=== PATIENT | female | born 1950 | race African-American/Black ===

== ENCOUNTER → 2016-12-25 | Outpatient (CLI) | payer OTHER ==
[2016-09-13 20:19] VITALS: BP 135/80
[~2016-12-25] MED LIST: ASPI81TA2 PO; ATOR40TA PO; BUDE10.2 IH; CARV25TA PO; CLOP75TA27 PO; CYCL10TA2 PO; FURO20TA3 PO; GABA600T2 PO; HYDR25TA PO; HYDR500C3 PO; LANS30CA17 PO; LIDO700A4 TP; LOSA50TA6 PO; MECL-51 PO; NIAC500T PO; NITR0.4T SL; OXYB5TAB7 PO; POTA10TA10 PO; SUCR1TAB29 PO; VENTOLIN HFA18 GM IH; ZOLP10TA4 PO; [UNRECOGNIZED DRUG - CODE] OP
--- NOTE | 2016-12-25 14:38 | RAD ---
Indication: Pain in the left foot and third toe. Time of exam 1426 hours. Bunion deformity is noted. The metatarsals are intact. Phalanges appear intact. Midfoot and hindfoot are unremarkable. No fractures are seen. Impression: Bunion deformity. No acute bony abnormality detected.
== END | disposition home or self-care (01) ==
LOC: RAD 13:49
PROVIDERS: ATTEND Family Medicine
DX: M79.672 Pain in left foot (principal); M79.675 Pain in left toe(s)
CPT/HCPCS: 73630

== ENCOUNTER 2017-01-31 01:58 | Emergency (ER) | payer OTHER ==
[~2017-01-31] VITALS: Ht 172.7 cm; Wt 80.3 kg
[2017-01-31] MEDS ORDERED: HYDROMORPHONE 2 MG/ML VIAL. IM ONE (02:30)
[2017-01-31] MEDS ORDERED: ONDANSETRON ODT 4 MG TAB.RAPDIS PO ONE (02:30)
[2017-01-31] MEDS ORDERED: OXYC-323 PO (03:49)
[2017-01-31] MEDS ORDERED: ONDA4TAB10 SL (03:49)
--- NOTE | 2017-01-31 03:50 | PHYS DOC ---
Past Medical History Past Medical History: Asthma, CHF, COPD, High Cholesterol, Hypertension, Pneumonia, Stroke Past Surgical History: Hysterectomy, Knee Replacement, Tonsillectomy, Other Additional Past Surgical Histo: ICD,carotid, trach,hernia repair,lypoma removals,L ANKLE & KNEE FUSIONS Alcohol Use: None Drug Use: None Adult General Chief Complaint Chief Complaint: MECHANICAL FALL HPI HPI Patient is a 66 year old female who presents to the ER after falling down on an outstretched hand and have a fracture of her distal radius. Patient reports that she was trying to walk to the bathroom and tripped. Patient presents with complaint of pain to her left wrist. Patient denies any other symptomatology. Patient denies any head trauma or loss of consciousness. Patient denies any chest pain or dizziness. Patient has a nausea vomiting diarrhea cough cold rhinorrhea. Patient has any hip pain or any other extremity discomfort. Patient's physical exam was significant for deformity to her left hip. Neurovascularly the patient is intact. She has good capillary refill. Sensation is intact. Patient's gait handgrip. Patient was placed in a sugar tong splint and will follow up with Dr. Hernandez early. I discussed the case with Dr. Forrest and he said that he will be able see her at 9 AM in the morning. This was discussed with the patient and she reports that she will be able to make this appointment. Review of Systems Review of Systems Constitutional: Denies fever or chills [] Eyes: Denies change in visual acuity, redness, or eye pain [] All other review systems are negative except as documented in the history of present illness portion. Current Medications Current Medications Current Medications Medications (Trade) Dose Ordered Sig/Junior Start Time Stop Time Status Last Admin Dose Admin Hydromorphone HCl (Dilaudid) 1 mg 1X ONCE 01/31/17 02:30 01/31/17 02:31 DC 01/31/17 02:51 1 MG Ondansetron HCl (Zofran Odt) 4 mg 1X ONCE 01/31/17 02:30 01/31/17 02:31 DC 01/31/17 02:51 4 MG Allergies Allergies Allergies Coded Allergies Type Severity Reaction Last Updated Verified JU Inhibitors Allergy Severe ANAPHYLAXIS 09/13/16 Yes levofloxacin Allergy Severe ANAPHYLAXIS 09/13/16 Yes Sulfa (Sulfonamide Antibiotics) Allergy Intermediate RASH 09/13/16 Yes celecoxib Allergy Intermediate ANAPHYLAXIS 09/13/16 No digoxin Allergy Intermediate 01/31/17 Yes doxycycline Allergy Intermediate RASH 09/13/16 Yes hydrochlorothiazide Allergy Intermediate 01/31/17 Yes hydrocodone Allergy Intermediate 01/31/17 Yes lisinopril Allergy Intermediate 01/31/17 Yes oxycodone Allergy Intermediate 01/31/17 Yes pentazocine Allergy Intermediate RASH 09/13/16 Yes nortriptyline Allergy Mild STOMACH UPSET 09/13/16 Yes Physical Exam Physical Exam Constitutional: Well developed, well nourished, no acute distress, non-toxic appearance. [] HENT: Normocephalic, atraumatic, bilateral external ears normal, oropharynx moist, no oral exudates, nose normal. [] Eyes: PERRLA, EOMI, conjunctiva normal, no discharge. [] Neck: Normal range of motion, no tenderness, supple, no stridor. [] Lungs & Thorax: Bilateral breath sounds clear to auscultation [] Abdomen: Bowel sounds normal, soft, no tenderness, no masses, no pulsatile masses. [] Skin: Warm, dry, no erythema, no rash. [] Back: No tenderness, no CVA tenderness. [] Extremities: See above Neurologic: Alert and oriented X 3, normal motor function, normal sensory function, no focal deficits noted. [] Psychologic: Affect normal, judgement normal, mood normal. [] Current Patient Data Vital Signs Vital Signs Date Time Temp Pulse Resp B/P Pulse Ox O2 Delivery O2 Flow Rate FiO2 01/31/17 04:29 78 18 103/77 95 Room Air 01/31/17 02:03 98.5 98.5 EKG EKG [] Radiology/Procedures Radiology/Procedures [] Course & Med Decision Making Course & Med Decision Making Pertinent Labs and Imaging studies reviewed. (See chart for details) [] Dragon Disclaimer Dragon Disclaimer This electronic medical record was generated, in whole or in part, using a voice recognition dictation system. Departure Departure Impression: Primary Impression: Distal radius fracture, left Disposition: 01 HOME, SELF-CARE Condition: IMPROVED Referrals: BRONSON SHEARER MD (PCP) TOYA ARMSTRONG II, MD Patient Instructions: Cast or Splint Care, Radius Fracture with [facility] Additional Instructions: Please follow up with Dr. Aberle today in his office at 9 AM. Scripts Ondansetron (Zofran Odt)4 Mg Tab.rapdis1 Tab SL Q6HRS PRN NAUSEA #20 TAB Prov:SALOME SHI MD 01/31/17 Oxycodone/Apap 5-325 (Percocet 5-325 Mg Tablet)1 Each Tablet1 Tab PO Q6-8HRS PRN PAIN #30 TAB Prov:SALOME SHI MD 01/31/17 Problem Qualifiers Primary Impression: Distal radius fracture, left Encounter type: initial encounter Fracture type: closed Fracture morphology : other intra-articular Qualified Code: S52.572A - Other intraarticular fracture of lower end of left radius, initial encounter for closed fracture SALOME SHI MD Jan 31, 2017 03:49
[2017-01-31 04:29] VITALS: BP 103/77
--- NOTE | 2017-01-31 07:19 | RAD ---
Exam performed: 4 views left wrist. History: Wrist pain, status post fall. Date of service: 01/31/17. Comparison: 02/03/08. Findings: AP, oblique and lateral views of the left wrist are obtained. There is a impacted nondisplaced fracture distal radius with mild volar angulation. Chronic changes in the ultrasound process. There is diffuse soft tissue swelling. No foreign body. Impression: Acute Impacted somewhat angulated fracture distal left radius.
--- NOTE | 2017-01-31 07:21 | RAD ---
Exam performed: 2 views left forearm. History: Left forearm pain, status post fall. Date of service: 01/31/17. Comparison: None available Findings: AP and lateral view of the left forearm are obtained. There is a impacted what angulated fracture of the distal left radius with associated soft tissue swelling. The elbow joint appears to bodies are identified. Impression: Impacted somewhat angulated fracture distal left radius.
== END 2017-01-31 05:25 | disposition home or self-care (01) ==
LOC: ER 01:58
DX: S52.572A Other intraarticular fracture of lower end of left radius, initial encounter for closed fracture (principal); R11.2 Nausea with vomiting, unspecified; R19.7 Diarrhea, unspecified; J00 Acute nasopharyngitis [common cold]; J45.909 Unspecified asthma, uncomplicated; I11.0 Hypertensive heart disease with heart failure; I50.9 Heart failure, unspecified; J44.9 Chronic obstructive pulmonary disease, unspecified; E78.00 Pure hypercholesterolemia, unspecified; Z88.1 Allergy status to other antibiotic agents; Z88.5 Allergy status to narcotic agent; Z88.2 Allergy status to sulfonamides; Z86.73 Personal history of transient ischemic attack (TIA), and cerebral infarction without residual deficits; Z87.01 Personal history of pneumonia (recurrent); Z96.659 Presence of unspecified artificial knee joint; Z88.8 Allergy status to other drugs, medicaments and biological substances; W01.0XXA Fall on same level from slipping, tripping and stumbling without subsequent striking against object, initial encounter; Y93.01 Activity, walking, marching and hiking; Y92.89 Other specified places as the place of occurrence of the external cause; Y99.8 Other external cause status
CPT/HCPCS: 29125; 73090; 73110; 96372; 99284; J1170; Q0162

== ENCOUNTER → 2017-05-28 | Outpatient (CLI) | payer OTHER ==
[~2017-05-28] MED LIST changes: +ASPI-630 PO; -ASPI81TA2 PO; -CLOP75TA27 PO; +CLOP75TA57 PO; +HYDR500C16 PO; -HYDR500C3 PO; -LANS30CA17 PO; +LANS30CA66 PO; +ONDA4TAB10 SL; +OXYC-323 PO; -POTA10TA10 PO; +POTA10TA12 PO; -SUCR1TAB29 PO; +SUCR1TAB35 PO
--- NOTE | 2017-05-28 15:19 | RAD ---
DATE: May 28, 2017 EXAM: DIGITAL SCREEN BILAT W/CAD HISTORY: Screening study. COMPARISON: 2014 and 2015 This study was interpreted with the benefit of Computerized Aided Detection (CAD). FINDINGS: The breast parenchyma shows scattered fibroglandular densities. There are no dominant suspicious masses, suspicious microcalcifications or evidence of architectural distortion. IMPRESSION: No mammographic indicators for malignancy. BI-RADS CATEGORY: 1 NEGATIVE RECOMMENDED FOLLOW-UP: 12M 12 MONTH FOLLOW-UP PQRS compliance statement: Patient information was entered into a reminder system with a target due date for the next mammogram. Mammography is a sensitive method for finding small breast cancers, but it does not detect them all and is not a substitute for careful clinical examination. A negative mammogram does not negate a clinically suspicious finding and should not result in delay in biopsying a clinically suspicious abnormality. "Our facility is accredited by the [employer] Mammography Program." The patient's breast density may affect the ability of mammography to detect breast cancer. There are 4 categories of breast density, A, B, C and D. Breast density A means that most of the breast tissue is replaced with adipose tissue and therefore is not dense. Breast density B means that the breast tissue is mildly dense and scattered. Breast density C means that the breast tissue is heterogeneously dense. Breast density D means that the breast tissue is very dense. Breast densities especially C and D may decrease the sensitivity of mammography to detect breast cancer. Therefore, the patient may benefit from 3-D breast mammography (3D breast tomography) as a part of their screening mammogram. Insurance may or may not pay for this additional imaging. The patient's breast density based on today's mammogram is category B.
== END | disposition home or self-care (01) ==
LOC: MAMMO 14:22
PROVIDERS: ATTEND Family Medicine
DX: Z12.31 Encounter for screening mammogram for malignant neoplasm of breast (principal)
CPT/HCPCS: G0202; 77067

== ENCOUNTER → 2017-08-05 | Outpatient (CLI) | payer OTHER ==
--- NOTE | 2017-08-05 09:50 | PMGORTHO ---
Left wrist, 3 views, 08/05/2017: History: Follow-up wrist fracture Comparison is made to a study from 05/02/2017. There is now bridging callus at the site of the distal radial fracture. The fracture fragments are unchanged in position with mild volar displacement and angulation of the major distal fracture fragment. No new bony abnormality is detected. IMPRESSION: Interval healing of the distal radial fracture.
== END ==
LOC: PMGORTHO 09:24
PROVIDERS: ATTEND Orthopaedic Surgery Sports Medicine

== ENCOUNTER 2017-09-11 16:09 | Emergency (ER) | payer OTHER ==
[~2017-09-11] VITALS: Ht 165.1 cm; Wt 83.0 kg
[2017-09-11] MEDS ORDERED: ACETAMINOPHEN 500 MG TABLET PO ONE (18:15)
--- NOTE | 2017-09-11 19:05 | PHYS DOC ---
Past Medical History Past Medical History: Asthma, CHF, COPD, High Cholesterol, Hypertension, Pneumonia, Stroke Past Surgical History: Hysterectomy, Knee Replacement, Tonsillectomy, Other Additional Past Surgical Histo: ICD,carotid, trach,hernia repair,lypoma removals,L ANKLE & KNEE FUSIONS Alcohol Use: None Drug Use: None Adult General Chief Complaint Chief Complaint: VISION PROBLEM HPI HPI Patient is a 66 year old AA female with history of cataracts who presents with right-sided headache/facial pain and orbital swelling after fall 4 days ago landing on her face. Patient states she tripped and lower face first pressing or glasses against her orbital rim. Denies loss of consciousness, neck pain. Patient takes daily aspirin but is not on other anticoagulants. Patient denies neck pain or any other injury or complaint. Reports pain with with right upward gaze, and difficulty reading due to blurred vision. Denies double vision, Review of Systems Review of Systems Review symptoms as per history of present illness. All other review symptoms are negative. Current Medications Current Medications Current Medications Medications (Trade) Dose Ordered Sig/Junior Start Time Stop Time Status Last Admin Dose Admin Acetaminophen (Tylenol) 1,000 mg 1X ONCE 09/11/17 18:15 09/11/17 18:16 DC 09/11/17 18:33 1,000 MG Allergies Allergies Allergies Coded Allergies Type Severity Reaction Last Updated Verified JU Inhibitors Allergy Severe ANAPHYLAXIS 09/13/16 Yes levofloxacin Allergy Severe ANAPHYLAXIS 09/13/16 Yes Sulfa (Sulfonamide Antibiotics) Allergy Intermediate RASH 09/13/16 Yes celecoxib Allergy Intermediate ANAPHYLAXIS 09/13/16 No digoxin Allergy Intermediate 01/31/17 Yes doxycycline Allergy Intermediate RASH 09/13/16 Yes hydrochlorothiazide Allergy Intermediate 01/31/17 Yes hydrocodone Allergy Intermediate 01/31/17 Yes lisinopril Allergy Intermediate 01/31/17 Yes oxycodone Allergy Intermediate 01/31/17 Yes pentazocine Allergy Intermediate RASH 09/13/16 Yes nortriptyline Allergy Mild STOMACH UPSET 09/13/16 Yes Physical Exam Physical Exam Constitutional: Well developed, well nourished, no acute distress, non-toxic appearance. [] HENT: Normocephalic, right superior orbital rim hematoma, right periorbital contusion, bilateral external ears normal, oropharynx moist, no oral exudates, nose normal. [] Eyes: PERRLA, EOMI, right lateral scleral urge. Hyphema. Normal limited posterior funduscopic exam. No proptosis. Neck: Normal range of motion, no tenderness, supple, no stridor. [] Cardiovascular:Heart rate regular rhythm, no murmur [] Lungs & Thorax: Bilateral breath sounds clear to auscultation [] Extremities: No tenderness, no cyanosis, no clubbing, ROM intact, no edema. [] Neurologic: Alert and oriented X 3, normal motor function, normal sensory function, no focal deficits noted. [] Psychologic: Affect normal, judgement normal, mood normal. [] Current Patient Data Vital Signs Vital Signs Date Time Temp Pulse Resp B/P (MAP) Pulse Ox O2 Delivery O2 Flow Rate FiO2 09/11/17 16:57 98.5 76 20 157/86 (109) 99 Room Air 98.5 EKG EKG [] Radiology/Procedures Radiology/Procedures [CT head/orbital: No acute injury per radiology report.] Course & Med Decision Making Course & Med Decision Making Pertinent Labs and Imaging studies reviewed. (See chart for details) [Patient with soft tissue facial trauma with normal posterior otoscopic exam. Extraocular muscles are intact with no entrapment. Visual acuity is noted 20/40 left eye, 20/50 right eye and 20/[address] head/orbits reviewed.] Dragon Disclaimer Dragon Disclaimer This electronic medical record was generated, in whole or in part, using a voice recognition dictation system. Departure Departure Impression: Primary Impression: Orbital contusion Additional Impression: Blurred vision, right eye Disposition: ADMITTED INPATIENT Condition: STABLE Referrals: BRONSON SHEARER MD (PCP) Patient Instructions: Eye - Blurred Vision Additional Instructions: Please contact Dr. Andino's office and schedule a follow-up appointment in the next 2-3 days. Take tramadol as needed for pain. If you develop new or concerning symptoms, please return to the emergency department. Problem Qualifiers SOHAIL ZUNIGA DO Sep 11, 2017 19:05
--- NOTE | 2017-09-11 19:09 | RAD ---
CT scan of the head without contrast 09/11/2017 Clinical History: Fall with head trauma. Technique: Unenhanced, contiguous, 5 mm axial sections were obtained through the head. One or more of the following individualized dose reduction techniques were utilized for this study: 1. Automated exposure control. 2. Adjustment of the mA and/or kV according to patient size. 3. Use of iterative reconstruction technique. Findings: Comparison study is dated 01/04/2013. There is generalized parenchymal atrophy. Areas of decreased attenuation are seen within the periventricular and subcortical white matter of both cerebral hemispheres consistent with areas of small vessel ischemic disease. Areas of encephalomalacia is seen throughout both cerebellar hemispheres, unchanged. No acute parenchymal abnormality is seen. No extra-axial fluid collection is noted. No skull fracture is seen. Impression: No acute intracranial abnormality is seen. Electronically signed by: Ángel Ibrahim MD (09/11/2017 7:06 PM) [facility]
--- NOTE | 2017-09-11 19:11 | RAD ---
CT scan of the orbits without contrast 09/11/2017 CLINICAL HISTORY: Fall with injury to the right orbit. TECHNIQUE: Unenhanced, contiguous, 0.625 mm axial sections were obtained through the orbits. 3 mm reconstructed sagittal, axial and coronal images were obtained. One or more of the following individualized dose reduction techniques were utilized for this study: 1. Automated exposure control. 2. Adjustment of the mA and/or kV according to patient size. 3. Use of iterative reconstruction technique. FINDINGS: Preseptal soft tissue swelling is seen involving the right orbit. No orbital fracture is seen. Mild mucosal thickening is seen involving the ethmoid air cells bilaterally. A 1 cm mucous retention cyst is seen involving the right maxillary sinus. No air-fluid level is seen. No facial bone fracture is seen. IMPRESSION: No orbital fracture is seen. Electronically signed by: Ángel Ibrahim MD (09/11/2017 7:08 PM) [facility]
[2017-09-11 20:15] VITALS: BP 156/76
--- NOTE | 2017-09-12 06:40 | EKG ---
[facility] [address] [place] [address] Test Date: 2017-09-11 Test Time: 17:45:07 Pat Name: EMERY VOGT Department: Room: Gender: F Clinical Services Consultant: : 1950 Requested By: SOHAIL ZUNIGA Order Number: [id number] Reading MD: Noemy Kinsey Measurements Intervals [place] Rate: 70 P: 35 WY: 186 QRS: 34 QRSD: 118 T: 49 QT: 422 QTc: 459 Interpretive Statements SINUS RHYTHM LEFT ATRIAL ABNORMALITY ABNORMAL ECG Electronically Signed On 09-14-2017 18:51:18 CDT by Nomey Kinsey
== END 2017-09-11 20:25 | disposition other institution (70) ==
LOC: ER 16:09
DX: S05.11XA Contusion of eyeball and orbital tissues, right eye, initial encounter (principal); I11.0 Hypertensive heart disease with heart failure; I50.9 Heart failure, unspecified; J44.9 Chronic obstructive pulmonary disease, unspecified; E78.00 Pure hypercholesterolemia, unspecified; Z86.73 Personal history of transient ischemic attack (TIA), and cerebral infarction without residual deficits; Z90.710 Acquired absence of both cervix and uterus; Z88.2 Allergy status to sulfonamides; Z88.1 Allergy status to other antibiotic agents; Z88.8 Allergy status to other drugs, medicaments and biological substances; Z88.6 Allergy status to analgesic agent; W01.0XXA Fall on same level from slipping, tripping and stumbling without subsequent striking against object, initial encounter; Y93.89 Activity, other specified; Y99.8 Other external cause status; Y92.89 Other specified places as the place of occurrence of the external cause
CPT/HCPCS: 70450; 70480; 93005; 99284-25

== ENCOUNTER → 2018-06-01 | Outpatient (CLI) | payer MEDICARE, OTHER | END | disposition home or self-care (01) | LOC: MAMMO 13:58 | DX: Z12.31 Encounter for screening mammogram for malignant neoplasm of breast (principal); I11.0 Hypertensive heart disease with heart failure; I50.9 Heart failure, unspecified; E78.5 Hyperlipidemia, unspecified; E78.00 Pure hypercholesterolemia, unspecified | CPT/HCPCS: 77063; 77067 ==

== ENCOUNTER → 2018-12-24 | Outpatient (CLI) | payer MEDICARE, OTHER ==
[~2018-12-24] MED LIST changes: +LOSA-73 PO; -LOSA50TA6 PO; -OXYC-323 PO; +OXYC1TAB15 PO
--- NOTE | 2018-12-25 08:25 | RAD ---
PQRS Compliance Statement: One or more of the following individualized dose reduction techniques were utilized for this examination: 1. Automated exposure control 2. Adjustment of the mA and/or kV according to patient size 3. Use of iterative reconstruction technique CT ABD PEL W/ORAL CONTRST ONLY Clinical Indication: LUQ MASS NO PAIN Comparison: CT abdomen and pelvis without contrast July 03, 2009. Technique: Helical CT imaging of the abdomen and pelvis is performed without IV contrast. Oral contrast is administered. Findings: Evaluation of solid organs is limited without IV contrast, decreasing sensitivity for detection of pathology. Mild atelectasis or scarring in the lung bases. Cardiac ICD leads. Mild cardiomegaly. There is mitral annular calcification. There is normal variant Chucky lobe. The liver is homogeneous. Calcified granulomas in the spleen. The gallbladder, pancreas, and adrenal glands are normal. Moderate atherosclerotic calcification of the abdominal aorta, no aneurysm. There is a 10 mm cortical calcification in the lower pole the right kidney. Small cyst in the upper pole of the right kidney. Question tiny cortical cyst of the interpolar left kidney. There is no hydronephrosis. Oral contrast outlines heterogeneous material in the stomach. There is no gastric wall thickening. There is no dilated small bowel. There are a couple of diverticula of the distal colon without inflammation. The appendix is normal. There is scattered stool in the colon. There is no colon wall thickening. There is a left periceliac soft tissue nodule measuring 2.1 x 1.9 cm, image 21. This nodule is not significantly changed from prior study indicating a benign process. This nodule may arise from the head of the left adrenal gland. If adrenal in origin, it is indeterminate by attenuation. There is no retroperitoneal adenopathy. Urinary bladder is not well distended accentuating wall thickness. Hysterectomy. No pelvic free fluid. No acute bone abnormality. IMPRESSION: 1. Left periceliac soft tissue nodule is stable for nearly 10 years, therefore considered benign. 2. No acute abdominal or pelvic abnormality. Electronically signed by: Dipak Saravia MD (12/25/2018 8:20 AM) [id number]
== END | disposition home or self-care (01) ==
LOC: CT 15:09
PROVIDERS: ATTEND Internal Medicine Hematology & Oncology
DX: R19.02 Left upper quadrant abdominal swelling, mass and lump (principal); I70.0 Atherosclerosis of aorta; D73.89 Other diseases of spleen; I51.7 Cardiomegaly
CPT/HCPCS: 74176

== ENCOUNTER → 2019-06-02 | Outpatient (CLI) | payer MEDICARE, OTHER ==
[~2019-06-02] MED LIST changes: -GABA600T2 PO; +GABA600T7 PO
--- NOTE | 2019-06-02 12:53 | RAD ---
DATE: 06/02/2019 EXAM: MAMMO SHARON SCREENING BILATERAL HISTORY: Routine screening COMPARISON: 05/24/2016, 05/28/2017, 06/01/2018 mammographic exams This study was interpreted with the benefit of Computerized Aided Detection (CAD). Breast Density: SCATTERED The breast parenchyma shows scattered fibroglandular densities. Breast parenchyma level B. FINDINGS: No suspicious calcification, mass, or distortion. IMPRESSION: Stable BI-RADS CATEGORY: 1 NEGATIVE RECOMMENDED FOLLOW-UP: 12M 12 MONTH FOLLOW-UP PQRS compliance statement: Patient information was entered into a reminder system with a target due date in one year for the next mammogram. Mammography is a sensitive method for finding small breast cancers, but it does not detect them all and is not a substitute for careful clinical examination. A negative mammogram does not negate a clinically suspicious finding and should not result in delay in biopsying a clinically suspicious abnormality. "Our facility is accredited by the [employer] Mammography Program."
== END | disposition home or self-care (01) ==
LOC: MAMMO 11:59
PROVIDERS: ATTEND Internal Medicine
DX: Z12.31 Encounter for screening mammogram for malignant neoplasm of breast (principal)
CPT/HCPCS: 77063; 77067

== ENCOUNTER → 2019-07-15 | Outpatient (CLI) | payer MEDICARE, OTHER ==
[2019-07-15 15:58] LABS: CALCIUM 9.4 mg/dL (8.5-10.1); GFR 67.1; POTASSIUM 4.2 mmol/L (3.5-5.1)
== END | disposition home or self-care (01) ==
LOC: LAB 15:11
PROVIDERS: ATTEND Internal Medicine Cardiovascular Disease
DX: I10 Essential (primary) hypertension (principal)
CPT/HCPCS: 36415; 80048; 83880

== ENCOUNTER 2019-10-16 18:34 | Inpatient (IN) | payer MEDICARE, OTHER ==
[~2019-10-16] VITALS: Ht 162.6 cm; Wt 87.2 kg
[~2019-10-16 18:34] MED LIST changes: -NITR0.4T SL; +NITR0.4T24 SL; +OXYB5TAB10 PO; -OXYB5TAB7 PO
[2019-10-16] MEDS ORDERED: ONDANSETRON PF 4 MG/2 ML VIAL. IVP ONE (19:00)
[2019-10-16] MEDS ORDERED: fentaNYL PF VIAL 100 MCG/2 ML VIAL IVP ONE (19:00)
--- NOTE | 2019-10-16 19:57 | RAD ---
Exam: Left foot 3 views INDICATION: Pain TECHNIQUE: Frontal, lateral and oblique views of the left foot Comparisons: None FINDINGS: Nondisplaced spiral fracture at the fifth metatarsal diaphysis. Moderate osteoarthritic change at the first MTP joint with mild hallux valgus. Diffuse osteopenia is noted. Soft tissues are unremarkable. IMPRESSION: Nondisplaced spiral fracture at the fifth metatarsal diaphysis. Electronically signed by: Philomena Dunham MD (10/16/2019 7:54 PM) [id number]
--- NOTE | 2019-10-16 20:00 | RAD ---
CT chest abdomen and pelvis without contrast: History: Pain status post fall Axial helical images of the chest, abdomen and pelvis were obtained without IV contrast. Comparison: none Findings: There is no mediastinal lymphadenopathy or hematoma. There is no hilar lymphadenopathy. Patchy opacities in lung bases are likely discoid atelectasis. There is significant coronary artery calcifications. There is a nondisplaced fracture through the posterior lateral left seventh rib and a displaced fracture of the posterior lateral eighth rib and ninth rib. There is a tiny pleural effusion on the left. Impression: 1. 3 rib fractures on the left. 2. Tiny left pleural effusion. End Impression CT SCAN OF THE ABDOMEN without IV CONTRAST. Findings: There is a small amount of hemorrhage posterior the spleen. There is a small amount of free fluid in the pelvis. The appendix is normal. Liver: Unremarkable Spleen: A few calcified granuloma Pancreas: Unremarkable Adrenal Glands: Unremarkable Kidneys: Unremarkable Evaluation of solid organs is limited without IV contrast. There is no mass or lymphadenopathy. There is no free air. There is no free fluid. Impression: No acute findings. End Impression CT of pelvis without contrast: There is no lymphadenopathy or free fluid. The bladder appears normal. There is no pericolonic inflammation. Impression: Small amount of hemorrhage posterior to the spleen and rib fractures near the spleen. Evaluation of solid organs is limited without IV contrast. There is likely a small splenic laceration. End impression PQRS Compliance Statement: One or more of the following individualized dose reduction techniques were utilized for this examination: 1. Automated exposure control 2. Adjustment of the mA and/or kV according to patient size 3. Use of iterative reconstruction technique Electronically signed by: Mark Galaviz III, MD (10/16/2019 7:57 PM) [id number]
--- NOTE | 2019-10-16 20:13 | PHYS DOC ---
Past Medical History Past Medical History: Asthma, CHF, COPD, High Cholesterol, Hypertension, [place], Pneumonia, Stroke, Other Additional Past Medical Histor: EMPHYSEMA Past Surgical History: Hysterectomy, Knee Replacement, Tonsillectomy, Other Additional Past Surgical Histo: ICD,carotid,trach,hernia repair,lypoma removals,L ANKLE & KNEE FUSIONS Alcohol Use: None Drug Use: None Adult General Chief Complaint Chief Complaint: BACK PAIN OR INJURY HPI HPI Patient is a 68 year old -[place] female with history of COPD, CHF, CAD is currently on aspirin who presents with persistent left-sided flank/mid axillary pain rib pain after accidental fall last evening. Patient states she has chronic balance issues and tripped approximately 18 hours prior to ED arrival. She reports hitting her left side on a table on the weight floor. She reports persistent chest wall pain and tenderness since the injury and shortness of breath due to pain with deep breathing. Patient states she did hit her head but denies headache, loss of consciousness or feeling dizzy or days. No neck pain. Denies abdominal pain or extremity pain with exception of left foot. No other acute symptoms or complaints. [] Review of Systems Review of Systems ROS as per HPI All other systems were reviewed and found to be within normal limits, except as documented in this note. Current Medications Current Medications Current Medications Medications (Trade) Dose Ordered Sig/Junior Start Time Stop Time Status Last Admin Dose Admin Fentanyl Citrate (Fentanyl 2ml Vial) 50 mcg 1X ONCE 10/16/19 19:00 10/16/19 19:01 DC 10/16/19 19:48 50 MCG Ondansetron HCl (Zofran) 4 mg 1X ONCE 10/16/19 19:00 10/16/19 19:01 DC 10/16/19 19:47 4 MG Allergies Allergies Allergies Coded Allergies Type Severity Reaction Last Updated Verified JU Inhibitors Allergy Severe ANAPHYLAXIS 09/13/16 Yes Iodine and Iodide Containing Produc Allergy Severe PT STATES CPR FOLLOWING IODINE INJECTION AT [facility] 12/24/18 Yes levofloxacin Allergy Severe ANAPHYLAXIS 09/13/16 Yes Sulfa (Sulfonamide Antibiotics) Allergy Intermediate RASH 09/13/16 Yes celecoxib Allergy Intermediate ANAPHYLAXIS 09/13/16 No digoxin Allergy Intermediate 01/31/17 Yes doxycycline Allergy Intermediate RASH 09/13/16 Yes hydrochlorothiazide Allergy Intermediate 01/31/17 Yes hydrocodone Allergy Intermediate 01/31/17 Yes lisinopril Allergy Intermediate 01/31/17 Yes nortriptyline Allergy Intermediate STOMACH UPSET 12/24/18 Yes oxycodone Allergy Intermediate 01/31/17 Yes pentazocine Allergy Intermediate RASH 09/13/16 Yes Uncoded Allergies Type Severity Reaction Last Updated Verified IV Contrast Allergy Severe 10/16/19 Physical Exam Physical Exam Constitutional: Well developed, well nourished, no acute distress, non-toxic appearance. [] HENT: Normocephalic, atraumatic, bilateral external ears normal, oropharynx moist, no oral exudates, nose normal. [] Eyes: PERRLA, EOMI, conjunctiva normal, no discharge. [] Neck: Normal range of motion, no tenderness, supple, no stridor. [] Cardiovascular:Heart rate regular rhythm, no murmur [] Lungs & Thorax: Bilateral breath sounds clear to auscultation, left lower maxillary rib pain, no crepitus or subcutaneous emphysema. [] Abdomen: Bowel sounds normal, soft, no tenderness. [] Skin: Warm, dry, no erythema, no rash. [] Back: No midline vertebral tenderness. Extensive bruising over left lateral ribs.. [] Extremities: No tenderness, no cyanosis, no clubbing, ROM intact, no edema. [] Neurologic: Alert and oriented X 3, normal motor function, normal sensory function, no focal deficits noted. [] Psychologic: Affect normal, judgement normal, mood normal. [] Current Patient Data Vital Signs Vital Signs Date Time Temp Pulse Resp B/P (MAP) Pulse Ox O2 Delivery O2 Flow Rate FiO2 10/16/19 20:00 68 16 119/57 (77) 99 Nasal Cannula 1.0 10/16/19 18:37 99.2 99.2 Radiology/Procedures Radiology/Procedures [[CT chest/abd/pelvis: Nondisplaced left lower rib fractures, intraperitoneal fluid posterior to spleen consistent with splenic hemorrhage and concerning for small splenic laceration. Interpretation limited due to lack of iodine due to allergy. X-ray left foot: Non displaced 5th metatarsal fracture.]] Course & Med Decision Making Course & Med Decision Making Pertinent Labs and Imaging studies reviewed. (See chart for details) [Vital signs and hemoglobin stable. Dr. Hong to admit to ICU and Dr. Call on- call for surgery to consult. ] Dragon Disclaimer Dragon Disclaimer This electronic medical record was generated, in whole or in part, using a voice recognition dictation system. Departure Departure Impression: Primary Impression: Metatarsal bone fracture Additional Impression: Splenic laceration Disposition: 09 ADMITTED INPATIENT Condition: STABLE Referrals: CONNIE CARABALLO MD (PCP) Problem Qualifiers SOHAIL ZUNIGA DO Oct 16, 2019 20:12
[2019-10-16 20:25] LABS: CALCIUM 9.3 mg/dL (8.5-10.1); CREATININE 0.9 mg/dL (0.6-1.0); GFR 75.8; POTASSIUM 4.4 mmol/L (3.5-5.1)
[2019-10-16 20:31] LABS: ALBUMIN 3.7 g/dL (3.4-5.0); ALBUMIN/GLOBULIN RATIO 0.9 (1.0-1.7); TOTAL BILIRUBIN 0.4 mg/dL (0.2-1.0)
[2019-10-16 20:34] LABS: PROTHROMBIN TIME PATIENT 13.5 SEC (11.7-14.0)
[2019-10-16 20:44] LABS: BASO % 0 % (0-3); EOS # 0.1 x10^3/uL (0.0-0.7); EOS % 1 % (0-3); HEMATOCRIT 35.4 % (36.0-47.0); HEMOGLOBIN 11.4 g/dL (12.0-15.5); LYMPH # 0.7 x10^3/uL (1.0-4.8); LYMPH % 9 % (24-48); MEAN CORPUSCULAR HEMOGLOBIN 29 pg (25-35); MEAN CORPUSCULAR HGB CONC 32 g/dL (31-37); MEAN CORPUSCULAR VOLUME 89 fL (79-100); MONO # 0.7 x10^3/uL (0.0-1.1); MONO % 9 % (0-9); NEUT # 6.1 x10^3/uL (1.8-7.7); NEUT % 80 % (31-73); PLATELET COUNT 569 x10^3/uL (140-400); RED BLOOD COUNT 3.97 x10^6/uL (3.50-5.40); RED CELL DISTRIBUTION WIDTH 18.7 % (11.5-14.5); WHITE BLOOD COUNT 7.6 x10^3/uL (4.0-11.0)
[2019-10-16] MEDS ORDERED: ONDANSETRON PF 4 MG/2 ML VIAL. IV PRN (21:45)
[2019-10-16] MEDS: MORPHINE SULFATE 2 MG/ML VIAL. IV PRN (21:57)
[2019-10-16 22:00] VITALS: BP 128/63
[2019-10-16 22:15] VITALS: BP 124/63
[2019-10-16 22:30] VITALS: BP 140/76
[2019-10-16 22:45] VITALS: BP 126/64
[2019-10-16 23:00] VITALS: BP 127/62
[2019-10-16] MEDS ORDERED: RANO10002 PO (23:15)
[2019-10-16] MEDS ORDERED: EZET10TA20 PO (23:15)
[2019-10-16] MEDS ORDERED: MELO7.5T29 PO (23:15)
[2019-10-16] MEDS ORDERED: OMEP40CA45 PO (23:15)
[2019-10-16] MEDS ORDERED: SPIR25TA5 PO (23:15)
[2019-10-16] MEDS ORDERED: ATOR40TA59 PO (23:15)
[2019-10-16] MEDS ORDERED: VENTOLIN HFA18 GM INH (23:15)
[2019-10-16] MEDS ORDERED: RUXO10TA PO (23:15)
[2019-10-16] MEDS ORDERED: KETO15CR2 TP (23:15)
[2019-10-16] MEDS ORDERED: SUCR1TAB PO (23:29)
[2019-10-16] MEDS: LIDOCAINE (700MG/PATCH) PATCH. TD PRN (23:56)
[2019-10-16] MEDS: GABAPENTIN 300 MG CAPSULE. PO SCH (23:56)
[2019-10-16] MEDS: oxyCODONE/APAP 5/325 1 TAB TABLET PO PRN (23:57)
[2019-10-16] MEDS: EZETIMIBE 10 MG TABLET. PO SCH (23:57)
[2019-10-17] VITALS (23 sets, daily range): BP systolic 87–140; BP diastolic 51–74
[2019-10-17] MEDS ORDERED: CYCLOBENZAPRINE 10 MG TABLET. PO PRN (03:45)
[2019-10-17 05:11] LABS: BASO % 1 % (0-3); EOS # 0.1 x10^3/uL (0.0-0.7); EOS % 1 % (0-3); HEMATOCRIT 33.8 % (36.0-47.0); LYMPH # 0.7 x10^3/uL (1.0-4.8); LYMPH % 11 % (24-48); MEAN CORPUSCULAR HEMOGLOBIN 29 pg (25-35); MEAN CORPUSCULAR HGB CONC 33 g/dL (31-37); MEAN CORPUSCULAR VOLUME 89 fL (79-100); MONO # 0.8 x10^3/uL (0.0-1.1); MONO % 12 % (0-9); NEUT % 76 % (31-73); PLATELET COUNT 501 x10^3/uL (140-400); RED CELL DISTRIBUTION WIDTH 18.8 % (11.5-14.5); WHITE BLOOD COUNT 6.6 x10^3/uL (4.0-11.0)
[2019-10-17 05:56] LABS: CALCIUM 8.9 mg/dL (8.5-10.1); CREATININE 0.9 mg/dL (0.6-1.0); GFR 75.8; POTASSIUM 3.9 mmol/L (3.5-5.1)
[2019-10-17] MEDS: oxyCODONE/APAP 5/325 1 TAB TABLET PO PRN ×3 (05:56→21:48)
[2019-10-17] MEDS: MORPHINE SULFATE 2 MG/ML VIAL. IV PRN ×2 (05:59→20:01)
--- NOTE | 2019-10-17 07:51 | PDOC ---
Provider Note Provider Note [id number] a/c resp fail rib fx mild ae of copd see orders KATHIE AREVALO MD Oct 17, 2019 07:51
--- NOTE | 2019-10-17 08:08 | CONS ---
DATE OF CONSULTATION: 10/17/2019 REASON FOR CONSULTATION: I was asked to see this 68-year-old lady for acute on chronic respiratory failure, rib fractures. HISTORY OF PRESENT ILLNESS: She does have history of [id number] smoking, stopped smoking in 2007. She has not felt well for the past few days. She did have increased shortness of breath, cough and wheezing. 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 She had pain on the left side. She presented to the Emergency Room last night. She has had increased shortness of breath. She has left chest wall pain. She has had wheezing. Her cough has improved. She does not have any sputum production. She is on oxygen 2 liters per minute via nasal cannula continuously. She is on CPAP for obstructive sleep apnea-hypopnea syndrome, which she does use on a regular basis. PAST MEDICAL HISTORY: CHF, COPD, high cholesterol, hypertension, CVA, knee replacement, ICD. ALLERGIES: JU INHIBITOR, IV CONTRAST, IODINE, SULFA, CELECOXIB, DIGOXIN, DOXYCYCLINE, HYDROCHLOROTHIAZIDE, HYDROCODONE, LEVOFLOXACIN. MEDICATIONS: Currently, she is on Neurontin, Zetia, Lidoderm patch p.r.n., Flexeril. SOCIAL HISTORY: History of [id number] smoking, stopped smoking in 2007. FAMILY HISTORY: There is no history of lung disease. REVIEW OF SYSTEMS: As mentioned as above, other systems otherwise negative. PHYSICAL EXAMINATION: GENERAL: This is a well-developed lady. VITAL SIGNS: Her O2 saturation on 4 liters of oxygen is 100%, respiratory rate 18, heart rate 62, blood pressure 132/57, temperature 98.1. HEENT: Normocephalic, atraumatic. Pupils equal, round, reactive to light. She has shallow oropharynx. Nose is clear. NECK: There is no JVD, lymphadenopathy or thyromegaly. CARDIOVASCULAR: Regular rate and rhythm. PMI is nondisplaced. CHEST: Inspection is normal. LUNGS: There are a few end expiratory wheezing. Percussion is within normal limits. ABDOMEN: Soft. Bowel sounds are good. There is no mass. EXTREMITIES: There is no edema. LYMPHATICS: There is no lymphadenopathy. NEUROLOGIC: Alert and oriented. SKIN: Chronic changes. LABORATORY DATA: I reviewed the following lab data: Sodium 141, potassium 3.9, chloride 104, CO2 of 29, glucose 92, BUN 6, creatinine 0.9. Troponin 0.027. BNP 489. WBC 6.6, hemoglobin 11, platelets 501. INR 1.1. CT of the chest, abdomen and pelvis did show a left 7th, 8th and 9th rib fracture, tiny pleural effusion, small amount of hemorrhage posterior to the spleen, rib fractures near the spleen, likely a small splenic laceration. IMPRESSION: 1. Acute on chronic respiratory failure secondary to rib fracture, mild acute exacerbation of chronic obstructive pulmonary disease. She has tiny left pleural effusion. We need to monitor her for hemothorax. 2. Abnormal CT of the chest. 3. Chronic obstructive pulmonary disease with mild acute exacerbation. 4. Obstructive sleep apnea-hypopnea syndrome. 5. History of congestive heart failure. 6. Status post fall with rib fractures. 7. Spleen laceration. 8. Ex-smoker. PLAN AND RECOMMENDATIONS: 1. Titrate FiO2 to keep O2 saturation 92%. 2. Start bronchodilator. 3. Start inhaled corticosteroid, she may require systemic steroid. 4. Start incentive spirometer. 5. Surgery is consulted for a splenic laceration. 6. Use CPAP during sleep, may use p.r.n. during the day if she develops increased shortness of breath. 7. Monitor in ICU until seen by Surgery. 8. CXR in am. The findings and recommendations were discussed with the patient. She understood and agreed to proceed with the plan. I have discussed the findings and recommendation with RN. Thank you very much for allowing me to participate in care of this very nice lady. AKTHIE AREVALO M.D. : AYUSH/eun JOB#: [id number] / [id number] MALU
[2019-10-17] MEDS: BUDESONIDE 0.5 MG/2 ML NEBU. NEB SCH ×2 (08:11→19:45)
[2019-10-17] MEDS: IPRATRPIUM/ALBUTEROL 0.5/2.5MG 3 ML NEBU. NEB SCH ×4 (08:11→19:45)
[2019-10-17] MEDS ORDERED: TEMAZEPAM 7.5 MG CAPSULE PO PRN (08:15)
[2019-10-17] MEDS ORDERED: KETOROLAC 15 MG/ML VIAL. IVP PRN (08:15)
[2019-10-17] MEDS: IV NORMAL SALINE 1000ML BAG 1,000 ML IV SCH ×3 (08:30→09:16)
--- NOTE | 2019-10-17 08:56 | PDOC1 ---
History and Physical Date of Admission Date of Admission DATE: 10/17/19 TIME: 08:50 Identification/Chief Complaint Chief Complaint fall at home hurt her left ribs on table Source Source: Caregiver, Chart review, Patient History of Present Illness History of Present Illness 1: 30 AM friday , she fell at home and hit her left side hard on a table, unable to get up after and called EMS<> Imaging sgiws 3 left rib fxs, a non displaced 5th left metatarsal fx and small splenic laceration,. There is pleuritic pain on left side as expected, fulfilled SIRS criteria bit no organ dysfcn, seen in ICU, FULL CODE She live alone at home and uses walker. She has an indwelling pacer and follows with DR Patrizia weinstein at [facility] and emphysematous type COPD< on [facility], follows with DR Rolly Salas [facility]. VS and labs are otherwise ok Past Medical History Cardiovascular: CAD, HTN, OR, Hyperlipidemia Pulmonary: Asthma, Bronchitis, COPD, Pneumonia Past Surgical History Past Surgical History: Other (left leg sx, thyroidectomy?) Family History Family History: Cancer, Heart Disease Social History Smoke: Quit ALCOHOL: none Drugs: None Current Problem List Problem List Problems Medical Problems: (1) Metatarsal bone fracture Status: Acute Current Medications Current Medications Current Medications Fentanyl Citrate (Fentanyl 2ml Vial) 50 mcg 1X ONCE IVP Last administered on 10/16/19at 19:48; Start 10/16/19 at 19:00; Stop 10/16/19 at 19:01; Status DC Ondansetron HCl (Zofran) 4 mg 1X ONCE IVP Last administered on 10/16/19at 19:47; Start 10/16/19 at 19:00; Stop 10/16/19 at 19:01; Status DC Ondansetron HCl (Zofran) 4 mg PRN Q8HRS PRN IV NAUSEA/VOMITING; Start 10/16/19 at 21:45; Stop 10/17/19 at 21:44 Morphine Sulfate (Morphine Sulfate) 2 mg PRN Q2HR PRN IV PAIN Last administered on 10/17/19at 05:59; Start 10/16/19 at 21:45; Stop 10/17/19 at 21:44 Influenza Virus Vaccine Quadrival (Afluria Quad 2019-20 (3yr Up) Syringe) 0.5 ml ONCE ONCE VAX IM ; Start 10/17/19 at 09:00; Stop 10/17/19 at 09:01 EZETIMIBE (Zetia) 10 mg DAILY PO ; Start 10/17/19 at 09:00; Stop 10/16/19 at 23:35; Status DC Non-Formulary Medication (Gabapentin ) 600 mg BID PO ; Start 10/17/19 at 09:00; Stop 10/16/19 at 23:35; Status DC Lidocaine (Lidoderm) 1 patch PRN DAILY PRN TD PAIN Last administered on 10/16/19at 23:56; Start 10/16/19 at 23:30 EZETIMIBE (Zetia) 10 mg DAILY PO Last administered on 10/16/19at 23:57; Start 10/16/19 at 23:30 Gabapentin (Neurontin) 600 mg BID PO Last administered on 10/16/19at 23:56; Start 10/16/19 at 23:45 Oxycodone/ Acetaminophen (Percocet 5/325) 1 tab PRN Q6HRS PRN PO PAIN Last administered on 10/17/19at 05:56; Start 10/16/19 at 23:45 Miscellaneous (Lidoderm Patch Removal) 1 ea QHS MC ; Start 10/17/19 at 21:00 Cyclobenzaprine HCl (Flexeril) 10 mg PRN Q6HRS PRN PO MUSCLE SPASMS Last administered on 10/17/19at 03:54; Start 10/17/19 at 03:45 Albuterol/ Ipratropium (Duoneb) 3 ml RTQID NEB Last administered on 10/17/19at 08:11; Start 10/17/19 at 08:00 Budesonide (Pulmicort) 0.5 mg RTBID NEB Last administered on 10/17/19at 08:11; Start 10/17/19 at 08:00 Temazepam (Restoril) 7.5 mg PRN QHS PRN PO INSOMNIA; Start 10/17/19 at 08:15 Ketorolac Tromethamine (Toradol 15mg Vial) 15 mg PRN Q6HRS PRN IVP PAIN; Start 10/17/19 at 08:15; Stop 10/22/19 at 08:14; Status UNV Sodium Chloride 1,000 ml @ 2,700 mls/hr Q23M IV ; Start 10/17/19 at 08:30; Stop 10/17/19 at 09:30 Active Scripts Active Zofran Odt (Ondansetron) 4 Mg Tab.rapdis 1 Tab SL Q6HRS PRN Percocet 5-325 Mg Tablet (Oxycodone/Acetaminophen) 1 Each Tablet 1 Tab PO Q6- 8HRS PRN Reported Sucralfate 1 Gm Tablet 1 Gm PO BID Ventolin Hfa Inhaler (Albuterol Sulfate) 18 Gm Hfa.aer.ad 2 Puff INH Q4HRS PRN Spironolactone 25 Mg Tablet 0.5 Tab PO DAILY Ranexa (Ranolazine) 1,000 Mg Tab.er.12h 1 Tab PO BID 30 Days Omeprazole 40 Mg Capsule.dr 1 Cap PO DAILY Meloxicam 7.5 Mg Tablet 1 Tab PO DAILY PRN 30 Days Ketoconazole 15 Gm Cream..g. 1 Katharina TP BID Zetia (Ezetimibe) 10 Mg Tablet 1 Tab PO DAILY 30 Days Jakafi (Ruxolitinib Phosphate) 10 Mg Tablet 1 Tab PO BID 30 Days Atorvastatin Calcium 40 Mg Tablet 80 Mg PO DAILY Ventolin Hfa Inhaler (Albuterol Sulfate) 18 Gm Hfa.aer.ad 18 Gm IH Symbicort 160-4.5 Mcg Inhaler (Budesonide/Formoterol Fumarate) 10.2 Gm Hfa.aer.ad 10.2 Gm IH BID Oxybutynin Chloride 5 Mg Tablet 2.5 Mg PO PRN DAILY Nitrostat (Nitroglycerin) 0.4 Mg Tab.subl 0.4 Mg SL Gabapentin 600 Mg Tablet 600 Mg PO BID Cyclobenzaprine Hcl 10 Mg Tablet 10 Mg PO Aspirin 81 Mg Tab.chew 81 Mg PO DAILY Allergies Allergies: Coded Allergies: JU Inhibitors (Verified Allergy, Severe, ANAPHYLAXIS, 09/13/16) Iodine and Iodide Containing Produc (Verified Allergy, Severe, PT STATES CPR FOLLOWING IODINE INJECTION AT [facility], 12/24/18) levofloxacin (Verified Allergy, Severe, ANAPHYLAXIS, 09/13/16) Sulfa (Sulfonamide Antibiotics) (Verified Allergy, Intermediate, RASH, 09/13/16) celecoxib (Verified Allergy, Intermediate, ANAPHYLAXIS, 10/16/19) digoxin (Verified Allergy, Intermediate, 01/31/17) doxycycline (Verified Allergy, Intermediate, RASH, 09/13/16) hydrochlorothiazide (Verified Allergy, Intermediate, 01/31/17) hydrocodone (Verified Allergy, Intermediate, 01/31/17) lisinopril (Verified Allergy, Intermediate, 01/31/17) nortriptyline (Verified Allergy, Intermediate, STOMACH UPSET, 12/24/18) oxycodone (Verified Allergy, Intermediate, ITCHING ONLY WHEN TAKING HIGH DOSES, 10/16/19) pentazocine (Verified Allergy, Intermediate, RASH, 09/13/16) Uncoded Allergies: IV Contrast (Allergy, Severe, 10/16/19) Patient states it stops her heart ROS Review of System left rib pain, left 5th digit toe pain, all else neg, Physical Exam General: Alert, Oriented X3, Cooperative, No acute distress HEENT: PERRLA Lungs: Clear to auscultation, Normal air movement Cardiovascular: S1, S2 Breasts: Normal, Rt breast nml w/o mass, Lt breast nml w/o mass, Nipples normal Abdomen: Normal bowel sounds, Soft, No tenderness, No hepatosplenomegaly, No masses, Other (left rib pain) Rectal Exam: not examined PELVIC: Nml ext genitalia Extremities: No clubbing, No cyanosis, No edema, Normal pulses Skin: No rashes, No breakdown, No significant lesion Neuro: Normal gait, Normal speech, Strength at 5/5 X4 ext, Normal tone, Sensation intact, Cranial nerves 3-12 NL, Reflexes 2+ Psych/Mental Status: Mental status NL, Mood NL Vitals Vitals Vital Signs Date Time Temp Pulse Resp B/P (MAP) Pulse Ox O2 Delivery O2 Flow Rate FiO2 10/17/19 08:14 98 2.0 10/17/19 06:00 62 14 132/57 (82) Nasal Cannula 10/17/19 04:00 98.1 98.1 Labs Labs Laboratory Tests Test 10/16/19 20:10 10/17/19 03:30 White Blood Count 7.6 x10^3/uL (4.0-11.0) 6.6 x10^3/uL (4.0-11.0) Red Blood Count 3.97 x10^6/uL (3.50-5.40) 3.80 x10^6/uL (3.50-5.40) Hemoglobin 11.4 g/dL (12.0-15.5) 11.0 g/dL (12.0-15.5) Hematocrit 35.4 % (36.0-47.0) 33.8 % (36.0-47.0) Mean Corpuscular Volume 89 fL (79-100) 89 fL (79-100) Mean Corpuscular Hemoglobin 29 pg (25-35) 29 pg (25-35) Mean Corpuscular Hemoglobin Concent 32 g/dL (31-37) 33 g/dL (31-37) Red Cell Distribution Width 18.7 % (11.5-14.5) 18.8 % (11.5-14.5) Platelet Count 569 x10^3/uL (140-400) 501 x10^3/uL (140-400) Neutrophils (%) (Auto) 80 % (31-73) 76 % (31-73) Lymphocytes (%) (Auto) 9 % (24-48) 11 % (24-48) Monocytes (%) (Auto) 9 % (0-9) 12 % (0-9) Eosinophils (%) (Auto) 1 % (0-3) 1 % (0-3) Basophils (%) (Auto) 0 % (0-3) 1 % (0-3) Neutrophils # (Auto) 6.1 x10^3/uL (1.8-7.7) 5.0 x10^3/uL (1.8-7.7) Lymphocytes # (Auto) 0.7 x10^3/uL (1.0-4.8) 0.7 x10^3/uL (1.0-4.8) Monocytes # (Auto) 0.7 x10^3/uL (0.0-1.1) 0.8 x10^3/uL (0.0-1.1) Eosinophils # (Auto) 0.1 x10^3/uL (0.0-0.7) 0.1 x10^3/uL (0.0-0.7) Basophils # (Auto) 0.0 x10^3/uL (0.0-0.2) 0.0 x10^3/uL (0.0-0.2) Prothrombin Time 13.5 SEC (11.7-14.0) Prothromb Time International Ratio 1.1 (0.8-1.1) Sodium Level 139 mmol/L (136-145) 141 mmol/L (136-145) Potassium Level 4.4 mmol/L (3.5-5.1) 3.9 mmol/L (3.5-5.1) Chloride Level 104 mmol/L (98-107) 104 mmol/L (98-107) Carbon Dioxide Level 32 mmol/L (21-32) 29 mmol/L (21-32) Anion Gap 3 (6-14) 8 (6-14) Blood Urea Nitrogen 8 mg/dL (7-20) 6 mg/dL (7-20) Creatinine 0.9 mg/dL (0.6-1.0) 0.9 mg/dL (0.6-1.0) Estimated GFR (Cockcroft-Gault) 75.8 75.8 BUN/Creatinine Ratio 9 (6-20) Glucose Level 101 mg/dL (70-99) 92 mg/dL (70-99) Calcium Level 9.3 mg/dL (8.5-10.1) 8.9 mg/dL (8.5-10.1) Total Bilirubin 0.4 mg/dL (0.2-1.0) Aspartate Amino Transf (AST/SGOT) 31 U/L (15-37) Alanine Aminotransferase (ALT/SGPT) 24 U/L (14-59) Alkaline Phosphatase 102 U/L (46-116) Troponin I Quantitative 0.027 ng/mL (0.000-0.055) ZY-Yky-O-Type Natriuretic Peptide 489 pg/mL (0-124) Total Protein 8.0 g/dL (6.4-8.2) Albumin 3.7 g/dL (3.4-5.0) Albumin/Globulin Ratio 0.9 (1.0-1.7) Laboratory Tests Test 10/16/19 20:10 10/17/19 03:30 White Blood Count 7.6 x10^3/uL (4.0-11.0) 6.6 x10^3/uL (4.0-11.0) Red Blood Count 3.97 x10^6/uL (3.50-5.40) 3.80 x10^6/uL (3.50-5.40) Hemoglobin 11.4 g/dL (12.0-15.5) 11.0 g/dL (12.0-15.5) Hematocrit 35.4 % (36.0-47.0) 33.8 % (36.0-47.0) Mean Corpuscular Volume 89 fL (79-100) 89 fL (79-100) Mean Corpuscular Hemoglobin 29 pg (25-35) 29 pg (25-35) Mean Corpuscular Hemoglobin Concent 32 g/dL (31-37) 33 g/dL (31-37) Red Cell Distribution Width 18.7 % (11.5-14.5) 18.8 % (11.5-14.5) Platelet Count 569 x10^3/uL (140-400) 501 x10^3/uL (140-400) Neutrophils (%) (Auto) 80 % (31-73) 76 % (31-73) Lymphocytes (%) (Auto) 9 % (24-48) 11 % (24-48) Monocytes (%) (Auto) 9 % (0-9) 12 % (0-9) Eosinophils (%) (Auto) 1 % (0-3) 1 % (0-3) Basophils (%) (Auto) 0 % (0-3) 1 % (0-3) Neutrophils # (Auto) 6.1 x10^3/uL (1.8-7.7) 5.0 x10^3/uL (1.8-7.7) Lymphocytes # (Auto) 0.7 x10^3/uL (1.0-4.8) 0.7 x10^3/uL (1.0-4.8) Monocytes # (Auto) 0.7 x10^3/uL (0.0-1.1) 0.8 x10^3/uL (0.0-1.1) Eosinophils # (Auto) 0.1 x10^3/uL (0.0-0.7) 0.1 x10^3/uL (0.0-0.7) Basophils # (Auto) 0.0 x10^3/uL (0.0-0.2) 0.0 x10^3/uL (0.0-0.2) Prothrombin Time 13.5 SEC (11.7-14.0) Prothromb Time International Ratio 1.1 (0.8-1.1) Sodium Level 139 mmol/L (136-145) 141 mmol/L (136-145) Potassium Level 4.4 mmol/L (3.5-5.1) 3.9 mmol/L (3.5-5.1) Chloride Level 104 mmol/L (98-107) 104 mmol/L (98-107) Carbon Dioxide Level 32 mmol/L (21-32) 29 mmol/L (21-32) Anion Gap 3 (6-14) 8 (6-14) Blood Urea Nitrogen 8 mg/dL (7-20) 6 mg/dL (7-20) Creatinine 0.9 mg/dL (0.6-1.0) 0.9 mg/dL (0.6-1.0) Estimated GFR (Cockcroft-Gault) 75.8 75.8 BUN/Creatinine Ratio 9 (6-20) Glucose Level 101 mg/dL (70-99) 92 mg/dL (70-99) Calcium Level 9.3 mg/dL (8.5-10.1) 8.9 mg/dL (8.5-10.1) Total Bilirubin 0.4 mg/dL (0.2-1.0) Aspartate Amino Transf (AST/SGOT) 31 U/L (15-37) Alanine Aminotransferase (ALT/SGPT) 24 U/L (14-59) Alkaline Phosphatase 102 U/L (46-116) Troponin I Quantitative 0.027 ng/mL (0.000-0.055) XG-Awu-E-Type Natriuretic Peptide 489 pg/mL (0-124) Total Protein 8.0 g/dL (6.4-8.2) Albumin 3.7 g/dL (3.4-5.0) Albumin/Globulin Ratio 0.9 (1.0-1.7) VTE Prophylaxis Ordered VTE Prophylaxis Devices: Yes VTE Pharmacological Prophylaxi: Yes Assessment/Plan Assessment/Plan 3 left rib fxs, traumatic SMall spleni lac- likely watch and monitor HH approach, GS consulted FAll at home GEn weakness,ambulates with walker 5th metatarsal non displaced fx COPD< emphysemaous type, O2 dependent (anywhere between 5-8 LNC) - DR Rolly salas [facility] Ex smoker Indwelling pacer - DR Acharya [facility] cards HTN< CAD withs tents etyc - chronic stable SEPSIS no organ dysfcn PLAN: Ok to t/o ICU to tele bed Add ortho consult - NPO till rounds though doubt surgical need GS consulted Follow pulmo recs, O2 support HH tmr - given splenic lac - minimal abd pain Hold ASA 81 and meloxica, given splenic lac Dw FUSE COILER edith and pt LILIAM GIL MD Oct 17, 2019 08:56
[2019-10-17] MEDS ORDERED: FLU VAX QS 2019-20 (36MOS+)/PF 0.5 ML SYRINGE. VAX IM ONE (09:00)
[2019-10-17] MEDS ORDERED: NON FORMULARY ITEM (Gabapentin 600 MG) PO SCH (09:00)
[2019-10-17] MEDS ORDERED: ONDANSETRON ODT 4 MG TAB.RAPDIS. PO PRN (09:00)
[2019-10-17] MEDS ORDERED: OXYBUTYNIN CHLORIDE 5 MG TABLET PO PRN (09:00)
[2019-10-17] MEDS ORDERED: NON FORMULARY ITEM (Budesonide/Formoterol Fumarate (Symbicort 160-4.5 Mcg Inhaler) 10.2 GM IH SCH (09:00)
[2019-10-17] MEDS ORDERED: EZETIMIBE 10 MG TABLET. PO SCH (09:00)
[2019-10-17] MEDS ORDERED: ALBUTEROL SULFATE 2.5 MG/3 ML NEBU. NEB PRN (09:15)
[2019-10-17] MEDS: SPIRONOLACTONE 25 MG TABLET PO SCH (10:00)
[2019-10-17] MEDS: RANOLAZINE 500 MG TAB.ER.12H PO SCH ×2 (10:54→21:13)
[2019-10-17] MEDS: CYCLOBENZAPRINE 10 MG TABLET. PO SCH ×3 (10:55→21:12)
[2019-10-17] MEDS: EZETIMIBE 10 MG TABLET. PO SCH (10:55)
[2019-10-17] MEDS: PANTOPRAZOLE 40 MG TABLET.DR. PO SCH (10:55)
[2019-10-17] MEDS: GABAPENTIN 300 MG CAPSULE. PO SCH ×2 (10:55→14:45)
[2019-10-17] MEDS: KETOCONAZOLE 2% TOPICAL CREAM 15GM TUBE. TP SCH ×2 (10:56→21:13)
[2019-10-17] MEDS: LIDOCAINE (700MG/PATCH) PATCH. TD PRN (11:02)
--- NOTE | 2019-10-17 13:32 | PDOC2 ---
CONSULT Date of Consult Date of Consult DATE: 10/17/19 TIME: 13:27 Reason for Consult Reason for Consult: s/p fall Referring Physician Referring Physician: Dr. Hong Identification/Chief Complaint Chief Complaint left chest pain Source Source: Chart review, Patient History of Present Illness Reason for Visit: 68 yo F was going to get her nebulizer, but lost her footing and fell on a coffee table. She also notes a flower pot fell on her head. She doesn't think she passed out but not sure how she injured her foot. She is seen in the ICU wi th c/o non bloody cough and chest pain. Past Medical History Cardiovascular: CAD, HTN, AL, Hyperlipidemia Pulmonary: Asthma, Bronchitis, COPD, Pneumonia Past Surgical History Past Surgical History: Other (left leg sx, thyroidectomy?) Family History Family History: Cancer, Heart Disease Social History Quit ALCOHOL: none Drugs: None Current Problem List Problem List Problems Medical Problems: (1) Metatarsal bone fracture Status: Acute Current Medications Current Medications Current Medications Fentanyl Citrate (Fentanyl 2ml Vial) 50 mcg 1X ONCE IVP Last administered on 10/16/19at 19:48; Start 10/16/19 at 19:00; Stop 10/16/19 at 19:01; Status DC Ondansetron HCl (Zofran) 4 mg 1X ONCE IVP Last administered on 10/16/19at 19:47; Start 10/16/19 at 19:00; Stop 10/16/19 at 19:01; Status DC Ondansetron HCl (Zofran) 4 mg PRN Q8HRS PRN IV NAUSEA/VOMITING; Start 10/16/19 at 21:45; Stop 10/17/19 at 21:44 Morphine Sulfate (Morphine Sulfate) 2 mg PRN Q2HR PRN IV PAIN Last administered on 10/17/19at 05:59; Start 10/16/19 at 21:45; Stop 10/17/19 at 21:44 Influenza Virus Vaccine Quadrival (Afluria Quad 2019-20 (3yr Up) Syringe) 0.5 ml ONCE ONCE VAX IM ; Start 10/17/19 at 09:00; Stop 10/17/19 at 09:01; Status DC EZETIMIBE (Zetia) 10 mg DAILY PO ; Start 10/17/19 at 09:00; Stop 10/16/19 at 23:35; Status DC Non-Formulary Medication (Gabapentin ) 600 mg BID PO ; Start 10/17/19 at 09:00; Stop 10/16/19 at 23:35; Status DC Lidocaine (Lidoderm) 1 patch PRN DAILY PRN TD PAIN Last administered on 10/17/19at 11:02; Start 10/16/19 at 23:30 EZETIMIBE (Zetia) 10 mg DAILY PO Last administered on 10/17/19at 10:55; Start 10/16/19 at 23:30 Gabapentin (Neurontin) 600 mg BID PO Last administered on 10/17/19at 10:55; Start 10/16/19 at 23:45 Oxycodone/ Acetaminophen (Percocet 5/325) 1 tab PRN Q6HRS PRN PO PAIN Last administered on 10/17/19at 05:56; Start 10/16/19 at 23:45 Miscellaneous (Lidoderm Patch Removal) 1 ea QHS MC ; Start 10/17/19 at 21:00 Cyclobenzaprine HCl (Flexeril) 10 mg PRN Q6HRS PRN PO MUSCLE SPASMS Last administered on 10/17/19at 03:54; Start 10/17/19 at 03:45 Albuterol/ Ipratropium (Duoneb) 3 ml RTQID NEB Last administered on 10/17/19at 11:44; Start 10/17/19 at 08:00 Budesonide (Pulmicort) 0.5 mg RTBID NEB Last administered on 10/17/19at 08:11; Start 10/17/19 at 08:00 Temazepam (Restoril) 7.5 mg PRN QHS PRN PO INSOMNIA; Start 10/17/19 at 08:15 Ketorolac Tromethamine (Toradol 15mg Vial) 15 mg PRN Q6HRS PRN IVP PAIN; Start 10/17/19 at 08:15; Stop 10/22/19 at 08:14; Status UNV Sodium Chloride 1,000 ml @ 2,700 mls/hr Q23M IV ; Start 10/17/19 at 08:30; Stop 10/17/19 at 09:30; Status DC Atorvastatin Calcium (Lipitor) 80 mg QHS PO ; Start 10/17/19 at 21:00 Cyclobenzaprine HCl (Flexeril) 10 mg TID PO Last administered on 10/17/19at 10:55; Start 10/17/19 at 10:00 Ketoconazole (Nizoral 2% Topical) 1 katharina BID TP Last administered on 10/17/19at 10:56; Start 10/17/19 at 10:00 Ondansetron HCl (Zofran Odt) 4 mg PRN Q6HRS PRN PO NAUSEA; Start 10/17/19 at 09:00 Oxybutynin Chloride (Ditropan) 2.5 mg PRN DAILY PRN PO BLADDER Last administere d on 10/17/19at 10:53; Start 10/17/19 at 09:00 Spironolactone (Aldactone) 12.5 mg DAILY PO ; Start 10/17/19 at 10:00 Sucralfate (Carafate) 1 gm BID PO ; Start 10/17/19 at 12:00 Albuterol Sulfate (Ventolin Neb Soln) 2.5 mg PRN Q6HRS PRN NEB SHORTNESS OF BREATH; Start 10/17/19 at 09:15 Non-Formulary Medication (Budesonide/ Formoterol Fumarate (Symbicort 160-4.5 Mcg Inhaler)) 10.2 gm BID IH ; Start 10/17/19 at 09:00; Status UNV Pantoprazole Sodium (Protonix) 40 mg DAILYAC PO Last administered on 10/17/19at 10:55; Start 10/17/19 at 10:00 Ranolazine (Ranexa) 1,000 mg BID PO Last administered on 10/17/19at 10:54; Start 10/17/19 at 10:00 Non-Formulary Medication (Ruxolitinib Phosphate (Jakafi)) 1 tab BID PO ; Start 10/17/19 at 09:00; Status UNV Active Scripts Active Zofran Odt (Ondansetron) 4 Mg Tab.rapdis 1 Tab SL Q6HRS PRN Percocet 5-325 Mg Tablet (Oxycodone/Acetaminophen) 1 Each Tablet 1 Tab PO Q6- 8HRS PRN Reported Sucralfate 1 Gm Tablet 1 Gm PO BID Ventolin Hfa Inhaler (Albuterol Sulfate) 18 Gm Hfa.aer.ad 2 Puff INH Q4HRS PRN Spironolactone 25 Mg Tablet 0.5 Tab PO DAILY Ranexa (Ranolazine) 1,000 Mg Tab.er.12h 1 Tab PO BID 30 Days Omeprazole 40 Mg Capsule.dr 1 Cap PO DAILY Meloxicam 7.5 Mg Tablet 1 Tab PO DAILY PRN 30 Days Ketoconazole 15 Gm Cream..g. 1 Katharina TP BID Zetia (Ezetimibe) 10 Mg Tablet 1 Tab PO DAILY 30 Days Jakafi (Ruxolitinib Phosphate) 10 Mg Tablet 1 Tab PO BID 30 Days Atorvastatin Calcium 40 Mg Tablet 80 Mg PO DAILY Ventolin Hfa Inhaler (Albuterol Sulfate) 18 Gm Hfa.aer.ad 18 Gm IH Symbicort 160-4.5 Mcg Inhaler (Budesonide/Formoterol Fumarate) 10.2 Gm Hfa. aer.ad 10.2 Gm IH BID Oxybutynin Chloride 5 Mg Tablet 2.5 Mg PO PRN DAILY Nitrostat (Nitroglycerin) 0.4 Mg Tab.subl 0.4 Mg SL Gabapentin 600 Mg Tablet 600 Mg PO BID Cyclobenzaprine Hcl 10 Mg Tablet 10 Mg PO Aspirin 81 Mg Tab.chew 81 Mg PO DAILY Allergies Allergies: Coded Allergies: JU Inhibitors (Verified Allergy, Severe, ANAPHYLAXIS, 09/13/16) Iodine and Iodide Containing Produc (Verified Allergy, Severe, PT STATES CPR FOLLOWING [facility]INE [facility]JECTION [facility], 12/24/18) levofloxacin (Verified Allergy, Severe, ANAPHYLAXIS, 09/13/16) Sulfa (Sulfonamide Antibiotics) (Verified Allergy, Intermediate, RASH, 09/13/16) celecoxib (Verified Allergy, Intermediate, ANAPHYLAXIS, 10/16/19) digoxin (Verified Allergy, Intermediate, 01/31/17) doxycycline (Verified Allergy, Intermediate, RASH, 09/13/16) hydrochlorothiazide (Verified Allergy, Intermediate, 01/31/17) hydrocodone (Verified Allergy, Intermediate, 01/31/17) lisinopril (Verified Allergy, Intermediate, 01/31/17) nortriptyline (Verified Allergy, Intermediate, STOMACH UPSET, 12/24/18) oxycodone (Verified Allergy, Intermediate, ITCHING ONLY WHEN TAKING HIGH DOSES, 10/16/19) pentazocine (Verified Allergy, Intermediate, RASH, 09/13/16) Uncoded Allergies: IV Contrast (Allergy, Severe, 10/16/19) Patient states it stops her heart ROS Respiratory: YES: Cough, Pleuritic Pain Physical Exam General: Alert, Oriented X3, Cooperative, mild distress HEENT: Atraumatic Lungs: Normal air movement Abdomen: Soft, No tenderness Extremities: No clubbing, No cyanosis Skin: No rashes, No breakdown Neuro: Normal speech, Sensation intact Psych/Mental Status: Mental status NL, Mood NL Vitals VITALS Vital Signs Date Time Temp Pulse Resp B/P (MAP) Pulse Ox O2 Delivery O2 Flow Rate FiO2 10/17/19 11:44 98 2.0 10/17/19 10:54 73 98/57 10/17/19 07:00 22 10/17/19 06:00 Nasal Cannula 10/17/19 04:00 98.1 98.1 Labs Labs Laboratory Tests Test 10/16/19 20:10 10/17/19 03:30 White Blood Count 7.6 x10^3/uL (4.0-11.0) 6.6 x10^3/uL (4.0-11.0) Red Blood Count 3.97 x10^6/uL (3.50-5.40) 3.80 x10^6/uL (3.50-5.40) Hemoglobin 11.4 g/dL (12.0-15.5) 11.0 g/dL (12.0-15.5) Hematocrit 35.4 % (36.0-47.0) 33.8 % (36.0-47.0) Mean Corpuscular Volume 89 fL (79-100) 89 fL (79-100) Mean Corpuscular Hemoglobin 29 pg (25-35) 29 pg (25-35) Mean Corpuscular Hemoglobin Concent 32 g/dL (31-37) 33 g/dL (31-37) Red Cell Distribution Width 18.7 % (11.5-14.5) 18.8 % (11.5-14.5) Platelet Count 569 x10^3/uL (140-400) 501 x10^3/uL (140-400) Neutrophils (%) (Auto) 80 % (31-73) 76 % (31-73) Lymphocytes (%) (Auto) 9 % (24-48) 11 % (24-48) Monocytes (%) (Auto) 9 % (0-9) 12 % (0-9) Eosinophils (%) (Auto) 1 % (0-3) 1 % (0-3) Basophils (%) (Auto) 0 % (0-3) 1 % (0-3) Neutrophils # (Auto) 6.1 x10^3/uL (1.8-7.7) 5.0 x10^3/uL (1.8-7.7) Lymphocytes # (Auto) 0.7 x10^3/uL (1.0-4.8) 0.7 x10^3/uL (1.0-4.8) Monocytes # (Auto) 0.7 x10^3/uL (0.0-1.1) 0.8 x10^3/uL (0.0-1.1) Eosinophils # (Auto) 0.1 x10^3/uL (0.0-0.7) 0.1 x10^3/uL (0.0-0.7) Basophils # (Auto) 0.0 x10^3/uL (0.0-0.2) 0.0 x10^3/uL (0.0-0.2) Prothrombin Time 13.5 SEC (11.7-14.0) Prothromb Time International Ratio 1.1 (0.8-1.1) Sodium Level 139 mmol/L (136-145) 141 mmol/L (136-145) Potassium Level 4.4 mmol/L (3.5-5.1) 3.9 mmol/L (3.5-5.1) Chloride Level 104 mmol/L (98-107) 104 mmol/L (98-107) Carbon Dioxide Level 32 mmol/L (21-32) 29 mmol/L (21-32) Anion Gap 3 (6-14) 8 (6-14) Blood Urea Nitrogen 8 mg/dL (7-20) 6 mg/dL (7-20) Creatinine 0.9 mg/dL (0.6-1.0) 0.9 mg/dL (0.6-1.0) Estimated GFR (Cockcroft-Gault) 75.8 75.8 BUN/Creatinine Ratio 9 (6-20) Glucose Level 101 mg/dL (70-99) 92 mg/dL (70-99) Calcium Level 9.3 mg/dL (8.5-10.1) 8.9 mg/dL (8.5-10.1) Total Bilirubin 0.4 mg/dL (0.2-1.0) Aspartate Amino Transf (AST/SGOT) 31 U/L (15-37) Alanine Aminotransferase (ALT/SGPT) 24 U/L (14-59) Alkaline Phosphatase 102 U/L (46-116) Troponin I Quantitative 0.027 ng/mL (0.000-0.055) SN-Igq-R-Type Natriuretic Peptide 489 pg/mL (0-124) Total Protein 8.0 g/dL (6.4-8.2) Albumin 3.7 g/dL (3.4-5.0) Albumin/Globulin Ratio 0.9 (1.0-1.7) Laboratory Tests Test 10/16/19 20:10 10/17/19 03:30 White Blood Count 7.6 x10^3/uL (4.0-11.0) 6.6 x10^3/uL (4.0-11.0) Red Blood Count 3.97 x10^6/uL (3.50-5.40) 3.80 x10^6/uL (3.50-5.40) Hemoglobin 11.4 g/dL (12.0-15.5) 11.0 g/dL (12.0-15.5) Hematocrit 35.4 % (36.0-47.0) 33.8 % (36.0-47.0) Mean Corpuscular Volume 89 fL (79-100) 89 fL (79-100) Mean Corpuscular Hemoglobin 29 pg (25-35) 29 pg (25-35) Mean Corpuscular Hemoglobin Concent 32 g/dL (31-37) 33 g/dL (31-37) Red Cell Distribution Width 18.7 % (11.5-14.5) 18.8 % (11.5-14.5) Platelet Count 569 x10^3/uL (140-400) 501 x10^3/uL (140-400) Neutrophils (%) (Auto) 80 % (31-73) 76 % (31-73) Lymphocytes (%) (Auto) 9 % (24-48) 11 % (24-48) Monocytes (%) (Auto) 9 % (0-9) 12 % (0-9) Eosinophils (%) (Auto) 1 % (0-3) 1 % (0-3) Basophils (%) (Auto) 0 % (0-3) 1 % (0-3) Neutrophils # (Auto) 6.1 x10^3/uL (1.8-7.7) 5.0 x10^3/uL (1.8-7.7) Lymphocytes # (Auto) 0.7 x10^3/uL (1.0-4.8) 0.7 x10^3/uL (1.0-4.8) Monocytes # (Auto) 0.7 x10^3/uL (0.0-1.1) 0.8 x10^3/uL (0.0-1.1) Eosinophils # (Auto) 0.1 x10^3/uL (0.0-0.7) 0.1 x10^3/uL (0.0-0.7) Basophils # (Auto) 0.0 x10^3/uL (0.0-0.2) 0.0 x10^3/uL (0.0-0.2) Prothrombin Time 13.5 SEC (11.7-14.0) Prothromb Time International Ratio 1.1 (0.8-1.1) Sodium Level 139 mmol/L (136-145) 141 mmol/L (136-145) Potassium Level 4.4 mmol/L (3.5-5.1) 3.9 mmol/L (3.5-5.1) Chloride Level 104 mmol/L (98-107) 104 mmol/L (98-107) Carbon Dioxide Level 32 mmol/L (21-32) 29 mmol/L (21-32) Anion Gap 3 (6-14) 8 (6-14) Blood Urea Nitrogen 8 mg/dL (7-20) 6 mg/dL (7-20) Creatinine 0.9 mg/dL (0.6-1.0) 0.9 mg/dL (0.6-1.0) Estimated GFR (Cockcroft-Gault) 75.8 75.8 BUN/Creatinine Ratio 9 (6-20) Glucose Level 101 mg/dL (70-99) 92 mg/dL (70-99) Calcium Level 9.3 mg/dL (8.5-10.1) 8.9 mg/dL (8.5-10.1) Total Bilirubin 0.4 mg/dL (0.2-1.0) Aspartate Amino Transf (AST/SGOT) 31 U/L (15-37) Alanine Aminotransferase (ALT/SGPT) 24 U/L (14-59) Alkaline Phosphatase 102 U/L (46-116) Troponin I Quantitative 0.027 ng/mL (0.000-0.055) HR-Fzn-Z-Type Natriuretic Peptide 489 pg/mL (0-124) Total Protein 8.0 g/dL (6.4-8.2) Albumin 3.7 g/dL (3.4-5.0) Albumin/Globulin Ratio 0.9 (1.0-1.7) Images Images CT c/w rib fx and possible small splenic hematoma Assessment/Plan Assessment/Plan rib fractures, splenic hematoma agree with ICU for pulm toilet and careful observation for her lung disease and rib fractures. will monitor for splenic injury, but hgb stable will check CT head, given possible head injury Thanks for consult! SCOTT WINTERS MD Oct 17, 2019 13:32
[2019-10-17] MEDS: SUCRALFATE 1 GM TABLET. PO SCH ×2 (14:45→21:12)
[2019-10-17] MEDS: RUXOLITINIB PHOSPHATE 10 MG PO SCH (17:00)
--- NOTE | 2019-10-17 20:10 | NUR ---
7a Pain meds prn to maintain level 3/10. IS attempted w failure. Very difficult return demonstration /reinforcement needed .Able to dislodge and expectorate mod amount tenacious phlegm.Tolerates advanced diet. Dr Call to leave on unit one more day ,close monitoring. H/H stable,VSS. Respirs good w exception of pain related to cough. [place] peralta w 200 ml output x12 H.Cont POC
[2019-10-17] MEDS: PATCH REMOVAL. MC SCH (21:00)
[2019-10-17] MEDS: ATORVASTATIN CALCIUM 40 MG TABLET. PO SCH (21:12)
[2019-10-17 22:35] LABS: BILIRUBIN,URINE NEGATIVE (NEG); CLARITY,URINE CLEAR; COLOR,URINE YELLOW; NITRITE,URINE NEGATIVE (NEG); PH,URINE 5.5; PROTEIN,URINE NEGATIVE (NEG-TRACE); UROBILINOGEN,URINE 0.2 mg/dL (0.2 mg/dL)
[2019-10-17 22:40] LABS: BACTERIA,URINE FEW /HPF (0-FEW); RBC,URINE OCC /HPF (0-2); SQUAMOUS EPITHELIAL CELL,UR FEW /LPF; WBC,URINE 20-40 /HPF (0-4)
[2019-10-18] VITALS (14 sets, daily range): BP systolic 82–137; BP diastolic 48–69
[2019-10-18] MEDS: oxyCODONE/APAP 5/325 1 TAB TABLET PO PRN ×3 (04:37→19:17)
[2019-10-18 05:01] LABS: BASO % 0 % (0-3); EOS # 0.1 x10^3/uL (0.0-0.7); EOS % 1 % (0-3); HEMATOCRIT 32.4 % (36.0-47.0); HEMOGLOBIN 10.8 g/dL (12.0-15.5); LYMPH # 0.6 x10^3/uL (1.0-4.8); LYMPH % 11 % (24-48); MEAN CORPUSCULAR HEMOGLOBIN 30 pg (25-35); MEAN CORPUSCULAR HGB CONC 33 g/dL (31-37); MEAN CORPUSCULAR VOLUME 89 fL (79-100); MONO # 0.7 x10^3/uL (0.0-1.1); MONO % 13 % (0-9); NEUT # 4.2 x10^3/uL (1.8-7.7); NEUT % 75 % (31-73); PLATELET COUNT 464 x10^3/uL (140-400); RED BLOOD COUNT 3.65 x10^6/uL (3.50-5.40); RED CELL DISTRIBUTION WIDTH 18.4 % (11.5-14.5); WHITE BLOOD COUNT 5.6 x10^3/uL (4.0-11.0)
[2019-10-18 05:24] LABS: CALCIUM 8.4 mg/dL (8.5-10.1); CREATININE 0.8 mg/dL (0.6-1.0); GFR 86.8; POTASSIUM 4.3 mmol/L (3.5-5.1)
[2019-10-18] MEDS: RUXOLITINIB PHOSPHATE 10 MG PO SCH (06:30)
[2019-10-18] MEDS: IPRATRPIUM/ALBUTEROL 0.5/2.5MG 3 ML NEBU. NEB SCH ×4 (08:58→20:05)
[2019-10-18] MEDS: BUDESONIDE 0.5 MG/2 ML NEBU. NEB SCH ×2 (08:59→20:05)
[2019-10-18] MEDS: KETOCONAZOLE 2% TOPICAL CREAM 15GM TUBE. TP SCH ×2 (09:11→22:19)
[2019-10-18] MEDS: CYCLOBENZAPRINE 10 MG TABLET. PO SCH ×3 (09:11→22:16)
[2019-10-18] MEDS: SUCRALFATE 1 GM TABLET. PO SCH ×2 (09:11→22:19)
[2019-10-18] MEDS: PANTOPRAZOLE 40 MG TABLET.DR. PO SCH (09:11)
[2019-10-18] MEDS: SPIRONOLACTONE 25 MG TABLET PO SCH (09:11)
[2019-10-18] MEDS: EZETIMIBE 10 MG TABLET. PO SCH (09:11)
[2019-10-18] MEDS: GABAPENTIN 300 MG CAPSULE. PO SCH ×2 (09:12→22:16)
[2019-10-18] MEDS: RANOLAZINE 500 MG TAB.ER.12H PO SCH ×2 (09:12→22:18)
--- NOTE | 2019-10-18 09:12 | PDOC ---
RAHUL ASTUDILLO [employer] 10/18/19 0912: SURGICAL PROGRESS NOTE Subjective more pain since shes now up and ambulating no n/v Vital Signs Vital Signs Date Time Temp Pulse Resp B/P (MAP) Pulse Ox O2 Delivery O2 Flow Rate FiO2 10/18/19 08:59 100 Nasal Cannula 2.0 10/18/19 07:00 67 15 116/58 (77) 10/18/19 04:00 99.0 99.0 I&O Intake and Output 10/18/19 07:00 Intake Total 2925 ml Output Total 3660 ml Balance -735 ml Intake Oral 1925 ml IV Total 1000 ml Output Urine Total 3660 ml General: Alert, Oriented X3, Cooperative Abdomen: Soft, Other (ttp upper abd) Labs Laboratory Tests Test 10/16/19 20:10 10/17/19 03:30 10/17/19 22:30 10/18/19 04:00 White Blood Count 7.6 x10^3/uL (4.0-11.0) 6.6 x10^3/uL (4.0-11.0) Red Blood Count 3.97 x10^6/uL (3.50-5.40) 3.80 x10^6/uL (3.50-5.40) Hemoglobin 11.4 g/dL (12.0-15.5) 11.0 g/dL (12.0-15.5) Hematocrit 35.4 % (36.0-47.0) 33.8 % (36.0-47.0) Mean Corpuscular Volume 89 fL (79-100) 89 fL (79-100) Mean Corpuscular Hemoglobin 29 pg (25-35) 29 pg (25-35) Mean Corpuscular Hemoglobin Concent 32 g/dL (31-37) 33 g/dL (31-37) Red Cell Distribution Width 18.7 % (11.5-14.5) 18.8 % (11.5-14.5) Platelet Count 569 x10^3/uL (140-400) 501 x10^3/uL (140-400) Neutrophils (%) (Auto) 80 % (31-73) 76 % (31-73) Lymphocytes (%) (Auto) 9 % (24-48) 11 % (24-48) Monocytes (%) (Auto) 9 % (0-9) 12 % (0-9) Eosinophils (%) (Auto) 1 % (0-3) 1 % (0-3) Basophils (%) (Auto) 0 % (0-3) 1 % (0-3) Neutrophils # (Auto) 6.1 x10^3/uL (1.8-7.7) 5.0 x10^3/uL (1.8-7.7) Lymphocytes # (Auto) 0.7 x10^3/uL (1.0-4.8) 0.7 x10^3/uL (1.0-4.8) Monocytes # (Auto) 0.7 x10^3/uL (0.0-1.1) 0.8 x10^3/uL (0.0-1.1) Eosinophils # (Auto) 0.1 x10^3/uL (0.0-0.7) 0.1 x10^3/uL (0.0-0.7) Basophils # (Auto) 0.0 x10^3/uL (0.0-0.2) 0.0 x10^3/uL (0.0-0.2) Prothrombin Time 13.5 SEC (11.7-14.0) Prothromb Time International Ratio 1.1 (0.8-1.1) Sodium Level 139 mmol/L (136-145) 141 mmol/L (136-145) 142 mmol/L (136-145) Potassium Level 4.4 mmol/L (3.5-5.1) 3.9 mmol/L (3.5-5.1) 4.3 mmol/L (3.5-5.1) Chloride Level 104 mmol/L (98-107) 104 mmol/L (98-107) 105 mmol/L (98-107) Carbon Dioxide Level 32 mmol/L (21-32) 29 mmol/L (21-32) 30 mmol/L (21-32) Anion Gap 3 (6-14) 8 (6-14) 7 (6-14) Blood Urea Nitrogen 8 mg/dL (7-20) 6 mg/dL (7-20) 5 mg/dL (7-20) Creatinine 0.9 mg/dL (0.6-1.0) 0.9 mg/dL (0.6-1.0) 0.8 mg/dL (0.6-1.0) Estimated GFR (Cockcroft-Gault) 75.8 75.8 86.8 BUN/Creatinine Ratio 9 (6-20) Glucose Level 101 mg/dL (70-99) 92 mg/dL (70-99) 95 mg/dL (70-99) Calcium Level 9.3 mg/dL (8.5-10.1) 8.9 mg/dL (8.5-10.1) 8.4 mg/dL (8.5-10.1) Total Bilirubin 0.4 mg/dL (0.2-1.0) Aspartate Amino Transf (AST/SGOT) 31 U/L (15-37) Alanine Aminotransferase (ALT/SGPT) 24 U/L (14-59) Alkaline Phosphatase 102 U/L (46-116) Troponin I Quantitative 0.027 ng/mL (0.000-0.055) IZ-Quc-O-Type Natriuretic Peptide 489 pg/mL (0-124) Total Protein 8.0 g/dL (6.4-8.2) Albumin 3.7 g/dL (3.4-5.0) Albumin/Globulin Ratio 0.9 (1.0-1.7) Urine Collection Type Unknown Urine Color Yellow Urine Clarity Clear Urine pH 5.5 Urine Specific [place] <=1.005 Urine Protein Negative mg/dL (NEG-TRACE) Urine Glucose (UA) Negative mg/dL (NEG) Urine Ketones (Stick) Negative mg/dL (NEG) Urine Blood Moderate (NEG) Urine Nitrite Negative (NEG) Urine Bilirubin Negative (NEG) Urine Urobilinogen Dipstick 0.2 mg/dL (0.2 mg/dL) Urine Leukocyte Esterase Moderate (NEG) Urine RBC Occ /HPF (0-2) Urine WBC 20-40 /HPF (0-4) Urine Squamous Epithelial Cells Few /LPF Urine Bacteria Few /HPF (0-FEW) Urine Mucus Slight /LPF Test 10/18/19 04:45 White Blood Count 5.6 x10^3/uL (4.0-11.0) Red Blood Count 3.65 x10^6/uL (3.50-5.40) Hemoglobin 10.8 g/dL (12.0-15.5) Hematocrit 32.4 % (36.0-47.0) Mean Corpuscular Volume 89 fL (79-100) Mean Corpuscular Hemoglobin 30 pg (25-35) Mean Corpuscular Hemoglobin Concent 33 g/dL (31-37) Red Cell Distribution Width 18.4 % (11.5-14.5) Platelet Count 464 x10^3/uL (140-400) Neutrophils (%) (Auto) 75 % (31-73) Lymphocytes (%) (Auto) 11 % (24-48) Monocytes (%) (Auto) 13 % (0-9) Eosinophils (%) (Auto) 1 % (0-3) Basophils (%) (Auto) 0 % (0-3) Neutrophils # (Auto) 4.2 x10^3/uL (1.8-7.7) Lymphocytes # (Auto) 0.6 x10^3/uL (1.0-4.8) Monocytes # (Auto) 0.7 x10^3/uL (0.0-1.1) Eosinophils # (Auto) 0.1 x10^3/uL (0.0-0.7) Basophils # (Auto) 0.0 x10^3/uL (0.0-0.2) Laboratory Tests Test 10/17/19 22:30 10/18/19 04:00 10/18/19 04:45 Urine Collection Type Unknown Urine Color Yellow Urine Clarity Clear Urine pH 5.5 Urine Specific [place] <=1.005 Urine Protein Negative mg/dL (NEG-TRACE) Urine Glucose (UA) Negative mg/dL (NEG) Urine Ketones (Stick) Negative mg/dL (NEG) Urine Blood Moderate (NEG) Urine Nitrite Negative (NEG) Urine Bilirubin Negative (NEG) Urine Urobilinogen Dipstick 0.2 mg/dL (0.2 mg/dL) Urine Leukocyte Esterase Moderate (NEG) Urine RBC Occ /HPF (0-2) Urine WBC 20-40 /HPF (0-4) Urine Squamous Epithelial Cells Few /LPF Urine Bacteria Few /HPF (0-FEW) Urine Mucus Slight /LPF Sodium Level 142 mmol/L (136-145) Potassium Level 4.3 mmol/L (3.5-5.1) Chloride Level 105 mmol/L (98-107) Carbon Dioxide Level 30 mmol/L (21-32) Anion Gap 7 (6-14) Blood Urea Nitrogen 5 mg/dL (7-20) Creatinine 0.8 mg/dL (0.6-1.0) Estimated GFR (Cockcroft-Gault) 86.8 Glucose Level 95 mg/dL (70-99) Calcium Level 8.4 mg/dL (8.5-10.1) White Blood Count 5.6 x10^3/uL (4.0-11.0) Red Blood Count 3.65 x10^6/uL (3.50-5.40) Hemoglobin 10.8 g/dL (12.0-15.5) Hematocrit 32.4 % (36.0-47.0) Mean Corpuscular Volume 89 fL (79-100) Mean Corpuscular Hemoglobin 30 pg (25-35) Mean Corpuscular Hemoglobin Concent 33 g/dL (31-37) Red Cell Distribution Width 18.4 % (11.5-14.5) Platelet Count 464 x10^3/uL (140-400) Neutrophils (%) (Auto) 75 % (31-73) Lymphocytes (%) (Auto) 11 % (24-48) Monocytes (%) (Auto) 13 % (0-9) Eosinophils (%) (Auto) 1 % (0-3) Basophils (%) (Auto) 0 % (0-3) Neutrophils # (Auto) 4.2 x10^3/uL (1.8-7.7) Lymphocytes # (Auto) 0.6 x10^3/uL (1.0-4.8) Monocytes # (Auto) 0.7 x10^3/uL (0.0-1.1) Eosinophils # (Auto) 0.1 x10^3/uL (0.0-0.7) Basophils # (Auto) 0.0 x10^3/uL (0.0-0.2) Problem List Problems Medical Problems: (1) Metatarsal bone fracture Status: Acute Assessment/Plan hgb stable Ct head pending SCOTT WINTERS MD 10/18/19 1433: SURGICAL PROGRESS NOTE Assessment/Plan Pt seen and examined. Agree with Ms. Astudillo's note Pt with c/o chest pain CT head without new injury abd soft cont supportive care RAHUL ASTUDILLO [employer] Oct 18, 2019 09:12 SCOTT WINTERS MD Oct 18, 2019 14:33
--- NOTE | 2019-10-18 09:24 | PDOC ---
PULMONARY PROGRESS NOTES Vitals Vital Signs Date Time Temp Pulse Resp B/P (MAP) Pulse Ox O2 Delivery O2 Flow Rate FiO2 10/18/19 09:12 74 114/62 10/18/19 08:59 100 Nasal Cannula 2.0 10/18/19 07:00 15 10/18/19 04:00 99.0 99.0 General: Alert, Oriented X4 Lungs: Clear Cardiovascular: S1, S2 Abdomen: Soft, Non-tender Extremities: No Edema Labs Laboratory Tests Test 10/16/19 20:10 10/17/19 03:30 10/17/19 22:30 10/18/19 04:00 White Blood Count 7.6 x10^3/uL (4.0-11.0) 6.6 x10^3/uL (4.0-11.0) Red Blood Count 3.97 x10^6/uL (3.50-5.40) 3.80 x10^6/uL (3.50-5.40) Hemoglobin 11.4 g/dL (12.0-15.5) 11.0 g/dL (12.0-15.5) Hematocrit 35.4 % (36.0-47.0) 33.8 % (36.0-47.0) Mean Corpuscular Volume 89 fL (79-100) 89 fL (79-100) Mean Corpuscular Hemoglobin 29 pg (25-35) 29 pg (25-35) Mean Corpuscular Hemoglobin Concent 32 g/dL (31-37) 33 g/dL (31-37) Red Cell Distribution Width 18.7 % (11.5-14.5) 18.8 % (11.5-14.5) Platelet Count 569 x10^3/uL (140-400) 501 x10^3/uL (140-400) Neutrophils (%) (Auto) 80 % (31-73) 76 % (31-73) Lymphocytes (%) (Auto) 9 % (24-48) 11 % (24-48) Monocytes (%) (Auto) 9 % (0-9) 12 % (0-9) Eosinophils (%) (Auto) 1 % (0-3) 1 % (0-3) Basophils (%) (Auto) 0 % (0-3) 1 % (0-3) Neutrophils # (Auto) 6.1 x10^3/uL (1.8-7.7) 5.0 x10^3/uL (1.8-7.7) Lymphocytes # (Auto) 0.7 x10^3/uL (1.0-4.8) 0.7 x10^3/uL (1.0-4.8) Monocytes # (Auto) 0.7 x10^3/uL (0.0-1.1) 0.8 x10^3/uL (0.0-1.1) Eosinophils # (Auto) 0.1 x10^3/uL (0.0-0.7) 0.1 x10^3/uL (0.0-0.7) Basophils # (Auto) 0.0 x10^3/uL (0.0-0.2) 0.0 x10^3/uL (0.0-0.2) Prothrombin Time 13.5 SEC (11.7-14.0) Prothromb Time International Ratio 1.1 (0.8-1.1) Sodium Level 139 mmol/L (136-145) 141 mmol/L (136-145) 142 mmol/L (136-145) Potassium Level 4.4 mmol/L (3.5-5.1) 3.9 mmol/L (3.5-5.1) 4.3 mmol/L (3.5-5.1) Chloride Level 104 mmol/L (98-107) 104 mmol/L (98-107) 105 mmol/L (98-107) Carbon Dioxide Level 32 mmol/L (21-32) 29 mmol/L (21-32) 30 mmol/L (21-32) Anion Gap 3 (6-14) 8 (6-14) 7 (6-14) Blood Urea Nitrogen 8 mg/dL (7-20) 6 mg/dL (7-20) 5 mg/dL (7-20) Creatinine 0.9 mg/dL (0.6-1.0) 0.9 mg/dL (0.6-1.0) 0.8 mg/dL (0.6-1.0) Estimated GFR (Cockcroft-Gault) 75.8 75.8 86.8 BUN/Creatinine Ratio 9 (6-20) Glucose Level 101 mg/dL (70-99) 92 mg/dL (70-99) 95 mg/dL (70-99) Calcium Level 9.3 mg/dL (8.5-10.1) 8.9 mg/dL (8.5-10.1) 8.4 mg/dL (8.5-10.1) Total Bilirubin 0.4 mg/dL (0.2-1.0) Aspartate Amino Transf (AST/SGOT) 31 U/L (15-37) Alanine Aminotransferase (ALT/SGPT) 24 U/L (14-59) Alkaline Phosphatase 102 U/L (46-116) Troponin I Quantitative 0.027 ng/mL (0.000-0.055) OT-Qrm-[id number]-Type Natriuretic Peptide 489 pg/mL (0-124) Total Protein 8.0 g/dL (6.4-8.2) Albumin 3.7 g/dL (3.4-5.0) Albumin/Globulin Ratio 0.9 (1.0-1.7) Urine Collection Type Unknown Urine Color Yellow Urine Clarity Clear Urine pH 5.5 Urine Specific [place] <=1.005 Urine Protein Negative mg/dL (NEG-TRACE) Urine Glucose (UA) Negative mg/dL (NEG) Urine Ketones (Stick) Negative mg/dL (NEG) Urine Blood Moderate (NEG) Urine Nitrite Negative (NEG) Urine Bilirubin Negative (NEG) Urine Urobilinogen Dipstick 0.2 mg/dL (0.2 mg/dL) Urine Leukocyte Esterase Moderate (NEG) Urine RBC Occ /HPF (0-2) Urine WBC 20-40 /HPF (0-4) Urine Squamous Epithelial Cells Few /LPF Urine Bacteria Few /HPF (0-FEW) Urine Mucus Slight /LPF Test 10/18/19 04:45 White Blood Count 5.6 x10^3/uL (4.0-11.0) Red Blood Count 3.65 x10^6/uL (3.50-5.40) Hemoglobin 10.8 g/dL (12.0-15.5) Hematocrit 32.4 % (36.0-47.0) Mean Corpuscular Volume 89 fL (79-100) Mean Corpuscular Hemoglobin 30 pg (25-35) Mean Corpuscular Hemoglobin Concent 33 g/dL (31-37) Red Cell Distribution Width 18.4 % (11.5-14.5) Platelet Count 464 x10^3/uL (140-400) Neutrophils (%) (Auto) 75 % (31-73) Lymphocytes (%) (Auto) 11 % (24-48) Monocytes (%) (Auto) 13 % (0-9) Eosinophils (%) (Auto) 1 % (0-3) Basophils (%) (Auto) 0 % (0-3) Neutrophils # (Auto) 4.2 x10^3/uL (1.8-7.7) Lymphocytes # (Auto) 0.6 x10^3/uL (1.0-4.8) Monocytes # (Auto) 0.7 x10^3/uL (0.0-1.1) Eosinophils # (Auto) 0.1 x10^3/uL (0.0-0.7) Basophils # (Auto) 0.0 x10^3/uL (0.0-0.2) Laboratory Tests Test 10/17/19 22:30 10/18/19 04:00 10/18/19 04:45 Urine Collection Type Unknown Urine Color Yellow Urine Clarity Clear Urine pH 5.5 Urine Specific [place] <=1.005 Urine Protein Negative mg/dL (NEG-TRACE) Urine Glucose (UA) Negative mg/dL (NEG) Urine Ketones (Stick) Negative mg/dL (NEG) Urine Blood Moderate (NEG) Urine Nitrite Negative (NEG) Urine Bilirubin Negative (NEG) Urine Urobilinogen Dipstick 0.2 mg/dL (0.2 mg/dL) Urine Leukocyte Esterase Moderate (NEG) Urine RBC Occ /HPF (0-2) Urine WBC 20-40 /HPF (0-4) Urine Squamous Epithelial Cells Few /LPF Urine Bacteria Few /HPF (0-FEW) Urine Mucus Slight /LPF Sodium Level 142 mmol/L (136-145) Potassium Level 4.3 mmol/L (3.5-5.1) Chloride Level 105 mmol/L (98-107) Carbon Dioxide Level 30 mmol/L (21-32) Anion Gap 7 (6-14) Blood Urea Nitrogen 5 mg/dL (7-20) Creatinine 0.8 mg/dL (0.6-1.0) Estimated GFR (Cockcroft-Gault) 86.8 Glucose Level 95 mg/dL (70-99) Calcium Level 8.4 mg/dL (8.5-10.1) White Blood Count 5.6 x10^3/uL (4.0-11.0) Red Blood Count 3.65 x10^6/uL (3.50-5.40) Hemoglobin 10.8 g/dL (12.0-15.5) Hematocrit 32.4 % (36.0-47.0) Mean Corpuscular Volume 89 fL (79-100) Mean Corpuscular Hemoglobin 30 pg (25-35) Mean Corpuscular Hemoglobin Concent 33 g/dL (31-37) Red Cell Distribution Width 18.4 % (11.5-14.5) Platelet Count 464 x10^3/uL (140-400) Neutrophils (%) (Auto) 75 % (31-73) Lymphocytes (%) (Auto) 11 % (24-48) Monocytes (%) (Auto) 13 % (0-9) Eosinophils (%) (Auto) 1 % (0-3) Basophils (%) (Auto) 0 % (0-3) Neutrophils # (Auto) 4.2 x10^3/uL (1.8-7.7) Lymphocytes # (Auto) 0.6 x10^3/uL (1.0-4.8) Monocytes # (Auto) 0.7 x10^3/uL (0.0-1.1) Eosinophils # (Auto) 0.1 x10^3/uL (0.0-0.7) Basophils # (Auto) 0.0 x10^3/uL (0.0-0.2) Medications Active Scripts Medications Dose Route/Sig Max Daily Dose Days Date Category Sucralfate 1 Gm Tablet 1 Gm PO BID 10/16/19 Reported Ventolin Hfa Inhaler (Albuterol Sulfate) 18 Gm Hfa.aer.ad 2 Puff INH Q4HRS PRN 10/16/19 Reported Spironolactone 25 Mg Tablet 0.5 Tab PO DAILY 10/16/19 Reported Ranexa (Ranolazine) 1,000 Mg Tab.er.12h 1 Tab PO BID 30 10/16/19 Reported Omeprazole 40 Mg Capsule.dr 1 Cap PO DAILY 10/16/19 Reported Meloxicam 7.5 Mg Tablet 1 Tab PO DAILY PRN 30 10/16/19 Reported Ketoconazole 15 Gm Cream..g. 1 Katharina TP BID 10/16/19 Reported Zetia (Ezetimibe) 10 Mg Tablet 1 Tab PO DAILY 30 10/16/19 Reported Jakafi (Ruxolitinib Phosphate) 10 Mg Tablet 1 Tab PO BID 30 10/16/19 Reported Atorvastatin Calcium 40 Mg Tablet 80 Mg PO DAILY 10/16/19 Reported Zofran Odt (Ondansetron) 4 Mg Tab.rapdis 1 Tab SL Q6HRS PRN 01/31/17 Rx Percocet 5-325 Mg Tablet (Oxycodone/Acetaminophen) 1 Each Tablet 1 Tab PO Q6-8HRS PRN 01/31/17 Rx Ventolin Hfa Inhaler (Albuterol Sulfate) 18 Gm Hfa.aer.ad 18 Gm IH 03/03/14 Reported Symbicort 160-4.5 Mcg Inhaler (Budesonide/Formoterol Fumarate) 10.2 Gm Hfa.aer.ad 10.2 Gm IH BID 03/03/14 Reported Oxybutynin Chloride 5 Mg Tablet 2.5 Mg PO PRN DAILY 03/03/14 Reported Nitrostat (Nitroglycerin) 0.4 Mg Tab.subl 0.4 Mg SL 03/03/14 Reported Gabapentin 600 Mg Tablet 600 Mg PO BID 03/03/14 Reported Cyclobenzaprine Hcl 10 Mg Tablet 10 Mg PO 03/03/14 Reported Aspirin 81 Mg Tab.chew 81 Mg PO DAILY 03/03/14 Reported Impression . IMPRESSION: 1. Acute on chronic respiratory failure secondary to rib fracture, mild acute exacerbation of chronic obstructive pulmonary disease. She has tiny left pleural effusion. We need to monitor her for hemothorax. 2. Abnormal CT of the chest. 3. Chronic obstructive pulmonary disease with mild acute exacerbation. 4. Obstructive sleep apnea-hypopnea syndrome. 5. History of congestive heart failure. 6. Status post fall with rib fractures. 7. Spleen laceration. 8. Ex-smoker. Plan . 1. Titrate FiO2 to keep O2 saturation 92%. 2. Start bronchodilator. 3. Start inhaled corticosteroid, she may require systemic steroid. 4. Start incentive spirometer. 5. Surgery is consulted for a splenic laceration. 6. Use CPAP during sleep, may use p.r.n. during the day if she develops increased shortness of breath. 7. Monitor in ICU until seen by Surgery. 8. CXR in am. The findings and recommendations were discussed with the patient. She understood and agreed to proceed with the plan. I have discussed the findings and recommendation with RN. JAYCE OLVERA MD Oct 18, 2019 09:24
[2019-10-18] MEDS ORDERED: LIDO1ADH4 TP (09:36)
[2019-10-18] MEDS ORDERED: OXYC1TAB15 PO (09:36)
[2019-10-18] MEDS ORDERED: CYCL10TA2 PO (09:36)
--- NOTE | 2019-10-18 10:23 | PDOC2 ---
CONSULT Date of Consult Date of Consult DATE: 10/18/19 TIME: 10:09 Reason for Consult Reason for Consult: Fall at home receiving fractured ribs and left 5th metatarsal shaft fracture. Referring Physician Referring Physician: Dr Koenig Identification/Chief Complaint Chief Complaint pain in left foot r/t 5th MT fracture Source Source: Chart review, Patient History of Present Illness Reason for Visit: Fall at home with fractures including left 5th MT fracture. Past Medical History Cardiovascular: CAD, HTN, GA, Hyperlipidemia Pulmonary: Asthma, Bronchitis, COPD, Pneumonia Past Surgical History Past Surgical History: Other (left leg sx, thyroidectomy?) Family History Family History: Cancer, Heart Disease Social History Quit ALCOHOL: none Drugs: None Current Problem List Problem List Problems Medical Problems: (1) Metatarsal bone fracture Status: Acute Current Medications Current Medications Current Medications Fentanyl Citrate (Fentanyl 2ml Vial) 50 mcg 1X ONCE IVP Last administered on 10/16/19at 19:48; Start 10/16/19 at 19:00; Stop 10/16/19 at 19:01; Status DC Ondansetron HCl (Zofran) 4 mg 1X ONCE IVP Last administered on 10/16/19at 19:47; Start 10/16/19 at 19:00; Stop 10/16/19 at 19:01; Status DC Ondansetron HCl (Zofran) 4 mg PRN Q8HRS PRN IV NAUSEA/VOMITING; Start 10/16/19 at 21:45; Stop 10/17/19 at 21:44; Status DC Morphine Sulfate (Morphine Sulfate) 2 mg PRN Q2HR PRN IV PAIN Last administered on 10/17/19at 20:01; Start 10/16/19 at 21:45; Stop 10/17/19 at 21:44; Status DC Influenza Virus Vaccine Quadrival (Afluria Quad 2019-20 (3yr Up) Syringe) 0.5 ml ONCE ONCE VAX IM ; Start 10/17/19 at 09:00; Stop 10/17/19 at 09:01; Status DC EZETIMIBE (Zetia) 10 mg DAILY PO ; Start 10/17/19 at 09:00; Stop 10/16/19 at 23:35; Status DC Non-Formulary Medication (Gabapentin ) 600 mg BID PO ; Start 10/17/19 at 09:00; Stop 10/16/19 at 23:35; Status DC Lidocaine (Lidoderm) 1 patch PRN DAILY PRN TD PAIN Last administered on 10/17/19 11:02; Start 10/16/19 at 23:30 EZETIMIBE (Zetia) 10 mg DAILY PO Last administered on 10/18/19at 09:11; Start 10/16/19 at 23:30 Gabapentin (Neurontin) 600 mg BID PO Last administered on 10/18/19 09:12; Start 10/16/19 at 23:45 Oxycodone/ Acetaminophen (Percocet 5/325) 1 tab PRN Q6HRS PRN PO PAIN Last administered on 10/18/19 04:37; Start 10/16/19 at 23:45; Stop 10/18/19 at 09:33; Status DC Miscellaneous (Lidoderm Patch Removal) 1 ea QHS MC Last administered on 10/17/19 21:00; Start 10/17/19 at 21:00 Cyclobenzaprine HCl (Flexeril) 10 mg PRN Q6HRS PRN PO MUSCLE SPASMS Last administered on 10/17/19at 03:54; Start 10/17/19 at 03:45 Albuterol/ Ipratropium (Duoneb) 3 ml RTQID NEB Last administered on 10/18/19at 08:58; Start 10/17/19 at 08:00 Budesonide (Pulmicort) 0.5 mg RTBID NEB Last administered on 10/18/19at 08:59; Start 10/17/19 at 08:00 Temazepam (Restoril) 7.5 mg PRN QHS PRN PO INSOMNIA; Start 10/17/19 at 08:15 Ketorolac Tromethamine (Toradol 15mg Vial) 15 mg PRN Q6HRS PRN IVP PAIN; Start 10/17/19 at 08:15; Stop 10/22/19 at 08:14; Status UNV Sodium Chloride 1,000 ml @ 2,700 mls/hr Q23M IV ; Start 10/17/19 at 08:30; Stop 10/17/19 at 09:30; Status DC Atorvastatin Calcium (Lipitor) 80 mg QHS PO Last administered on 10/17/19at 21:12; Start 10/17/19 at 21:00 Cyclobenzaprine HCl (Flexeril) 10 mg TID PO Last administered on 10/18/19 09:11; Start 10/17/19 at 10:00 Ketoconazole (Nizoral 2% Topical) 1 katharina BID TP Last administered on 10/18/19at 09:11; Start 10/17/19 at 10:00 Ondansetron HCl (Zofran Odt) 4 mg PRN Q6HRS PRN PO NAUSEA; Start 10/17/19 at 09:00 Oxybutynin Chloride (Ditropan) 2.5 mg PRN DAILY PRN PO BLADDER Last adminis tered on 10/17/19at 10:53; Start 10/17/19 at 09:00 Spironolactone (Aldactone) 12.5 mg DAILY PO Last administered on 10/18/19 09:11; Start 10/17/19 at 10:00 Sucralfate (Carafate) 1 gm BID PO Last administered on 10/18/19at 09:11; Start 10/17/19 at 12:00 Albuterol Sulfate (Ventolin Neb Soln) 2.5 mg PRN Q6HRS PRN NEB SHORTNESS OF BREATH; Start 10/17/19 at 09:15 Non-Formulary Medication (Budesonide/ Formoterol Fumarate (Symbicort 160-4.5 Mcg Inhaler)) 10.2 gm BID IH ; Start 10/17/19 at 09:00; Status UNV Pantoprazole Sodium (Protonix) 40 mg DAILYAC PO Last administered on 10/18/19at 09:11; Start 10/17/19 at 10:00 Ranolazine (Ranexa) 1,000 mg BID PO Last administered on 10/18/19 09:12; Start 10/17/19 at 10:00 Non-Formulary Medication (Ruxolitinib Phosphate (Jakafi)) 1 tab DAILY07 PO Last administered on 10/18/19at 06:30; Start 10/17/19 at 17:00 Oxycodone/ Acetaminophen (Percocet 5/325) 1 tab PRN Q4HRS PRN PO PAIN; Start 10/18/19 at 09:45 Lidocaine (Lidoderm) 1 patch DAILY TD ; Start 10/18/19 at 09:45 Miscellaneous (Lidoderm Patch Removal) 1 ea QHS MC ; Start 10/18/19 at 21:00; Status UNV Active Scripts Active Medi-Patch With Lidocaine (Lidocain/Me-Salicyl/Caps/Menth) 1 Each Adh..patch 1 Each TP DAILY 14 Days Percocet 5-325 Mg Tablet (Oxycodone/Acetaminophen) 1 Each Tablet 1 Tab PO Q6- 8HRS PRN Cyclobenzaprine Hcl 10 Mg Tablet 10 Mg PO TID PRN PRN Zofran Odt (Ondansetron) 4 Mg Tab.rapdis 1 Tab SL Q6HRS PRN Reported Sucralfate 1 Gm Tablet 1 Gm PO BID Ventolin Hfa Inhaler (Albuterol Sulfate) 18 Gm Hfa.aer.ad 2 Puff INH Q4HRS PRN Spironolactone 25 Mg Tablet 0.5 Tab PO DAILY Ranexa (Ranolazine) 1,000 Mg Tab.er.12h 1 Tab PO BID 30 Days Omeprazole 40 Mg Capsule.dr 1 Cap PO DAILY Ketoconazole 15 Gm Cream..g. 1 Katharina TP BID Zetia (Ezetimibe) 10 Mg Tablet 1 Tab PO DAILY 30 Days Jakafi (Ruxolitinib Phosphate) 10 Mg Tablet 1 Tab PO BID 30 Days Atorvastatin Calcium 40 Mg Tablet 80 Mg PO DAILY Ventolin Hfa Inhaler (Albuterol Sulfate) 18 Gm Hfa.aer.ad 18 Gm IH Symbicort 160-4.5 Mcg Inhaler (Budesonide/Formoterol Fumarate) 10.2 Gm Hfa.aer.ad 10.2 Gm IH BID Oxybutynin Chloride 5 Mg Tablet 2.5 Mg PO PRN DAILY Nitrostat (Nitroglycerin) 0.4 Mg Tab.subl 0.4 Mg SL Gabapentin 600 Mg Tablet 600 Mg PO BID Allergies Allergies: Coded Allergies: JU Inhibitors (Verified Allergy, Severe, ANAPHYLAXIS, 09/13/16) Iodine and Iodide Containing Produc (Verified Allergy, Severe, PT STATES CPR FOLLOWING IODINE INJECTION AT [facility], 12/24/18) levofloxacin (Verified Allergy, Severe, ANAPHYLAXIS, 09/13/16) Sulfa (Sulfonamide Antibiotics) (Verified Allergy, Intermediate, RASH, 09/13/16) celecoxib (Verified Allergy, Intermediate, ANAPHYLAXIS, 10/16/19) digoxin (Verified Allergy, Intermediate, 01/31/17) doxycycline (Verified Allergy, Intermediate, RASH, 09/13/16) hydrochlorothiazide (Verified Allergy, Intermediate, 01/31/17) hydrocodone (Verified Allergy, Intermediate, 01/31/17) lisinopril (Verified Allergy, Intermediate, 01/31/17) nortriptyline (Verified Allergy, Intermediate, STOMACH UPSET, 12/24/18) oxycodone (Verified Allergy, Intermediate, ITCHING ONLY WHEN TAKING HIGH DOSES, 10/16/19) pentazocine (Verified Allergy, Intermediate, RASH, 09/13/16) Uncoded Allergies: IV Contrast (Allergy, Severe, 10/16/19) Patient states it stops her heart Physical Exam General: Alert, Oriented X3, Cooperative, mild distress Extremities: No clubbing, No cyanosis, No edema, Normal pulses MUSCULOSKELETAL: Abnormal exam of left (On exam the left foot is painful over the 5th metatarsal shaft. Patient is able to dorsaflex and plantar flex foot and ankle freely with minimal pain reported. Distal pulses intact motor strength 4/5. Patient unable to flex at the left knee related to fusion of the knee.) Vitals VITALS Vital Signs Date Time Temp Pulse Resp B/P (MAP) Pulse Ox O2 Delivery O2 Flow Rate FiO2 10/18/19 09:12 74 114/62 10/18/19 08:59 100 Nasal Cannula 2.0 10/18/19 07:00 15 10/18/19 04:00 99.0 99.0 Labs Labs Laboratory Tests Test 10/16/19 20:10 10/17/19 03:30 10/17/19 22:30 10/18/19 04:00 White Blood Count 7.6 x10^3/uL (4.0-11.0) 6.6 x10^3/uL (4.0-11.0) Red Blood Count 3.97 x10^6/uL (3.50-5.40) 3.80 x10^6/uL (3.50-5.40) Hemoglobin 11.4 g/dL (12.0-15.5) 11.0 g/dL (12.0-15.5) Hematocrit 35.4 % (36.0-47.0) 33.8 % (36.0-47.0) Mean Corpuscular Volume 89 fL (79-100) 89 fL (79-100) Mean Corpuscular Hemoglobin 29 pg (25-35) 29 pg (25-35) Mean Corpuscular Hemoglobin Concent 32 g/dL (31-37) 33 g/dL (31-37) Red Cell Distribution Width 18.7 % (11.5-14.5) 18.8 % (11.5-14.5) Platelet Count 569 x10^3/uL (140-400) 501 x10^3/uL (140-400) Neutrophils (%) (Auto) 80 % (31-73) 76 % (31-73) Lymphocytes (%) (Auto) 9 % (24-48) 11 % (24-48) Monocytes (%) (Auto) 9 % (0-9) 12 % (0-9) Eosinophils (%) (Auto) 1 % (0-3) 1 % (0-3) Basophils (%) (Auto) 0 % (0-3) 1 % (0-3) Neutrophils # (Auto) 6.1 x10^3/uL (1.8-7.7) 5.0 x10^3/uL (1.8-7.7) Lymphocytes # (Auto) 0.7 x10^3/uL (1.0-4.8) 0.7 x10^3/uL (1.0-4.8) Monocytes # (Auto) 0.7 x10^3/uL (0.0-1.1) 0.8 x10^3/uL (0.0-1.1) Eosinophils # (Auto) 0.1 x10^3/uL (0.0-0.7) 0.1 x10^3/uL (0.0-0.7) Basophils # (Auto) 0.0 x10^3/uL (0.0-0.2) 0.0 x10^3/uL (0.0-0.2) Prothrombin Time 13.5 SEC (11.7-14.0) Prothromb Time International Ratio 1.1 (0.8-1.1) Sodium Level 139 mmol/L (136-145) 141 mmol/L (136-145) 142 mmol/L (136-145) Potassium Level 4.4 mmol/L (3.5-5.1) 3.9 mmol/L (3.5-5.1) 4.3 mmol/L (3.5-5.1) Chloride Level 104 mmol/L (98-107) 104 mmol/L (98-107) 105 mmol/L (98-107) Carbon Dioxide Level 32 mmol/L (21-32) 29 mmol/L (21-32) 30 mmol/L (21-32) Anion Gap 3 (6-14) 8 (6-14) 7 (6-14) Blood Urea Nitrogen 8 mg/dL (7-20) 6 mg/dL (7-20) 5 mg/dL (7-20) Creatinine 0.9 mg/dL (0.6-1.0) 0.9 mg/dL (0.6-1.0) 0.8 mg/dL (0.6-1.0) Estimated GFR (Cockcroft-Gault) 75.8 75.8 86.8 BUN/Creatinine Ratio 9 (6-20) Glucose Level 101 mg/dL (70-99) 92 mg/dL (70-99) 95 mg/dL (70-99) Calcium Level 9.3 mg/dL (8.5-10.1) 8.9 mg/dL (8.5-10.1) 8.4 mg/dL (8.5-10.1) Total Bilirubin 0.4 mg/dL (0.2-1.0) Aspartate Amino Transf (AST/SGOT) 31 U/L (15-37) Alanine Aminotransferase (ALT/SGPT) 24 U/L (14-59) Alkaline Phosphatase 102 U/L (46-116) Troponin I Quantitative 0.027 ng/mL (0.000-0.055) TU-Izb-S-Type Natriuretic Peptide 489 pg/mL (0-124) Total Protein 8.0 g/dL (6.4-8.2) Albumin 3.7 g/dL (3.4-5.0) Albumin/Globulin Ratio 0.9 (1.0-1.7) Urine Collection Type Unknown Urine Color Yellow Urine Clarity Clear Urine pH 5.5 Urine Specific [place] <=1.005 Urine Protein Negative mg/dL (NEG-TRACE) Urine Glucose (UA) Negative mg/dL (NEG) Urine Ketones (Stick) Negative mg/dL (NEG) Urine Blood Moderate (NEG) Urine Nitrite Negative (NEG) Urine Bilirubin Negative (NEG) Urine Urobilinogen Dipstick 0.2 mg/dL (0.2 mg/dL) Urine Leukocyte Esterase Moderate (NEG) Urine RBC Occ /HPF (0-2) Urine WBC 20-40 /HPF (0-4) Urine Squamous Epithelial Cells Few /LPF Urine Bacteria Few /HPF (0-FEW) Urine Mucus Slight /LPF Test 10/18/19 04:45 White Blood Count 5.6 x10^3/uL (4.0-11.0) Red Blood Count 3.65 x10^6/uL (3.50-5.40) Hemoglobin 10.8 g/dL (12.0-15.5) Hematocrit 32.4 % (36.0-47.0) Mean Corpuscular Volume 89 fL (79-100) Mean Corpuscular Hemoglobin 30 pg (25-35) Mean Corpuscular Hemoglobin Concent 33 g/dL (31-37) Red Cell Distribution Width 18.4 % (11.5-14.5) Platelet Count 464 x10^3/uL (140-400) Neutrophils (%) (Auto) 75 % (31-73) Lymphocytes (%) (Auto) 11 % (24-48) Monocytes (%) (Auto) 13 % (0-9) Eosinophils (%) (Auto) 1 % (0-3) Basophils (%) (Auto) 0 % (0-3) Neutrophils # (Auto) 4.2 x10^3/uL (1.8-7.7) Lymphocytes # (Auto) 0.6 x10^3/uL (1.0-4.8) Monocytes # (Auto) 0.7 x10^3/uL (0.0-1.1) Eosinophils # (Auto) 0.1 x10^3/uL (0.0-0.7) Basophils # (Auto) 0.0 x10^3/uL (0.0-0.2) Laboratory Tests Test 10/17/19 22:30 10/18/19 04:00 10/18/19 04:45 Urine Collection Type Unknown Urine Color Yellow Urine Clarity Clear Urine pH 5.5 Urine Specific [place] <=1.005 Urine Protein Negative mg/dL (NEG-TRACE) Urine Glucose (UA) Negative mg/dL (NEG) Urine Ketones (Stick) Negative mg/dL (NEG) Urine Blood Moderate (NEG) Urine Nitrite Negative (NEG) Urine Bilirubin Negative (NEG) Urine Urobilinogen Dipstick 0.2 mg/dL (0.2 mg/dL) Urine Leukocyte Esterase Moderate (NEG) Urine RBC Occ /HPF (0-2) Urine WBC 20-40 /HPF (0-4) Urine Squamous Epithelial Cells Few /LPF Urine Bacteria Few /HPF (0-FEW) Urine Mucus Slight /LPF Sodium Level 142 mmol/L (136-145) Potassium Level 4.3 mmol/L (3.5-5.1) Chloride Level 105 mmol/L (98-107) Carbon Dioxide Level 30 mmol/L (21-32) Anion Gap 7 (6-14) Blood Urea Nitrogen 5 mg/dL (7-20) Creatinine 0.8 mg/dL (0.6-1.0) Estimated GFR (Cockcroft-Gault) 86.8 Glucose Level 95 mg/dL (70-99) Calcium Level 8.4 mg/dL (8.5-10.1) White Blood Count 5.6 x10^3/uL (4.0-11.0) Red Blood Count 3.65 x10^6/uL (3.50-5.40) Hemoglobin 10.8 g/dL (12.0-15.5) Hematocrit 32.4 % (36.0-47.0) Mean Corpuscular Volume 89 fL (79-100) Mean Corpuscular Hemoglobin 30 pg (25-35) Mean Corpuscular Hemoglobin Concent 33 g/dL (31-37) Red Cell Distribution Width 18.4 % (11.5-14.5) Platelet Count 464 x10^3/uL (140-400) Neutrophils (%) (Auto) 75 % (31-73) Lymphocytes (%) (Auto) 11 % (24-48) Monocytes (%) (Auto) 13 % (0-9) Eosinophils (%) (Auto) 1 % (0-3) Basophils (%) (Auto) 0 % (0-3) Neutrophils # (Auto) 4.2 x10^3/uL (1.8-7.7) Lymphocytes # (Auto) 0.6 x10^3/uL (1.0-4.8) Monocytes # (Auto) 0.7 x10^3/uL (0.0-1.1) Eosinophils # (Auto) 0.1 x10^3/uL (0.0-0.7) Basophils # (Auto) 0.0 x10^3/uL (0.0-0.2) Images Images Xrays show nondisplaced 5ht metatarsal shaft fracture. Assessment/Plan Assessment/Plan Patient will not require surgical repair for treatment. Patient may be WBAT in Cam boot May remove boot for bathing. PT eval and treat Followup in clinic in 2 weeks with repeat xrays. Call for appointment. SONIA JONES APRN Oct 18, 2019 10:23
[2019-10-18] MEDS: LIDOCAINE (700MG/PATCH) PATCH. TD SCH (10:29)
--- NOTE | 2019-10-18 13:34 | RAD ---
EXAM: 1. CT HEAD WITHOUT CONTRAST. 2. CT CERVICAL SPINE WITHOUT CONTRAST. HISTORY: Fall, trauma. TECHNIQUE: Computed tomography of the head and cervical spine was performed without intravenous contrast. COMPARISON: 09/26/2017. FINDINGS: There is no intracranial hemorrhage. There are extensive chronic infarcts bilaterally in the cerebellar hemispheres. There is mild chronic microangiopathic change in the hemispheric white matter. The ventricles are normal in size and position. There is mild mucosal thickening in the right maxillary sinus. The orbits are unremarkable. The temporal bones are unremarkable. The calvarium reveals no suspicious lesions. There are atherosclerotic calcifications of the internal carotid and vertebral arteries. 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 There are also operative changes about the left axillary artery. There is mild bilateral diffuse thyroid enlargement. There are emphysematous changes in the apices. A bulla in the left apex is partially visualized. Left pacemaker leads are partially visualized. Mild reversal of the normal cervical lordosis is likely positional. A minimal levocurvature is also likely positional. There is mild osteoarthritis at C1-2. No fractures are identified. Intervertebral disc heights are maintained. There is no prevertebral soft tissue swelling. There is mild facet and uncovertebral osteoarthritis for patient age. There is no central canal stenosis or neural foraminal stenosis. IMPRESSION: 1. No acute intracranial findings. 2. Extensive chronic bilateral cerebellar infarcts. 3. No cervical fracture or acute malalignment. 4. Diffuse thyroid enlargement suggests Graves' disease. Correlate with thyroid function tests. 5. Biapical emphysematous changes. *One or more of the following individualized dose reduction techniques were utilized for this examination: 1. Automated exposure control. 2. Adjustment of the mA and/or kV according to patient size. 3. Use of iterative reconstruction technique. Electronically signed by: Tha Tillman MD (10/18/2019 1:32 PM) [facility]
--- NOTE | 2019-10-18 14:10 | NUR ---
SS following for discharge planning. SS reviewed pt chart. Pt is from home and is currently requiring oxygen. PT evaluated pt and recommended home with assistance. Pt transferred to room 416 from ICU. SW notified.
--- NOTE | 2019-10-18 14:57 | PDOC ---
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, O2 dependent (anywhere between 5-8 LNC) - DR Rolly [place] [facility] Ex smoker Indwelling pacer - DR Acharya [facility] cards HTN< CAD withs tents etyc - chronic stable SEPSIS no organ dysfcn History of Present Illness History of Present Illness transferred out of ICU Waiting on special boot for the 5th toe non displaced fx - non surgical Hgb stable Stable abd pain PLAN: SW - SNU/rehab PT OT again tmr Special boot in the works Lidoderm patch to broken ribs Dc tmr SNU or rehab once we have the boot - RX i have done and in chart STOP MOBIC and ASA 81 at home - splenic lac, small dc bernard today Vitals Vitals Vital Signs Date Time Temp Pulse Resp B/P (MAP) Pulse Ox O2 Delivery O2 Flow Rate FiO2 10/18/19 12:13 97 Nasal Cannula 2.0 10/18/19 12:00 98.3 70 18 110/69 (83) 98.3 Physical Exam General: Alert, Oriented X3, Cooperative, mild distress Lungs: Clear Abdomen: Soft, Other (ttp upper abd) Extremities: No clubbing, No cyanosis, No edema, Normal pulses Skin: No rashes, No breakdown Labs LABS Laboratory Tests Test 10/17/19 22:30 10/18/19 04:00 10/18/19 04:45 Urine Collection Type Unknown Urine Color Yellow Urine Clarity Clear Urine pH 5.5 Urine Specific [place] <=1.005 Urine Protein Negative mg/dL (NEG-TRACE) Urine Glucose (UA) Negative mg/dL (NEG) Urine Ketones (Stick) Negative mg/dL (NEG) Urine Blood Moderate (NEG) Urine Nitrite Negative (NEG) Urine Bilirubin Negative (NEG) Urine Urobilinogen Dipstick 0.2 mg/dL (0.2 mg/dL) Urine Leukocyte Esterase Moderate (NEG) Urine RBC Occ /HPF (0-2) Urine WBC 20-40 /HPF (0-4) Urine Squamous Epithelial Cells Few /LPF Urine Bacteria Few /HPF (0-FEW) Urine Mucus Slight /LPF Sodium Level 142 mmol/L (136-145) Potassium Level 4.3 mmol/L (3.5-5.1) Chloride Level 105 mmol/L (98-107) Carbon Dioxide Level 30 mmol/L (21-32) Anion Gap 7 (6-14) Blood Urea Nitrogen 5 mg/dL (7-20) Creatinine 0.8 mg/dL (0.6-1.0) Estimated GFR (Cockcroft-Gault) 86.8 Glucose Level 95 mg/dL (70-99) Calcium Level 8.4 mg/dL (8.5-10.1) White Blood Count 5.6 x10^3/uL (4.0-11.0) Red Blood Count 3.65 x10^6/uL (3.50-5.40) Hemoglobin 10.8 g/dL (12.0-15.5) Hematocrit 32.4 % (36.0-47.0) Mean Corpuscular Volume 89 fL (79-100) Mean Corpuscular Hemoglobin 30 pg (25-35) Mean Corpuscular Hemoglobin Concent 33 g/dL (31-37) Red Cell Distribution Width 18.4 % (11.5-14.5) Platelet Count 464 x10^3/uL (140-400) Neutrophils (%) (Auto) 75 % (31-73) Lymphocytes (%) (Auto) 11 % (24-48) Monocytes (%) (Auto) 13 % (0-9) Eosinophils (%) (Auto) 1 % (0-3) Basophils (%) (Auto) 0 % (0-3) Neutrophils # (Auto) 4.2 x10^3/uL (1.8-7.7) Lymphocytes # (Auto) 0.6 x10^3/uL (1.0-4.8) Monocytes # (Auto) 0.7 x10^3/uL (0.0-1.1) Eosinophils # (Auto) 0.1 x10^3/uL (0.0-0.7) Basophils # (Auto) 0.0 x10^3/uL (0.0-0.2) Review of Systems Review of Systems left rib pain, stable abd pain, left foot hurts- site of fx, weak, all else neg Assessment and Plan Assessmemt and Plan Problems Medical Problems: (1) Metatarsal bone fracture Status: Acute Comment Review of Relevant I have reviewed the following items angela (where applicable) has been applied. Labs Laboratory Tests Test 10/16/19 20:10 10/17/19 03:30 10/17/19 22:30 10/18/19 04:00 White Blood Count 7.6 x10^3/uL (4.0-11.0) 6.6 x10^3/uL (4.0-11.0) Red Blood Count 3.97 x10^6/uL (3.50-5.40) 3.80 x10^6/uL (3.50-5.40) Hemoglobin 11.4 g/dL (12.0-15.5) 11.0 g/dL (12.0-15.5) Hematocrit 35.4 % (36.0-47.0) 33.8 % (36.0-47.0) Mean Corpuscular Volume 89 fL (79-100) 89 fL (79-100) Mean Corpuscular Hemoglobin 29 pg (25-35) 29 pg (25-35) Mean Corpuscular Hemoglobin Concent 32 g/dL (31-37) 33 g/dL (31-37) Red Cell Distribution Width 18.7 % (11.5-14.5) 18.8 % (11.5-14.5) Platelet Count 569 x10^3/uL (140-400) 501 x10^3/uL (140-400) Neutrophils (%) (Auto) 80 % (31-73) 76 % (31-73) Lymphocytes (%) (Auto) 9 % (24-48) 11 % (24-48) Monocytes (%) (Auto) 9 % (0-9) 12 % (0-9) Eosinophils (%) (Auto) 1 % (0-3) 1 % (0-3) Basophils (%) (Auto) 0 % (0-3) 1 % (0-3) Neutrophils # (Auto) 6.1 x10^3/uL (1.8-7.7) 5.0 x10^3/uL (1.8-7.7) Lymphocytes # (Auto) 0.7 x10^3/uL (1.0-4.8) 0.7 x10^3/uL (1.0-4.8) Monocytes # (Auto) 0.7 x10^3/uL (0.0-1.1) 0.8 x10^3/uL (0.0-1.1) Eosinophils # (Auto) 0.1 x10^3/uL (0.0-0.7) 0.1 x10^3/uL (0.0-0.7) Basophils # (Auto) 0.0 x10^3/uL (0.0-0.2) 0.0 x10^3/uL (0.0-0.2) Prothrombin Time 13.5 SEC (11.7-14.0) Prothromb Time International Ratio 1.1 (0.8-1.1) Sodium Level 139 mmol/L (136-145) 141 mmol/L (136-145) 142 mmol/L (136-145) Potassium Level 4.4 mmol/L (3.5-5.1) 3.9 mmol/L (3.5-5.1) 4.3 mmol/L (3.5-5.1) Chloride Level 104 mmol/L (98-107) 104 mmol/L (98-107) 105 mmol/L (98-107) Carbon Dioxide Level 32 mmol/L (21-32) 29 mmol/L (21-32) 30 mmol/L (21-32) Anion Gap 3 (6-14) 8 (6-14) 7 (6-14) Blood Urea Nitrogen 8 mg/dL (7-20) 6 mg/dL (7-20) 5 mg/dL (7-20) Creatinine 0.9 mg/dL (0.6-1.0) 0.9 mg/dL (0.6-1.0) 0.8 mg/dL (0.6-1.0) Estimated GFR (Cockcroft-Gault) 75.8 75.8 86.8 BUN/Creatinine Ratio 9 (6-20) Glucose Level 101 mg/dL (70-99) 92 mg/dL (70-99) 95 mg/dL (70-99) Calcium Level 9.3 mg/dL (8.5-10.1) 8.9 mg/dL (8.5-10.1) 8.4 mg/dL (8.5-10.1) Total Bilirubin 0.4 mg/dL (0.2-1.0) Aspartate Amino Transf (AST/SGOT) 31 U/L (15-37) Alanine Aminotransferase (ALT/SGPT) 24 U/L (14-59) Alkaline Phosphatase 102 U/L (46-116) Troponin I Quantitative 0.027 ng/mL (0.000-0.055) CF-Mnv-J-Type Natriuretic Peptide 489 pg/mL (0-124) Total Protein 8.0 g/dL (6.4-8.2) Albumin 3.7 g/dL (3.4-5.0) Albumin/Globulin Ratio 0.9 (1.0-1.7) Urine Collection Type Unknown Urine Color Yellow Urine Clarity Clear Urine pH 5.5 Urine Specific [place] <=1.005 Urine Protein Negative mg/dL (NEG-TRACE) Urine Glucose (UA) Negative mg/dL (NEG) Urine Ketones (Stick) Negative mg/dL (NEG) Urine Blood Moderate (NEG) Urine Nitrite Negative (NEG) Urine Bilirubin Negative (NEG) Urine Urobilinogen Dipstick 0.2 mg/dL (0.2 mg/dL) Urine Leukocyte Esterase Moderate (NEG) Urine RBC Occ /HPF (0-2) Urine WBC 20-40 /HPF (0-4) Urine Squamous Epithelial Cells Few /LPF Urine Bacteria Few /HPF (0-FEW) Urine Mucus Slight /LPF Test 10/18/19 04:45 White Blood Count 5.6 x10^3/uL (4.0-11.0) Red Blood Count 3.65 x10^6/uL (3.50-5.40) Hemoglobin 10.8 g/dL (12.0-15.5) Hematocrit 32.4 % (36.0-47.0) Mean Corpuscular Volume 89 fL (79-100) Mean Corpuscular Hemoglobin 30 pg (25-35) Mean Corpuscular Hemoglobin Concent 33 g/dL (31-37) Red Cell Distribution Width 18.4 % (11.5-14.5) Platelet Count 464 x10^3/uL (140-400) Neutrophils (%) (Auto) 75 % (31-73) Lymphocytes (%) (Auto) 11 % (24-48) Monocytes (%) (Auto) 13 % (0-9) Eosinophils (%) (Auto) 1 % (0-3) Basophils (%) (Auto) 0 % (0-3) Neutrophils # (Auto) 4.2 x10^3/uL (1.8-7.7) Lymphocytes # (Auto) 0.6 x10^3/uL (1.0-4.8) Monocytes # (Auto) 0.7 x10^3/uL (0.0-1.1) Eosinophils # (Auto) 0.1 x10^3/uL (0.0-0.7) Basophils # (Auto) 0.0 x10^3/uL (0.0-0.2) Laboratory Tests Test 10/17/19 22:30 10/18/19 04:00 10/18/19 04:45 Urine Collection Type Unknown Urine Color Yellow Urine Clarity Clear Urine pH 5.5 Urine Specific [place] <=1.005 Urine Protein Negative mg/dL (NEG-TRACE) Urine Glucose (UA) Negative mg/dL (NEG) Urine Ketones (Stick) Negative mg/dL (NEG) Urine Blood Moderate (NEG) Urine Nitrite Negative (NEG) Urine Bilirubin Negative (NEG) Urine Urobilinogen Dipstick 0.2 mg/dL (0.2 mg/dL) Urine Leukocyte Esterase Moderate (NEG) Urine RBC Occ /HPF (0-2) Urine WBC 20-40 /HPF (0-4) Urine Squamous Epithelial Cells Few /LPF Urine Bacteria Few /HPF (0-FEW) Urine Mucus Slight /LPF Sodium Level 142 mmol/L (136-145) Potassium Level 4.3 mmol/L (3.5-5.1) Chloride Level 105 mmol/L (98-107) Carbon Dioxide Level 30 mmol/L (21-32) Anion Gap 7 (6-14) Blood Urea Nitrogen 5 mg/dL (7-20) Creatinine 0.8 mg/dL (0.6-1.0) Estimated GFR (Cockcroft-Gault) 86.8 Glucose Level 95 mg/dL (70-99) Calcium Level 8.4 mg/dL (8.5-10.1) White Blood Count 5.6 x10^3/uL (4.0-11.0) Red Blood Count 3.65 x10^6/uL (3.50-5.40) Hemoglobin 10.8 g/dL (12.0-15.5) Hematocrit 32.4 % (36.0-47.0) Mean Corpuscular Volume 89 fL (79-100) Mean Corpuscular Hemoglobin 30 pg (25-35) Mean Corpuscular Hemoglobin Concent 33 g/dL (31-37) Red Cell Distribution Width 18.4 % (11.5-14.5) Platelet Count 464 x10^3/uL (140-400) Neutrophils (%) (Auto) 75 % (31-73) Lymphocytes (%) (Auto) 11 % (24-48) Monocytes (%) (Auto) 13 % (0-9) Eosinophils (%) (Auto) 1 % (0-3) Basophils (%) (Auto) 0 % (0-3) Neutrophils # (Auto) 4.2 x10^3/uL (1.8-7.7) Lymphocytes # (Auto) 0.6 x10^3/uL (1.0-4.8) Monocytes # (Auto) 0.7 x10^3/uL (0.0-1.1) Eosinophils # (Auto) 0.1 x10^3/uL (0.0-0.7) Basophils # (Auto) 0.0 x10^3/uL (0.0-0.2) Medications Current Medications Fentanyl Citrate (Fentanyl 2ml Vial) 50 mcg 1X ONCE IVP Last administered on 10/16/19at 19:48; Start 10/16/19 at 19:00; Stop 10/16/19 at 19:01; Status DC Ondansetron HCl (Zofran) 4 mg 1X ONCE IVP Last administered on 10/16/19at 19:47; Start 10/16/19 at 19:00; Stop 10/16/19 at 19:01; Status DC Ondansetron HCl (Zofran) 4 mg PRN Q8HRS PRN IV NAUSEA/VOMITING; Start 10/16/19 at 21:45; Stop 10/17/19 at 21:44; Status DC Morphine Sulfate (Morphine Sulfate) 2 mg PRN Q2HR PRN IV PAIN Last administered on 10/17/19at 20:01; Start 10/16/19 at 21:45; Stop 10/17/19 at 21:44; Status DC Influenza Virus Vaccine Quadrival (Afluria Quad 2019-20 (3yr Up) Syringe) 0.5 ml ONCE ONCE VAX IM ; Start 10/17/19 at 09:00; Stop 10/17/19 at 09:01; Status DC EZETIMIBE (Zetia) 10 mg DAILY PO ; Start 10/17/19 at 09:00; Stop 10/16/19 at 23:35; Status DC Non-Formulary Medication (Gabapentin ) 600 mg BID PO ; Start 10/17/19 at 09:00; Stop 10/16/19 at 23:35; Status DC Lidocaine (Lidoderm) 1 patch PRN DAILY PRN TD PAIN Last administered on 10/17/19 11:02; Start 10/16/19 at 23:30 EZETIMIBE (Zetia) 10 mg DAILY PO Last administered on 10/18/19at 09:11; Start 10/16/19 at 23:30 Gabapentin (Neurontin) 600 mg BID PO Last administered on 10/18/19 09:12; Start 10/16/19 at 23:45 Oxycodone/ Acetaminophen (Percocet 5/325) 1 tab PRN Q6HRS PRN PO PAIN Last administered on 10/18/19 04:37; Start 10/16/19 at 23:45; Stop 10/18/19 at 09:33; Status DC Miscellaneous (Lidoderm Patch Removal) 1 ea QHS MC Last administered on 10/17/19at 21:00; Start 10/17/19 at 21:00 Cyclobenzaprine HCl (Flexeril) 10 mg PRN Q6HRS PRN PO MUSCLE SPASMS Last adm inistered on 10/17/19at 03:54; Start 10/17/19 at 03:45 Albuterol/ Ipratropium (Duoneb) 3 ml RTQID NEB Last administered on 10/18/19 11:29; Start 10/17/19 at 08:00 Budesonide (Pulmicort) 0.5 mg RTBID NEB Last administered on 10/18/19at 08:59; Start 10/17/19 at 08:00 Temazepam (Restoril) 7.5 mg PRN QHS PRN PO INSOMNIA; Start 10/17/19 at 08:15 Ketorolac Tromethamine (Toradol 15mg Vial) 15 mg PRN Q6HRS PRN IVP PAIN; Start 10/17/19 at 08:15; Stop 10/22/19 at 08:14; Status UNV Sodium Chloride 1,000 ml @ 2,700 mls/hr Q23M IV ; Start 10/17/19 at 08:30; Stop 10/17/19 at 09:30; Status DC Atorvastatin Calcium (Lipitor) 80 mg QHS PO Last administered on 10/17/19at 21:12; Start 10/17/19 at 21:00 Cyclobenzaprine HCl (Flexeril) 10 mg TID PO Last administered on 10/18/19at 13:41; Start 10/17/19 at 10:00 Ketoconazole (Nizoral 2% Topical) 1 katharina BID TP Last administered on 10/18/19at 09:11; Start 10/17/19 at 10:00 Ondansetron HCl (Zofran Odt) 4 mg PRN Q6HRS PRN PO NAUSEA; Start 10/17/19 at 09:00 Oxybutynin Chloride (Ditropan) 2.5 mg PRN DAILY PRN PO BLADDER Last administered on 10/17/19at 10:53; Start 10/17/19 at 09:00 Spironolactone (Aldactone) 12.5 mg DAILY PO Last administered on 10/18/19at 09:11; Start 10/17/19 at 10:00 Sucralfate (Carafate) 1 gm BID PO Last administered on 10/18/19at 09:11; Start 10/17/19 at 12:00 Albuterol Sulfate (Ventolin Neb Soln) 2.5 mg PRN Q6HRS PRN NEB SHORTNESS OF BREATH; Start 10/17/19 at 09:15 Non-Formulary Medication (Budesonide/ Formoterol Fumarate (Symbicort 160-4.5 Mcg Inhaler)) 10.2 gm BID IH ; Start 10/17/19 at 09:00; Status UNV Pantoprazole Sodium (Protonix) 40 mg DAILYAC PO Last administered on 10/18/19at 09:11; Start 10/17/19 at 10:00 Ranolazine (Ranexa) 1,000 mg BID PO Last administered on 10/18/19at 09:12; Start 10/17/19 at 10:00 Non-Formulary Medication (Ruxolitinib Phosphate (Jakafi)) 1 tab DAILY07 PO Last administered on 10/18/19at 06:30; Start 10/17/19 at 17:00 Oxycodone/ Acetaminophen (Percocet 5/325) 1 tab PRN Q4HRS PRN PO PAIN Last administered on 10/18/19at 10:29; Start 10/18/19 at 09:45 Lidocaine (Lidoderm) 1 patch DAILY TD Last administered on 10/18/19at 10:29; Start 10/18/19 at 09:45 Miscellaneous (Lidoderm Patch Removal) 1 ea QHS MC ; Start 10/18/19 at 21:00; Status UNV Active Scripts Active Medi-Patch With Lidocaine (Lidocain/Me-Salicyl/Caps/Menth) 1 Each Adh..patch 1 Each TP DAILY 14 Days Percocet 5-325 Mg Tablet (Oxycodone/Acetaminophen) 1 Each Tablet 1 Tab PO Q6- 8HRS PRN Cyclobenzaprine Hcl 10 Mg Tablet 10 Mg PO TID PRN PRN Zofran Odt (Ondansetron) 4 Mg Tab.rapdis 1 Tab SL Q6HRS PRN Reported Sucralfate 1 Gm Tablet 1 Gm PO BID Ventolin Hfa Inhaler (Albuterol Sulfate) 18 Gm Hfa.aer.ad 2 Puff INH Q4HRS PRN Spironolactone 25 Mg Tablet 0.5 Tab PO DAILY Ranexa (Ranolazine) 1,000 Mg Tab.er.12h 1 Tab PO BID 30 Days Omeprazole 40 Mg Capsule.dr 1 Cap PO DAILY Ketoconazole 15 Gm Cream..g. 1 Katharina TP BID Zetia (Ezetimibe) 10 Mg Tablet 1 Tab PO DAILY 30 Days Jakafi (Ruxolitinib Phosphate) 10 Mg Tablet 1 Tab PO BID 30 Days Atorvastatin Calcium 40 Mg Tablet 80 Mg PO DAILY Ventolin Hfa Inhaler (Albuterol Sulfate) 18 Gm Hfa.aer.ad 18 Gm IH Symbicort 160-4.5 Mcg Inhaler (Budesonide/Formoterol Fumarate) 10.2 Gm Hfa.aer.ad 10.2 Gm IH BID Oxybutynin Chloride 5 Mg Tablet 2.5 Mg PO PRN DAILY Nitrostat (Nitroglycerin) 0.4 Mg Tab.subl 0.4 Mg SL Gabapentin 600 Mg Tablet 600 Mg PO BID Vitals/I & O Vital Sign - Last 24 Hours 10/17/19 10/17/19 10/17/19 10/17/19 15:31 15:49 16:00 16:00 Pulse 72 Resp 25 B/P (MAP) 125/57 (79) Pulse Ox 98 98 O2 Delivery Nasal Cannula O2 Flow Rate 2.0 2.0 2.0 2.0 10/17/19 10/17/19 10/17/19 10/17/19 17:00 18:00 18:00 19:00 Temp 99.0 99.0 Pulse 72 86 76 Resp 20 18 12 B/P (MAP) 106/57 (73) 130/74 (92) 105/56 (72) Pulse Ox 97 O2 Delivery Nasal Cannula Nasal Cannula Nasal Cannula O2 Flow Rate 2.0 2.0 2.0 2.0 10/17/19 10/17/19 10/17/19 10/17/19 19:44 20:00 20:00 20:01 Temp 98.3 98.3 Pulse 84 Resp 20 30 B/P (MAP) 107/58 (74) Pulse Ox 96 96 98 O2 Delivery Nasal Cannula Nasal Cannula Nasal Cannula Nasal Cannula O2 Flow Rate 2.0 2.0 2.0 2.0 10/17/19 10/17/19 10/17/19 10/17/19 21:00 21:13 22:00 23:00 Pulse 80 85 85 79 Resp 13 17 20 B/P (MAP) 111/59 (76) 111/59 135/59 (84) 96/51 (66) Pulse Ox 96 100 100 O2 Delivery Nasal Cannula Nasal Cannula Nasal Cannula O2 Flow Rate 2.0 2.0 2.0 10/17/19 10/18/19 10/18/19 10/18/19 23:38 00:00 00:00 01:00 Temp 99.4 99.4 Pulse 75 70 Resp 15 20 B/P (MAP) 108/52 (70) 137/62 (87) Pulse Ox 94 98 97 O2 Delivery BiPAP/CPAP BiPAP/CPAP Bi-pap BiPAP/CPAP 10/18/19 10/18/19 10/18/19 10/18/19 01:37 02:00 03:00 03:55 Pulse 70 71 Resp 16 14 B/P (MAP) 129/63 (85) 134/68 (90) Pulse Ox 96 98 97 98 O2 Delivery BiPAP/CPAP BiPAP/CPAP BiPAP/CPAP BiPAP/CPAP 10/18/19 10/18/19 10/18/19 10/18/19 04:00 04:00 05:00 06:00 Temp 99.0 99.0 Pulse 73 73 72 Resp 20 22 12 B/P (MAP) 134/67 (89) 108/66 (80) 110/53 (72) Pulse Ox 100 100 97 O2 Delivery Bi-pap BiPAP/CPAP Nasal Cannula Nasal Cannula O2 Flow Rate 2.0 2.0 10/18/19 10/18/19 10/18/19 10/18/19 07:00 08:00 08:00 08:00 Temp 98.5 98.5 Pulse 67 77 Resp 15 20 B/P (MAP) 116/58 (77) 114/62 (79) Pulse Ox 99 96 O2 Delivery Nasal Cannula Nasal Cannula Nasal Cannula O2 Flow Rate 2.0 2.0 2.0 2.0 10/18/19 10/18/19 10/18/19 10/18/19 08:59 09:12 10:29 11:30 Pulse 74 Resp 14 B/P (MAP) 114/62 Pulse Ox 100 97 O2 Delivery Nasal Cannula Nasal Cannula Nasal Cannula O2 Flow Rate 2.0 2.0 2.0 10/18/19 10/18/19 12:00 12:13 Temp 98.3 98.3 Pulse 70 Resp 18 B/P (MAP) 110/69 (83) Pulse Ox 97 97 O2 Delivery Nasal Cannula Nasal Cannula O2 Flow Rate 2.0 2.0 Intake and Output 10/17/19 10/17/19 10/18/19 15:00 23:00 07:00 Intake Total 1150 ml 775 ml 1000 ml Output Total 1375 ml 1425 ml 890 ml Balance -225 ml -650 ml 110 ml LILIAM GIL MD Oct 18, 2019 14:56
[2019-10-18] MEDS ORDERED: FLU VAX QS 2019-20 (36MOS+)/PF 0.5 ML SYRINGE. VAX IM ONE (15:45)
[2019-10-18] MEDS ORDERED: PATCH REMOVAL. MC SCH (21:00)
[2019-10-18] MEDS: PATCH REMOVAL. MC SCH (21:00)
[2019-10-18] MEDS: ATORVASTATIN CALCIUM 40 MG TABLET. PO SCH (22:19)
--- NOTE | 2019-10-19 00:35 | NUR ---
Patient unable to void post-Zambrano catheter removal despite multiple attempts on bedside commode. Patient bladder scanned and approximately 148 PVR measured, patient states, "...I've been trying to not drink too much water". Patient encouraged to drink fluids, will continue to monitor.
[2019-10-19 03:37] VITALS: BP 83/52
[2019-10-19] MEDS: oxyCODONE/APAP 5/325 1 TAB TABLET PO PRN ×3 (05:09→14:43)
[2019-10-19] MEDS: PANTOPRAZOLE 40 MG TABLET.DR. PO SCH (05:57)
[2019-10-19] MEDS: RUXOLITINIB PHOSPHATE 10 MG PO SCH (05:57)
[2019-10-19] MEDS: IPRATRPIUM/ALBUTEROL 0.5/2.5MG 3 ML NEBU. NEB SCH ×4 (07:34→19:52)
[2019-10-19] MEDS: BUDESONIDE 0.5 MG/2 ML NEBU. NEB SCH ×2 (07:34→19:52)
[2019-10-19 08:00] VITALS: BP 105/59
--- NOTE | 2019-10-19 08:25 | PDOC ---
RAHUL ASTUDILLO MAINTENANCE AND ENGINEERING MANAGER 10/19/19 0825: SURGICAL PROGRESS NOTE Subjective up to bathroom ambulating increases pain left side sore Vital Signs Vital Signs Date Time Temp Pulse Resp B/P (MAP) Pulse Ox O2 Delivery O2 Flow Rate FiO2 10/19/19 08:00 98.9 75 105/59 (74) 97 Nasal Cannula 2.0 98.9 10/19/19 06:27 16 I&O Intake and Output 10/19/19 07:00 Intake Total 836 ml Output Total 700 ml Balance 136 ml Intake Oral 836 ml Output Urine Total 700 ml General: Alert, Oriented X3, Cooperative Abdomen: Soft, Other (ND, TTP left abdomen ) Labs Laboratory Tests Test 10/17/19 22:30 10/18/19 04:00 10/18/19 04:45 Urine Collection Type Unknown Urine Color Yellow Urine Clarity Clear Urine pH 5.5 Urine Specific [place] <=1.005 Urine Protein Negative mg/dL (NEG-TRACE) Urine Glucose (UA) Negative mg/dL (NEG) Urine Ketones (Stick) Negative mg/dL (NEG) Urine Blood Moderate (NEG) Urine Nitrite Negative (NEG) Urine Bilirubin Negative (NEG) Urine Urobilinogen Dipstick 0.2 mg/dL (0.2 mg/dL) Urine Leukocyte Esterase Moderate (NEG) Urine RBC Occ /HPF (0-2) Urine WBC 20-40 /HPF (0-4) Urine Squamous Epithelial Cells Few /LPF Urine Bacteria Few /HPF (0-FEW) Urine Mucus Slight /LPF Sodium Level 142 mmol/L (136-145) Potassium Level 4.3 mmol/L (3.5-5.1) Chloride Level 105 mmol/L (98-107) Carbon Dioxide Level 30 mmol/L (21-32) Anion Gap 7 (6-14) Blood Urea Nitrogen 5 mg/dL (7-20) Creatinine 0.8 mg/dL (0.6-1.0) Estimated GFR (Cockcroft-Gault) 86.8 Glucose Level 95 mg/dL (70-99) Calcium Level 8.4 mg/dL (8.5-10.1) White Blood Count 5.6 x10^3/uL (4.0-11.0) Red Blood Count 3.65 x10^6/uL (3.50-5.40) Hemoglobin 10.8 g/dL (12.0-15.5) Hematocrit 32.4 % (36.0-47.0) Mean Corpuscular Volume 89 fL (79-100) Mean Corpuscular Hemoglobin 30 pg (25-35) Mean Corpuscular Hemoglobin Concent 33 g/dL (31-37) Red Cell Distribution Width 18.4 % (11.5-14.5) Platelet Count 464 x10^3/uL (140-400) Neutrophils (%) (Auto) 75 % (31-73) Lymphocytes (%) (Auto) 11 % (24-48) Monocytes (%) (Auto) 13 % (0-9) Eosinophils (%) (Auto) 1 % (0-3) Basophils (%) (Auto) 0 % (0-3) Neutrophils # (Auto) 4.2 x10^3/uL (1.8-7.7) Lymphocytes # (Auto) 0.6 x10^3/uL (1.0-4.8) Monocytes # (Auto) 0.7 x10^3/uL (0.0-1.1) Eosinophils # (Auto) 0.1 x10^3/uL (0.0-0.7) Basophils # (Auto) 0.0 x10^3/uL (0.0-0.2) Problem List Problems Medical Problems: (1) Metatarsal bone fracture Status: Acute Assessment/Plan stable no surgical needs SCOTT WINTERS MD 10/19/19 1501: SURGICAL PROGRESS NOTE Assessment/Plan Pt seen and examined. Agree with Ms. Astudillo's note Pt with LUQ, left chest pain, but some improvement varun diet abd soft, hgb stable cont supportive care. RAHUL ASTUDILLO APRN Oct 19, 2019 08:25 SCOTT WINTERS MD Oct 19, 2019 15:01
[2019-10-19] MEDS: RANOLAZINE 500 MG TAB.ER.12H PO SCH ×2 (08:48→21:20)
[2019-10-19] MEDS: EZETIMIBE 10 MG TABLET. PO SCH (08:48)
[2019-10-19] MEDS: CYCLOBENZAPRINE 10 MG TABLET. PO SCH ×3 (08:48→21:17)
[2019-10-19] MEDS: KETOCONAZOLE 2% TOPICAL CREAM 15GM TUBE. TP SCH ×2 (08:49→21:24)
[2019-10-19] MEDS: SPIRONOLACTONE 25 MG TABLET PO SCH (08:49)
[2019-10-19] MEDS: LIDOCAINE (700MG/PATCH) PATCH. TD SCH (08:49)
[2019-10-19] MEDS: GABAPENTIN 300 MG CAPSULE. PO SCH ×2 (08:49→21:17)
[2019-10-19] MEDS: SUCRALFATE 1 GM TABLET. PO SCH ×2 (10:11→21:17)
--- NOTE | 2019-10-19 10:44 | PDOC ---
PULMONARY PROGRESS NOTES Subjective PT WITH PAIN AT TIMES NO INCREASE SOA Vitals Vital Signs Date Time Temp Pulse Resp B/P (MAP) Pulse Ox O2 Delivery O2 Flow Rate FiO2 10/19/19 10:13 97 Nasal Cannula 2.0 10/19/19 08:48 75 105/59 10/19/19 08:00 98.9 98.9 10/19/19 06:27 16 ROS: No Nausea, No Abdominal Pain, No Increase Cough General: Alert Lungs: Clear Cardiovascular: S1, S2 Abdomen: Soft, Non-tender Neuro Exam: Alert Extremities: No Edema Skin: Warm Labs Laboratory Tests Test 10/17/19 22:30 10/18/19 04:00 10/18/19 04:45 Urine Collection Type Unknown Urine Color Yellow Urine Clarity Clear Urine pH 5.5 Urine Specific [place] <=1.005 Urine Protein Negative mg/dL (NEG-TRACE) Urine Glucose (UA) Negative mg/dL (NEG) Urine Ketones (Stick) Negative mg/dL (NEG) Urine Blood Moderate (NEG) Urine Nitrite Negative (NEG) Urine Bilirubin Negative (NEG) Urine Urobilinogen Dipstick 0.2 mg/dL (0.2 mg/dL) Urine Leukocyte Esterase Moderate (NEG) Urine RBC Occ /HPF (0-2) Urine WBC 20-40 /HPF (0-4) Urine Squamous Epithelial Cells Few /LPF Urine Bacteria Few /HPF (0-FEW) Urine Mucus Slight /LPF Sodium Level 142 mmol/L (136-145) Potassium Level 4.3 mmol/L (3.5-5.1) Chloride Level 105 mmol/L (98-107) Carbon Dioxide Level 30 mmol/L (21-32) Anion Gap 7 (6-14) Blood Urea Nitrogen 5 mg/dL (7-20) Creatinine 0.8 mg/dL (0.6-1.0) Estimated GFR (Cockcroft-Gault) 86.8 Glucose Level 95 mg/dL (70-99) Calcium Level 8.4 mg/dL (8.5-10.1) White Blood Count 5.6 x10^3/uL (4.0-11.0) Red Blood Count 3.65 x10^6/uL (3.50-5.40) Hemoglobin 10.8 g/dL (12.0-15.5) Hematocrit 32.4 % (36.0-47.0) Mean Corpuscular Volume 89 fL (79-100) Mean Corpuscular Hemoglobin 30 pg (25-35) Mean Corpuscular Hemoglobin Concent 33 g/dL (31-37) Red Cell Distribution Width 18.4 % (11.5-14.5) Platelet Count 464 x10^3/uL (140-400) Neutrophils (%) (Auto) 75 % (31-73) Lymphocytes (%) (Auto) 11 % (24-48) Monocytes (%) (Auto) 13 % (0-9) Eosinophils (%) (Auto) 1 % (0-3) Basophils (%) (Auto) 0 % (0-3) Neutrophils # (Auto) 4.2 x10^3/uL (1.8-7.7) Lymphocytes # (Auto) 0.6 x10^3/uL (1.0-4.8) Monocytes # (Auto) 0.7 x10^3/uL (0.0-1.1) Eosinophils # (Auto) 0.1 x10^3/uL (0.0-0.7) Basophils # (Auto) 0.0 x10^3/uL (0.0-0.2) Medications Active Scripts Medications Dose Route/Sig Max Daily Dose Days Date Category Sucralfate 1 Gm Tablet 1 Gm PO BID 10/16/19 Reported Ventolin Hfa Inhaler (Albuterol Sulfate) 18 Gm Hfa.aer.ad 2 Puff INH Q4HRS PRN 10/16/19 Reported Spironolactone 25 Mg Tablet 0.5 Tab PO DAILY 10/16/19 Reported Ranexa (Ranolazine) 1,000 Mg Tab.er.12h 1 Tab PO BID 30 10/16/19 Reported Omeprazole 40 Mg Capsule.dr 1 Cap PO DAILY 10/16/19 Reported Meloxicam 7.5 Mg Tablet 1 Tab PO DAILY PRN 30 10/16/19 Reported Ketoconazole 15 Gm Cream..g. 1 Katharina TP BID 10/16/19 Reported Zetia (Ezetimibe) 10 Mg Tablet 1 Tab PO DAILY 30 10/16/19 Reported Jakafi (Ruxolitinib Phosphate) 10 Mg Tablet 1 Tab PO BID 30 10/16/19 Reported Atorvastatin Calcium 40 Mg Tablet 80 Mg PO DAILY 10/16/19 Reported Zofran Odt (Ondansetron) 4 Mg Tab.rapdis 1 Tab SL Q6HRS PRN 01/31/17 Rx Percocet 5-325 Mg Tablet (Oxycodone/Acetaminophen) 1 Each Tablet 1 Tab PO Q6-8HRS PRN 01/31/17 Rx Ventolin Hfa Inhaler (Albuterol Sulfate) 18 Gm Hfa.aer.ad 18 Gm IH 03/03/14 Reported Symbicort 160-4.5 Mcg Inhaler (Budesonide/Formoterol Fumarate) 10.2 Gm Hfa.aer.ad 10.2 Gm IH BID 03/03/14 Reported Oxybutynin Chloride 5 Mg Tablet 2.5 Mg PO PRN DAILY 03/03/14 Reported Nitrostat (Nitroglycerin) 0.4 Mg Tab.subl 0.4 Mg SL 03/03/14 Reported Gabapentin 600 Mg Tablet 600 Mg PO BID 03/03/14 Reported Cyclobenzaprine Hcl 10 Mg Tablet 10 Mg PO 03/03/14 Reported Aspirin 81 Mg Tab.chew 81 Mg PO DAILY 03/03/14 Reported Impression . IMPRESSION: 1. Acute on chronic respiratory failure secondary to rib fracture, mild acute exacerbation of chronic obstructive pulmonary disease. She has tiny left pleural effusion. 2. Abnormal CT of the chest. 3. Chronic obstructive pulmonary disease with mild acute exacerbation. 4. Obstructive sleep apnea-hypopnea syndrome. 5. History of congestive heart failure. 6. Status post fall with rib fractures. 7. Spleen laceration. 8. Ex-smoker. Plan . OK TO D/C IS FOLLOW UP IN MY OFFICE IN 6-8 WEEKS INFORMED PT OF IMPORTANCE OF IS PAIN MANAGEMENT JAYCE OLVERA MD Oct 19, 2019 10:44
[2019-10-19 12:00] VITALS: BP 86/51
--- NOTE | 2019-10-19 13:46 | NUR ---
SS following up with discharge planning. Nurse navigator met with pt to discuss home healthcare and home health options. Pt agreeable to home healthcare at discharge with [facility], ; fax [phone]. SS will continue to follow for discharge planning.
[2019-10-19 16:00] VITALS: BP 116/66
--- NOTE | 2019-10-19 17:25 | PDOC ---
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, O2 dependent PPM HTN CAD SEPSIS History of Present Illness History of Present Illness Pt seen and examined DW Case mgmt Vitals/I&O Vitals/I&O: Vital Signs Date Time Temp Pulse Resp B/P (MAP) Pulse Ox O2 Delivery O2 Flow Rate FiO2 10/19/19 16:00 98.2 74 116/66 (83) 95 Nasal Cannula 2.0 98.2 10/19/19 06:27 16 I & O 10/18/19 10/18/19 10/19/19 15:00 23:00 07:00 Intake Total 596 ml 240 ml Output Total 350 ml 350 ml Balance 246 ml 240 ml -350 ml Physical Exam General: Alert, Oriented X3, Cooperative Heart: Regular rate, Normal S1 Lungs: Clear Abdomen: Soft, Other (ND, TTP left abdomen ) Extremities: No clubbing, No cyanosis, No edema, Normal pulses Skin: No rashes, No breakdown Review of Systems Review of Systems: co pain CO weakness Assessment and Plan Assessmemt and Plan Problems Medical Problems: (1) Metatarsal bone fracture Status: Acute 3 left rib fxs, traumatic Small splenic lac- non surgical FAll at home Weakness 5th metatarsal non displaced fx 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 MORIS HERNANDEZ III DO Oct 19, 2019 17:25
[2019-10-19 19:30] VITALS: BP 114/63
[2019-10-19] MEDS: PATCH REMOVAL. MC SCH (21:00)
[2019-10-19] MEDS: ATORVASTATIN CALCIUM 40 MG TABLET. PO SCH (21:17)
[2019-10-19 23:34] VITALS: BP 120/61
[2019-10-20 03:33] VITALS: BP 117/67
[2019-10-20] MEDS: PANTOPRAZOLE 40 MG TABLET.DR. PO SCH (05:59)
[2019-10-20] MEDS: RUXOLITINIB PHOSPHATE 10 MG PO SCH (05:59)
[2019-10-20 08:00] VITALS: BP 125/67
[2019-10-20] MEDS: IPRATRPIUM/ALBUTEROL 0.5/2.5MG 3 ML NEBU. NEB SCH ×4 (08:33→19:36)
[2019-10-20] MEDS: BUDESONIDE 0.5 MG/2 ML NEBU. NEB SCH ×2 (08:33→19:36)
[2019-10-20] MEDS: oxyCODONE/APAP 5/325 1 TAB TABLET PO PRN ×2 (08:53→23:16)
[2019-10-20] MEDS: EZETIMIBE 10 MG TABLET. PO SCH (08:53)
[2019-10-20] MEDS: LIDOCAINE (700MG/PATCH) PATCH. TD SCH (08:53)
[2019-10-20] MEDS: KETOCONAZOLE 2% TOPICAL CREAM 15GM TUBE. TP SCH ×2 (08:53→20:59)
[2019-10-20] MEDS: RANOLAZINE 500 MG TAB.ER.12H PO SCH ×2 (08:53→20:56)
[2019-10-20] MEDS: GABAPENTIN 300 MG CAPSULE. PO SCH ×2 (08:54→20:55)
[2019-10-20] MEDS: CYCLOBENZAPRINE 10 MG TABLET. PO SCH ×3 (08:54→20:55)
[2019-10-20] MEDS: SUCRALFATE 1 GM TABLET. PO SCH ×2 (08:54→20:55)
[2019-10-20] MEDS: SPIRONOLACTONE 25 MG TABLET PO SCH (08:54)
--- NOTE | 2019-10-20 10:02 | PDOC ---
PULMONARY PROGRESS NOTES Subjective PT WITH PAIN AT TIMES NO INCREASE SOA Vitals Vital Signs Date Time Temp Pulse Resp B/P (MAP) Pulse Ox O2 Delivery O2 Flow Rate FiO2 10/20/19 09:04 Nasal Cannula 2.0 10/20/19 08:53 125/67 10/20/19 08:33 97 10/20/19 08:00 98.5 77 14 98.5 ROS: No Nausea, No Abdominal Pain, No Increase Cough General: Alert Lungs: Clear Cardiovascular: S1, S2 Abdomen: Soft, Non-tender Neuro Exam: Alert Extremities: No Edema Skin: Warm Medications Active Scripts Medications Dose Route/Sig Max Daily Dose Days Date Category Sucralfate 1 Gm Tablet 1 Gm PO BID 10/16/19 Reported Ventolin Hfa Inhaler (Albuterol Sulfate) 18 Gm Hfa.aer.ad 2 Puff INH Q4HRS PRN 10/16/19 Reported Spironolactone 25 Mg Tablet 0.5 Tab PO DAILY 10/16/19 Reported Ranexa (Ranolazine) 1,000 Mg Tab.er.12h 1 Tab PO BID 30 10/16/19 Reported Omeprazole 40 Mg Capsule.dr 1 Cap PO DAILY 10/16/19 Reported Meloxicam 7.5 Mg Tablet 1 Tab PO DAILY PRN 30 10/16/19 Reported Ketoconazole 15 Gm Cream..g. 1 Katharina TP BID 10/16/19 Reported Zetia (Ezetimibe) 10 Mg Tablet 1 Tab PO DAILY 30 10/16/19 Reported Jakafi (Ruxolitinib Phosphate) 10 Mg Tablet 1 Tab PO BID 30 10/16/19 Reported Atorvastatin Calcium 40 Mg Tablet 80 Mg PO DAILY 10/16/19 Reported Zofran Odt (Ondansetron) 4 Mg Tab.rapdis 1 Tab SL Q6HRS PRN 01/31/17 Rx Percocet 5-325 Mg Tablet (Oxycodone/Acetaminophen) 1 Each Tablet 1 Tab PO Q6-8HRS PRN 01/31/17 Rx Ventolin Hfa Inhaler (Albuterol Sulfate) 18 Gm Hfa.aer.ad 18 Gm IH 03/03/14 Reported Symbicort 160-4.5 Mcg Inhaler (Budesonide/Formoterol Fumarate) 10.2 Gm Hfa.aer.ad 10.2 Gm IH BID 03/03/14 Reported Oxybutynin Chloride 5 Mg Tablet 2.5 Mg PO PRN DAILY 03/03/14 Reported Nitrostat (Nitroglycerin) 0.4 Mg Tab.subl 0.4 Mg SL 03/03/14 Reported Gabapentin 600 Mg Tablet 600 Mg PO BID 03/03/14 Reported Cyclobenzaprine Hcl 10 Mg Tablet 10 Mg PO 03/03/14 Reported Aspirin 81 Mg Tab.chew 81 Mg PO DAILY 03/03/14 Reported Impression . IMPRESSION: 1. Acute on chronic respiratory failure secondary to rib fracture, mild acute exacerbation of chronic obstructive pulmonary disease. She has tiny left pleural effusion. 2. Abnormal CT of the chest. 3. Chronic obstructive pulmonary disease with mild acute exacerbation. 4. Obstructive sleep apnea-hypopnea syndrome. 5. History of congestive heart failure. 6. Status post fall with rib fractures. 7. Spleen laceration. 8. Ex-smoker. Plan . RESP STATUS IS COMPENSATED D/C PLANNING IN PLACE IS FOLLOW UP IN MY OFFICE IN 6-8 WEEKS INFORMED PT OF IMPORTANCE OF IS PAIN MANAGEMENT JAYCE OLVERA MD Oct 20, 2019 10:02
--- NOTE | 2019-10-20 10:39 | NUR ---
SW following. Chart reviewed, discussed with RN. ROBERT met with pt to determine SNU pt would like to go to. Pt would like referral sent to [facility] (ph:[phone], fax: [phone]). ROBERT phoned and faxed SNU referral to [facility]. Awaiting acceptance decision. Anticipate possible discharge today. RN notified.
[2019-10-20 12:00] VITALS: BP 91/46
--- NOTE | 2019-10-20 14:42 | NUR ---
[facility] has accepted pt pending if pt can bring the following meds from home; Jakafi, Ventolin, Symbacort, Ranexa (1 bottle until PP can get tomorrow). SW met with pt to discuss, pt agreed and would call her granddaughter to arrange. SW awaiting for confirmation of these meds. No discharge orders in chart yet. SW will continue to follow. EDDIE notified. Addendum: 10/20/19 at 1608 by [place] Pt is able to have medications requested from home. SW needing discharge orders before pt can go to [facility]. ROBERT not able to reach Dr. Polk. Anticipate discharge to [facility] tomorrow (10/21/19). RN notified.
[2019-10-20 15:49] VITALS: BP 104/53
[2019-10-20 20:00] VITALS: BP 111/63
[2019-10-20] MEDS: ATORVASTATIN CALCIUM 40 MG TABLET. PO SCH (20:55)
[2019-10-20] MEDS: PATCH REMOVAL. MC SCH (20:59)
[2019-10-20 23:33] VITALS: BP 117/69
[2019-10-21 04:00] VITALS: BP 143/80
[2019-10-21] MEDS: oxyCODONE/APAP 5/325 1 TAB TABLET PO PRN (05:38)
[2019-10-21] MEDS: RUXOLITINIB PHOSPHATE 10 MG PO SCH (06:08)
[2019-10-21] MEDS: IPRATRPIUM/ALBUTEROL 0.5/2.5MG 3 ML NEBU. NEB SCH ×2 (07:12→12:28)
[2019-10-21] MEDS: BUDESONIDE 0.5 MG/2 ML NEBU. NEB SCH (07:12)
[2019-10-21 08:00] VITALS: BP 112/59
[2019-10-21] MEDS: LIDOCAINE (700MG/PATCH) PATCH. TD SCH (08:11)
[2019-10-21] MEDS: PANTOPRAZOLE 40 MG TABLET.DR. PO SCH (08:12)
[2019-10-21] MEDS: CYCLOBENZAPRINE 10 MG TABLET. PO SCH ×2 (08:12→13:25)
[2019-10-21] MEDS: EZETIMIBE 10 MG TABLET. PO SCH (08:12)
[2019-10-21] MEDS: GABAPENTIN 300 MG CAPSULE. PO SCH (08:13)
[2019-10-21] MEDS: SUCRALFATE 1 GM TABLET. PO SCH (08:14)
[2019-10-21] MEDS: RANOLAZINE 500 MG TAB.ER.12H PO SCH (08:14)
[2019-10-21] MEDS: SPIRONOLACTONE 25 MG TABLET PO SCH (08:17)
[2019-10-21] MEDS: KETOCONAZOLE 2% TOPICAL CREAM 15GM TUBE. TP SCH (08:18)
--- NOTE | 2019-10-21 08:27 | PDOC ---
PULMONARY PROGRESS NOTES Subjective PT WITH PAIN AT TIMES NO INCREASE SOA Vitals Vital Signs Date Time Temp Pulse Resp B/P (MAP) Pulse Ox O2 Delivery O2 Flow Rate FiO2 10/21/19 08:14 74 143/80 10/21/19 07:21 16 Room Air 10/21/19 07:12 93 2.0 10/21/19 04:00 98.1 98.1 ROS: No Nausea, No Abdominal Pain, No Increase Cough General: Alert Lungs: Clear Cardiovascular: S1, S2 Abdomen: Soft, Non-tender Neuro Exam: Alert Extremities: No Edema Skin: Warm Medications Active Scripts Medications Dose Route/Sig Max Daily Dose Days Date Category Sucralfate 1 Gm Tablet 1 Gm PO BID 10/16/19 Reported Ventolin Hfa Inhaler (Albuterol Sulfate) 18 Gm Hfa.aer.ad 2 Puff INH Q4HRS PRN 10/16/19 Reported Spironolactone 25 Mg Tablet 0.5 Tab PO DAILY 10/16/19 Reported Ranexa (Ranolazine) 1,000 Mg Tab.er.12h 1 Tab PO BID 30 10/16/19 Reported Omeprazole 40 Mg Capsule.dr 1 Cap PO DAILY 10/16/19 Reported Meloxicam 7.5 Mg Tablet 1 Tab PO DAILY PRN 30 10/16/19 Reported Ketoconazole 15 Gm Cream..g. 1 Katharina TP BID 10/16/19 Reported Zetia (Ezetimibe) 10 Mg Tablet 1 Tab PO DAILY 30 10/16/19 Reported Jakafi (Ruxolitinib Phosphate) 10 Mg Tablet 1 Tab PO BID 30 10/16/19 Reported Atorvastatin Calcium 40 Mg Tablet 80 Mg PO DAILY 10/16/19 Reported Zofran Odt (Ondansetron) 4 Mg Tab.rapdis 1 Tab SL Q6HRS PRN 01/31/17 Rx Percocet 5-325 Mg Tablet (Oxycodone/Acetaminophen) 1 Each Tablet 1 Tab PO Q6-8HRS PRN 01/31/17 Rx Ventolin Hfa Inhaler (Albuterol Sulfate) 18 Gm Hfa.aer.ad 18 Gm IH 03/03/14 Reported Symbicort 160-4.5 Mcg Inhaler (Budesonide/Formoterol Fumarate) 10.2 Gm Hfa.aer.ad 10.2 Gm IH BID 03/03/14 Reported Oxybutynin Chloride 5 Mg Tablet 2.5 Mg PO PRN DAILY 03/03/14 Reported Nitrostat (Nitroglycerin) 0.4 Mg Tab.subl 0.4 Mg SL 03/03/14 Reported Gabapentin 600 Mg Tablet 600 Mg PO BID 03/03/14 Reported Cyclobenzaprine Hcl 10 Mg Tablet 10 Mg PO 03/03/14 Reported Aspirin 81 Mg Tab.chew 81 Mg PO DAILY 03/03/14 Reported Impression . IMPRESSION: 1. Acute on chronic respiratory failure secondary to rib fracture, mild acute exacerbation of chronic obstructive pulmonary disease. She has tiny left pleural effusion. 2. Abnormal CT of the chest. 3. Chronic obstructive pulmonary disease with mild acute exacerbation. 4. Obstructive sleep apnea-hypopnea syndrome. 5. History of congestive heart failure. 6. Status post fall with rib fractures. 7. Spleen laceration. 8. Ex-smoker. Plan . RESP STATUS IS COMPENSATED D/C PLANNING IN PLACE IS FOLLOW UP IN MY OFFICE IN 6-8 WEEKS INFORMED PT OF IMPORTANCE OF IS PAIN MANAGEMENT JAYCE OLVERA MD Oct 21, 2019 08:27
[2019-10-21 12:00] VITALS: BP 101/64
--- NOTE | 2019-10-21 12:38 | SNU/HH DC ---
DISCHARGE ORDERS DISCHARGE INFORMATION: FINAL DIAGNOSIS Problems Medical Problems: (1) Metatarsal bone fracture Status: Acute CONDITION ON DISCHARGE: Stable CODE STATUS: Code Status: Full RETIREMENT: SNF STAY <30 DAYS: Yes HOSPICE: HOSPICE: No HOSPICE EVAL & TREAT: No LTAC: ADMIT TO LTAC: No POST DISCHARGE ORDERS: ACTIVITY ORDERS: Resume previous activity DIET AFTER DISCHARGE: ADA TREATMENT/EQUIPMENT ORDERS: Physical Therapy For: Evalulation/Treatment Occupational Therapy For: Evaluation/Treatment DISCHARGE MEDICATIONS: Home Meds Active Scripts Lidocain/Me-Salicyl/Caps/Menth (MEDI-PATCH WITH LIDOCAINE) 1 Each Adh..patch, 1 EACH TP DAILY for pain for 14 Days, #14 PATCH Prov:LILIAM GIL MD 10/18/19 Oxycodone/Apap 5-325 (PERCOCET 5-325 MG TABLET ) 1 Each Tablet, 1 TAB PO Q6- 8HRS PRN for PAIN, #30 TAB Prov:LILIAM GIL MD 10/18/19 Cyclobenzaprine Hcl (CYCLOBENZAPRINE HCL) 10 Mg Tablet, 10 MG PO TID PRN PRN for BREAKTHROUGH PAIN, #30 TAB Prov:LILIAM GIL MD 10/18/19 Ondansetron (ZOFRAN ODT) 4 Mg Tab.rapdis, 1 TAB SL Q6HRS PRN for NAUSEA, #20 TAB Prov:SALOME SHI MD 01/31/17 Reported Medications Sucralfate (SUCRALFATE) 1 Gm Tablet, 1 GM PO BID for Ulcers, TAB 10/16/19 Albuterol Sulfate (VENTOLIN HFA INHALER) 18 Gm Hfa.aer.ad, 2 PUFF INH Q4HRS PRN for SHORTNESS OF BREATH, INHALER 0 Refills 10/16/19 Spironolactone (SPIRONOLACTONE) 25 Mg Tablet, 0.5 TAB PO DAILY for water pill, #90 TAB 1 Refill 10/16/19 Ranolazine (RANEXA) 1,000 Mg Tab.er.12h, 1 TAB PO BID for chest pain for 30 Days, #60 TAB 0 Refills 10/16/19 Omeprazole (OMEPRAZOLE) 40 Mg Capsule.dr, 1 CAP PO DAILY for stomach, #30 CAP 3 Refills 10/16/19 Ketoconazole (KETOCONAZOLE) 15 Gm Cream..g., 1 TAE TP BID for rash, #60 GM 1 Refill 10/16/19 Ezetimibe (ZETIA) 10 Mg Tablet, 1 TAB PO DAILY for unknown for 30 Days, #30 TAB 0 Refills 10/16/19 Ruxolitinib Phosphate (JAKAFI) 10 Mg Tablet, 1 TAB PO BID for platelets for 30 Days, #60 TAB 0 Refills 10/16/19 Atorvastatin Calcium (ATORVASTATIN CALCIUM) 40 Mg Tablet, 80 MG PO DAILY for FOR CHOLESTEROL, #30 TAB 0 Refills 10/16/19 Albuterol Sulfate (VENTOLIN HFA INHALER) 18 Gm Hfa.aer.ad, 18 GM IH 03/03/14 Budesonide/Formoterol Fumarate (SYMBICORT 160-4.5 MCG INHALER) 10.2 Gm Hfa.aer.ad, 10.2 GM IH BID 03/03/14 Oxybutynin Chloride (OXYBUTYNIN CHLORIDE) 5 Mg Tablet, 2.5 MG PO PRN DAILY 03/03/14 Nitroglycerin (NITROSTAT) 0.4 Mg Tab.subl, 0.4 MG SL 03/03/14 Gabapentin (GABAPENTIN) 600 Mg Tablet, 600 MG PO BID 03/03/14 Discontinued Reported Medications Meloxicam (MELOXICAM) 7.5 Mg Tablet, 1 TAB PO DAILY PRN for PAIN for 30 Days, #30 TAB 0 Refills 10/16/19 Aspirin (ASPIRIN) 81 Mg Tab.chew, 81 MG PO DAILY, TAB.CHEW 03/03/14 Zolpidem Tartrate (ZOLPIDEM TARTRATE) 10 Mg Tablet, 10 MG PO DAILY 03/03/14 Lansoprazole (PREVACID) 30 Mg Capsule.dr, 30 MG PO DAILY 03/03/14 Potassium Chloride (POTASSIUM CHLORIDE) 10 Meq Tablet.er, 10 MEQ PO DAILY 03/03/14 Clopidogrel Bisulfate (PLAVIX) 75 Mg Tablet, 75 MG PO DAILY 03/03/14 Niacin (NIASPAN) 500 Mg Tab.er.24h, 500 MG PO DAILY 03/03/14 Meclizine Hcl (MECLIZINE HCL) 25 Mg Tab.chew, 25 MG PO PRN DAILY, TAB.CHEW 03/03/14 Losartan Potassium (LOSARTAN POTASSIUM) 50 Mg Tablet, 50 MG PO DAILY 03/03/14 Lidocaine (LIDODERM) 700 Mg Adh..patch, 700 MG TP DAILY 03/03/14 Hydroxyzine Hcl (HYDROXYZINE HCL) 25 Mg Tablet, 25 MG PO 03/03/14 Hydroxyurea (HYDROXYUREA) 500 Mg Capsule, 500 MG PO BID 03/03/14 Furosemide (FUROSEMIDE) 20 Mg Tablet, 20 MG PO DAILY 03/03/14 Carvedilol (COREG) 25 Mg Tablet, 25 MG PO BID 03/03/14 Sucralfate (CARAFATE) 1 Gm Tablet, 1 GM PO BID 03/03/14 Petrolat,Wht/Min Oil/Sod Chl (ARTIFICIAL TEAR OINTMENT) 3.5 Gm Oint...g., 3.5 GM OP 03/03/14 MORIS HERNANDEZ III DO Oct 21, 2019 12:38
--- NOTE | 2019-10-21 12:58 | NUR ---
ROBERT following. Discussed with RN. Pt being discharged to [facility] today, SW faxed discharge paperwork. [facility] transport to take pt at around 1445. RN notified.
--- NOTE | 2019-10-21 14:04 | NUR ---
Discharge instructions reviewed with patient, report called to [facility] to [facility] @ ext. [phone]. Transport will pick patient up at 1445pm.
--- NOTE | 2019-10-21 21:49 | DS ---
DATE OF DISCHARGE: 10/21/2019 ADMISSION DIAGNOSIS: Fall with rib fractures and splenic laceration. DISCHARGE DIAGNOSES: Resolving fall, resolving splenic laceration, resolving left-sided rib fractures. HOSPITAL COURSE: The patient is a pleasant 68-year-old female who fell. She suffered rib fractures and a splenic laceration. We admitted her, gave pain management, physical therapy and occupational therapy. Today, she is at her baseline. PHYSICAL EXAMINATION: GENERAL: She was up in the chair, smiling, talking on the phone. HEART: Heart tones were normal. LUNGS: Clear. EXTREMITIES: Showed no edema. PSYCHIATRIC: She is stable. PLAN: To discharge to [facility]. DISPOSITION: Skilled. ACTIVITY: As tolerated. DIET: Low sodium. MEDICATIONS: Please see the MRAD. TOTAL TIME: 32 minutes. MORIS HERNANDEZ DO DR: RADHA/eun JOB#: [id number] / [id number]
== END 2019-10-21 15:34 | DRG 183 ==
LOC: ER 18:34 → 1 WEST ICU 20:00 → 4 NORTH 10-18 12:15
PROVIDERS: ADMIT Internal Medicine; ATTEND Internal Medicine
PROC: 5A09357 Assistance with Respiratory Ventilation, Less than 24 Consecutive Hours, Continuous Positive Airway Pressure (ICD-10-PCS; 2019-10-17)
PROC: 5A09357 Assistance with Respiratory Ventilation, Less than 24 Consecutive Hours, Continuous Positive Airway Pressure (ICD-10-PCS; 2019-10-19)
PROC: 5A09357 Assistance with Respiratory Ventilation, Less than 24 Consecutive Hours, Continuous Positive Airway Pressure (ICD-10-PCS; 2019-10-20)
PROC: 5A09357 Assistance with Respiratory Ventilation, Less than 24 Consecutive Hours, Continuous Positive Airway Pressure (ICD-10-PCS; principal; 2019-10-21)
DX: S22.42XA Multiple fractures of ribs, left side, initial encounter for closed fracture (principal); J96.20 Acute and chronic respiratory failure, unspecified whether with hypoxia or hypercapnia; S36.039A Unspecified laceration of spleen, initial encounter; S92.356A Nondisplaced fracture of fifth metatarsal bone, unspecified foot, initial encounter for closed fracture; E78.00 Pure hypercholesterolemia, unspecified; E78.5 Hyperlipidemia, unspecified; E89.0 Postprocedural hypothyroidism; G47.33 Obstructive sleep apnea (adult) (pediatric); I11.0 Hypertensive heart disease with heart failure; I25.10 Atherosclerotic heart disease of native coronary artery without angina pectoris; I50.9 Heart failure, unspecified; J43.9 Emphysema, unspecified; W01.190A Fall on same level from slipping, tripping and stumbling with subsequent striking against furniture, initial encounter; Z96.659 Presence of unspecified artificial knee joint; Z79.82 Long term (current) use of aspirin; Z86.73 Personal history of transient ischemic attack (TIA), and cerebral infarction without residual deficits; Z87.891 Personal history of nicotine dependence; Z90.710 Acquired absence of both cervix and uterus; Z99.81 Dependence on supplemental oxygen; Y93.89 Activity, other specified; Y92.89 Other specified places as the place of occurrence of the external cause; Y99.8 Other external cause status; Z88.2 Allergy status to sulfonamides; Z88.8 Allergy status to other drugs, medicaments and biological substances
CPT/HCPCS: 36415; 70450; 71250; 72125; 73630; 74176; 80048; 80053; 81001; 83880; 84484; 85025; 85610; 87086; 90471; 90686; 94640; 94660; 94760; 96374; 96375; G0238; J2270; J2405; J3010; J7620; J7626; 97530; 97535; 99285-25; G0378

== ENCOUNTER → 2020-02-04 | Outpatient (CLI) | payer MEDICARE, OTHER ==
[~2020-02-04] MED LIST changes: +ATOR40TA59 PO; +EZET10TA20 PO; +KETO15CR2 TP; +LIDO1ADH4 TP; +MELO7.5T29 PO; +OMEP40CA45 PO; -POTA10TA12 PO; +POTASSIUM CHLO10 ME1 PO; +RANO10002 PO; +RUXO10TA PO; +SPIR25TA5 PO; +SUCR1TAB PO; +VENTOLIN HFA18 GM INH
[2020-02-04 10:05] LABS: ALBUMIN 3.6 g/dL (3.4-5.0); ALBUMIN/GLOBULIN RATIO 0.8 (1.0-1.7); CALCIUM 9.2 mg/dL (8.5-10.1); CREATININE 0.9 mg/dL (0.6-1.0); GFR 75.6; POTASSIUM 4.3 mmol/L (3.5-5.1); TOTAL BILIRUBIN 0.5 mg/dL (0.2-1.0); TOTAL PROTEIN 7.9 g/dL (6.4-8.2)
[2020-02-04 10:06] LABS: CHOLESTEROL/HDL RATIO 1.9
== END | disposition home or self-care (01) ==
LOC: LAB 09:16
PROVIDERS: ATTEND Internal Medicine Cardiovascular Disease
DX: Z01.419 Encounter for gynecological examination (general) (routine) without abnormal findings (principal); Z11.3 Encounter for screening for infections with a predominantly sexual mode of transmission; E78.00 Pure hypercholesterolemia, unspecified
CPT/HCPCS: 36415; 80053; 80061; 83721

== ENCOUNTER → 2020-05-31 | Outpatient (CLI) | payer OTHER ==
[2020-05-31 11:38] LABS: BASO % 1 % (0-3); EOS # 0.1 x10^3/uL (0.0-0.7); EOS % 1 % (0-3); HEMATOCRIT 38.8 % (36.0-47.0); HEMOGLOBIN 12.6 g/dL (12.0-15.5); LYMPH # 0.9 x10^3/uL (1.0-4.8); LYMPH % 13 % (24-48); MEAN CORPUSCULAR HEMOGLOBIN 27 pg (25-35); MEAN CORPUSCULAR HGB CONC 32 g/dL (31-37); MEAN CORPUSCULAR VOLUME 84 fL (79-100); MONO # 0.7 x10^3/uL (0.0-1.1); MONO % 10 % (0-9); NEUT % 75 % (31-73); PLATELET COUNT 647 x10^3/uL (140-400); RED BLOOD COUNT 4.63 x10^6/uL (3.50-5.40); RED CELL DISTRIBUTION WIDTH 19.7 % (11.5-14.5); WHITE BLOOD COUNT 6.7 x10^3/uL (4.0-11.0)
[2020-05-31 11:53] LABS: ALBUMIN 3.8 g/dL (3.4-5.0); ALBUMIN/GLOBULIN RATIO 0.9 (1.0-1.7); CALCIUM 9.2 mg/dL (8.5-10.1); CREATININE 1.1 mg/dL (0.6-1.0); GFR 59.9; POTASSIUM 4.2 mmol/L (3.5-5.1); TOTAL BILIRUBIN 0.4 mg/dL (0.2-1.0); TOTAL PROTEIN 8.1 g/dL (6.4-8.2)
== END | disposition home or self-care (01) ==
LOC: LAB 10:44
PROVIDERS: ATTEND Internal Medicine Hematology & Oncology
DX: D45 Polycythemia vera (principal)
CPT/HCPCS: 36415; 80053; 85025

== ENCOUNTER → 2020-05-31 | Outpatient (CLI) | payer OTHER ==
--- NOTE | 2020-05-31 14:18 | RAD ---
BILATERAL SCREENING MAMMOGRAM, 3-D History: Routine screening. Comparison: 06/02/2019, 702 118, 05/28/2017, 05/24/2016, 05/23/2015. Technique: MLO and CC digital tomosynthesis (3D) images obtained. Radiologist reviewed these images on dedicated workstation. Findings: Breast Tissue Density B : There are scattered areas of fibroglandular density. There are no dominant masses, suspicious microcalcifications, or architectural distortion. Left axillary level pacemaker device obscures evaluation on the MLO view. IMPRESSION: No mammographic evidence of malignancy. Recommend routine screening. BI-RADS category 1: Negative. The images were reviewed with computer-aided detection. Patient information is entered into reminder system with a target due date for the next screening mammogram. Mammography is the most sensitive method for finding small breast cancers, but it does not detect them all and is not a substitute for careful clinical examination. A negative mammogram does not negate a clinically suspicious finding and should not result in delay in biopsying a clinically suspicious abnormality. "Our facility is accredited by the [employer] [place] [employer] Mammography Program." Electronically signed by: Hamlet Alvarado MD (05/31/2020 2:15 PM) [email or web address]
== END | disposition home or self-care (01) ==
LOC: MAMMO 10:56
PROVIDERS: ATTEND Internal Medicine
DX: Z12.31 Encounter for screening mammogram for malignant neoplasm of breast (principal)
CPT/HCPCS: 77063; 77067

== ENCOUNTER → 2020-06-22 | Outpatient (CLI) | payer OTHER ==
[~2020-06-22] MED LIST changes: +CEPH-264 PO
[2020-06-22 11:24] LABS: BASO % 0 % (0-3); EOS # 0.1 x10^3/uL (0.0-0.7); EOS % 1 % (0-3); HEMATOCRIT 37.1 % (36.0-47.0); HEMOGLOBIN 12.2 g/dL (12.0-15.5); LYMPH # 0.6 x10^3/uL (1.0-4.8); LYMPH % 10 % (24-48); MEAN CORPUSCULAR HEMOGLOBIN 28 pg (25-35); MEAN CORPUSCULAR HGB CONC 33 g/dL (31-37); MEAN CORPUSCULAR VOLUME 84 fL (79-100); MONO # 0.7 x10^3/uL (0.0-1.1); MONO % 11 % (0-9); NEUT # 4.8 x10^3/uL (1.8-7.7); NEUT % 78 % (31-73); PLATELET COUNT 485 x10^3/uL (140-400); RED BLOOD COUNT 4.39 x10^6/uL (3.50-5.40); RED CELL DISTRIBUTION WIDTH 19.8 % (11.5-14.5); WHITE BLOOD COUNT 6.2 x10^3/uL (4.0-11.0)
[2020-06-22 11:44] LABS: ALBUMIN 3.5 g/dL (3.4-5.0); ALBUMIN/GLOBULIN RATIO 0.9 (1.0-1.7); CALCIUM 8.9 mg/dL (8.5-10.1); GFR 66.9; TOTAL BILIRUBIN 0.3 mg/dL (0.2-1.0); TOTAL PROTEIN 7.3 g/dL (6.4-8.2)
== END | disposition home or self-care (01) ==
LOC: LAB 10:36
PROVIDERS: ATTEND Internal Medicine Hematology & Oncology
DX: D45 Polycythemia vera (principal)
CPT/HCPCS: 36415; 80053; 85025

== ENCOUNTER 2020-07-29 14:55 | Emergency (ER) | payer OTHER ==
[~2020-07-29] VITALS: Ht 165.1 cm; Wt 93.0 kg
[~2020-07-29 14:55] MED LIST changes: -CEPH-264 PO
[2020-07-29 15:10] VITALS: BP 149/80
[2020-07-29] MEDS ORDERED: LIDOCAINE 1% Multi-Dose 20 ML VIAL. INJ ONE (15:30)
--- NOTE | 2020-07-29 15:57 | PHYS DOC ---
Past Medical History Past Medical History: Asthma, CHF, COPD, High Cholesterol, Hypertension, [place], Pneumonia, Stroke, Other Additional Past Medical Histor: EMPHYSEMA Past Surgical History: Hysterectomy, Knee Replacement, Tonsillectomy, Other Additional Past Surgical Histo: ICD,carotid,trach,hernia repair,lypoma removals,L ANKLE & KNEE FUSIONS Smoking Status: Former Smoker Alcohol Use: None Drug Use: None General Adult EDM: Chief Complaint: LACERATION/AVULSION HPI: HPI: Patient is a 69 year old Female who presents with last night around midnight she was in the bathroom and she lost her balance and fell between the toilet and the shower. She states that she did hit her head but did not lose consciousness but she stated that she saw " stars". She denies any neck pain or headache or dizziness, chest pain, shortness of air, fever, vision changes, abdominal pain, nausea, vomiting, diarrhea. She states that as she fell her right elbow went up against a screw in her walker causing a 1 inch laceration. Edges are approximated and it only bleeds when she bends her elbow because it comes open. Range of motion of the elbow. She states that EMS came and told her that she needed stitches but she did not have a ride to the hospital. She states she did not want to go by ambulance. She also states that she fell on her right knee. Range of motion of her right knee is limited due to pain. 1+ swelling. No deformity. Patient is ambulatory with her walker. She is alert and oriented x4. Speaks in full complete sentences. No new focal weaknesses. Patient states she has been taking Advil for her pain. She denies being on blood thinners. She rates her nonradiating pain a 5 out of 10. Patient has a history of pneumonia, emphysema, hysterectomy, knee replacement, tonsillectomy, hyp ertension, [place], high cholesterol, CHF, COPD, asthma, stroke. Patient states her last tetanus shot was a couple months ago. Review of Systems: Review of Systems: Constitutional: Denies fever or chills. [] Eyes: Denies change in visual acuity. [] HENT: Denies nasal congestion or sore throat. Fall and hit her head. [] Respiratory: Denies cough or shortness of breath. [] Cardiovascular: Denies chest pain or edema. [] GI: Denies abdominal pain, nausea, vomiting, bloody stools or diarrhea. [] : Denies dysuria. [] Musculoskeletal: Denies back pain or right elbow, right knee joint pain. [] Integument: Denies rash. Right elbow laceration [] Neurologic: Denies headache, focal weakness or sensory changes. [] Endocrine: Denies polyuria or polydipsia. [] Lymphatic: Denies swollen glands. [] Psychiatric: Denies depression or anxiety. [] Heart Score: Risk Factors: Risk Factors: DM, Current or recent (<one month) smoker, HTN, HLP, family history of CAD, obesity. Risk Scores: Score 0 - 3: 2.5% MACE over next 6 weeks - Discharge Home Score 4 - 6: 20.3% MACE over next 6 weeks - Admit for Clinical Observation Score 7 - 10: 72.7% MACE over next 6 weeks - Early Invasive Strategies Current Medications: Current Medications Medications (Trade) Dose Ordered Sig/Junior Start Time Stop Time Status Last Admin Dose Admin Lidocaine HCl (Lidocaine 1% 20ml Vial) 20 ml 1X ONCE 07/29/20 15:30 07/29/20 15:35 DC Allergies: Allergies: Allergies Coded Allergies Type Severity Reaction Last Updated Verified JU Inhibitors Allergy Severe ANAPHYLAXIS 09/13/16 Yes Iodine and Iodide Containing Produc Allergy Severe PT STATES CPR FOLLOWING IODINE INJECTION AT [facility] 12/24/18 Yes levofloxacin Allergy Severe ANAPHYLAXIS 09/13/16 Yes Sulfa (Sulfonamide Antibiotics) Allergy Intermediate RASH 09/13/16 Yes celecoxib Allergy Intermediate ANAPHYLAXIS 10/16/19 Yes digoxin Allergy Intermediate 01/31/17 Yes doxycycline Allergy Intermediate RASH 09/13/16 Yes hydrochlorothiazide Allergy Intermediate 01/31/17 Yes hydrocodone Allergy Intermediate 01/31/17 Yes lisinopril Allergy Intermediate 01/31/17 Yes nortriptyline Allergy Intermediate STOMACH UPSET 12/24/18 Yes oxycodone Allergy Intermediate ITCHING ONLY WHEN TAKING HIGH DOSES 10/16/19 Yes pentazocine Allergy Intermediate RASH 09/13/16 Yes Physical Exam: PE: Constitutional: Well developed, well nourished, no acute distress, non-toxic appearance. [] HENT: Normocephalic, atraumatic, bilateral external ears normal, oropharynx moist, no oral exudates, nose normal. [] Eyes: PERRLA, EOMI, conjunctiva normal, no discharge. [] Neck: Normal range of motion, no tenderness, supple, no stridor. [] Cardiovascular:Heart rate regular rhythm, no murmur [] Lungs & Thorax: Bilateral breath sounds clear to auscultation [] Abdomen: Bowel sounds normal, soft, no tenderness, no masses, no pulsatile m asses. [] Skin: Warm, dry, no erythema, no rash. Right elbow laceration [] Back: No tenderness, no CVA tenderness. [] Extremities: Right elbow tenderness, no cyanosis, no clubbing, right knee ROM not intact, right knee 1+ edema. [] Neurologic: Alert and oriented X 3, normal motor function, normal sensory function, no focal deficits noted. [] Psychologic: Affect normal, judgement normal, mood normal. [] Current Patient Data: Vital Signs: Vital Signs Date Time Temp Pulse Resp B/P (MAP) Pulse Ox O2 Delivery O2 Flow Rate FiO2 07/29/20 15:10 98.7 69 15 149/80 (103 93 Room Air 98.7 EKG: EKG: [] Radiology/Procedures: Radiology/Procedures: [] Impression: [facility] [address] [place] [address] IMAGING REPORT Signed PATIENT: EMERY VOGT RACCOUNT: [id number] : 1950 LOCATION: ER AGE: 69 SEX: F EXAM STATUS: REG ER ORD. PHYSICIAN: NAMAN FLORES APRN REASON: laceration, fall PROCEDURE: ELBOW RIGHT 3V Exam: Right elbow 3 views INDICATION: Laceration, for TECHNIQUE: Frontal, lateral and oblique views of the right elbow Comparisons: None FINDINGS: Bone mineralization is normal. There is soft tissue swelling overlying the olecranon. Small ossific linear fragment noted just posterior to the olecranon on lateral view. Joint spaces are well-maintained. IMPRESSION: Possible small avulsion or chip fracture at the olecranon seen best on lateral view with surrounding soft tissue swelling. Electronically signed by: Philomena Herring MD (07/29/2020 4:28 PM) [id number] DICTATED and SIGNED BY: PHILOMENA HERRING MD DATE: 07/29/208 [facility] [address] [place], [place] [id number] IMAGING REPORT Signed PATIENT: EMERY VOGT RACCOUNT: [id number] : 1950 LOCATION: ER AGE: 69 SEX: F EXAM STATUS: REG ER ORD. PHYSICIAN: NAMAN FLORES APRN REASON: fall hit head PROCEDURE: CT HEAD AND CERVICAL SPINE WO CT HEAD AND CERVICAL SPINE WO Date: 07/29/2020 3:57 PM Clinical Indication: fall hit head, pain Comparison: 10/18/2019. Technique: 5 mm axial tomographic images were obtained of the head without contrast. These were viewed on brain and bone windows. CT imaging of the cervical spine was performed without contrast. Coronal and sagittal reformatted images were performed. One or more of the following dose reduction techniques were utilized: Automated exposure control (AEC), Adjustment of mA and/or kV according to patient size, Use of iterative reconstruction technique such as ASiR, CT scan done according to ALARA and image gently/image wisely HEAD FINDINGS: Bilateral cerebellar encephalomalacia. No intra- or extra-axial mass or fluid collection. No acute hemorrhage. The ventricles are normal in size, shape, and morphology. The ingram-white matter junction is normal. The basilar cisterns are patent. The visualized paranasal sinuses are normal. The visualized portions of the orbits and globes are normal. The mastoid air cells are clear. No aggressive osseous lesion or fracture. CERVICAL SPINE FINDINGS: The cervical spine is normally aligned. No acute fracture. No aggressive lytic or blastic osseous lesion. The intervertebral disc heights are maintained. No high-grade spinal canal stenosis or neural foraminal narrowing. The thyroid gland is normal. No cervical lymphadenopathy. The visualized aerodigestive tract is unremarkable. Left apical bulla. IMPRESSION: 1. No acute intracranial process. 2. No acute osseous abnormality of the cervical spine. 3. Bilateral cerebellar encephalomalacia. Electronically signed by: Iefanyi Islas MD (07/29/2020 4:18 PM) [facility] DICTATED and SIGNED BY: IFEANYI ISLAS MD DATE: 07/29/20 1618 [facility] [address] [place] [address] IMAGING REPORT Signed PATIENT: EMERY VOGT RACCOUNT: [id number] : 1950 LOCATION: ER AGE: 69 SEX: F EXAM STATUS: REG ER ORD. PHYSICIAN: NAMAN FLORES APRN REASON: pain, fall PROCEDURE: KNEE RIGHT 3V Exam: Right knee 3 views INDICATION: Pain, fall TECHNIQUE: Frontal, lateral and oblique views of the right knee Comparisons: None FINDINGS: Bone mineralization is normal. No acute or healed fractures. There is degenerative change at the knee greatest in the medial compartment. Soft tissues are unremarkable. IMPRESSION: No acute osseous abnormality. Electronically signed by: Philomena Herring MD (07/29/2020 4:31 PM) [id number] DICTATED and SIGNED BY: PHILOMENA HERRING MD DATE: 07/29/20 1631 Course & Med Decision Making: Course & Med Decision Making Pertinent Labs and Imaging studies reviewed. (See chart for details) See HPI. No focal bony spinal tenderness with palpation. Full range of motion of her neck. No tenderness to her head or lacerations. Patient is placed on Keflex antibiotic since the laceration has been open for over 12 hours. Laceration repair Location: Right elbow Local anesthesia: Percent lidocaine Interrupted sutures/Internal sutures: 2 loose stitches 4-0 Nerve/ligament/muscle damage: None Cleaning and irrigation: Chlorhexidine and saline and no foreign bodies seen with exploration and flushing The appropriate timeout was taken. The area was prepped and draped in the usual sterile fashion. The wound was copiously irrigated with normal saline and chlorhexidine. Patient tolerated well without complication. Dressing was applied to the area follow-up education is given to observe for signs and symptoms of infection, bleeding and to follow-up promptly if these occur. Patient can return in 48 hours for a wound recheck. Sutures to be removed in 7 to 10 days. Patient is given a arm sling. Xray shows possible chip bone. I did go over care plan for this patient with Dr Bernabe who states no splint needed, only arm sling. [] Vicki Disclaimer: Vicki Disclaimer: This electronic medical record was generated, in whole or in part, using a voice recognition dictation system. Departure Departure Impression: Primary Impression: Olecranon fracture Qualified Codes: S52.021B - Displaced fracture of olecranon process without intraarticular extension of right ulna, initial encounter for open fracture type I or II Additional Impressions: Laceration Fall Qualified Codes: W19.XXXA - Unspecified fall, initial encounter Head injury Qualified Codes: S09.90XA - Unspecified injury of head, initial encounter Knee contusion Qualified Codes: S80.01XA - Contusion of right knee, initial encounter Disposition: HOME, SELF-CARE Condition: STABLE Referrals: CONNIE CARABALLO MD (PCP) GRACE CHUNG MD Patient Instructions: Elbow Fracture, Simple, Laceration Care, Adult Additional Instructions: Follow-up with orthopedics soon as possible. Your sutures need to be out in 10 days. Keep area clean and dry. Take patient as prescribed. Scripts Cephalexin (KEFLEX) 500 Mg Capsule 1 CAP PO BID for 7 Days, #14 CAP 0 Refills Prov: NAMAN FLORES APRN 07/29/20 Justicifation of Admission Dx: Justifications for Admission: Justification of Admission Dx: N/A NAMAN FLORES APRN Jul 29, 2020 15:57
--- NOTE | 2020-07-29 16:21 | RAD ---
CT HEAD AND CERVICAL SPINE WO Date: 07/29/2020 3:57 PM Clinical Indication: fall hit head, pain Comparison: 10/18/2019. Technique: 5 mm axial tomographic images were obtained of the head without contrast. These were viewed on brain and bone windows. CT imaging of the cervical spine was performed without contrast. Coronal and sagittal reformatted images were performed. One or more of the following dose reduction techniques were utilized: Automated exposure control (AEC), Adjustment of mA and/or kV according to patient size, Use of iterative reconstruction technique such as ASiR, CT scan done according to ALARA and image gently/image wisely HEAD FINDINGS: Bilateral cerebellar encephalomalacia. No intra- or extra-axial mass or fluid collection. No acute hemorrhage. The ventricles are normal in size, shape, and morphology. The ingram-white matter junction is normal. The basilar cisterns are patent. The visualized paranasal sinuses are normal. The visualized portions of the orbits and globes are normal. The mastoid air cells are clear. No aggressive osseous lesion or fracture. CERVICAL SPINE FINDINGS: The cervical spine is normally aligned. No acute fracture. No aggressive lytic or blastic osseous lesion. The intervertebral disc heights are maintained. No high-grade spinal canal stenosis or neural foraminal narrowing. The thyroid gland is normal. No cervical lymphadenopathy. The visualized aerodigestive tract is unremarkable. Left apical bulla. IMPRESSION: 1. No acute intracranial process. 2. No acute osseous abnormality of the cervical spine. 3. Bilateral cerebellar encephalomalacia. Electronically signed by: Gunnar Osborne MD (07/29/2020 4:18 PM) [facility]
--- NOTE | 2020-07-29 16:31 | RAD ---
Exam: Right elbow 3 views INDICATION: Laceration, for TECHNIQUE: Frontal, lateral and oblique views of the right elbow Comparisons: None FINDINGS: Bone mineralization is normal. There is soft tissue swelling overlying the olecranon. Small ossific linear fragment noted just posterior to the olecranon on lateral view. Joint spaces are well-maintained. IMPRESSION: Possible small avulsion or chip fracture at the olecranon seen best on lateral view with surrounding soft tissue swelling. Electronically signed by: Philomena Dunham MD (07/29/2020 4:28 PM) [id number]
--- NOTE | 2020-07-29 16:35 | RAD ---
Exam: Right knee 3 views INDICATION: Pain, fall TECHNIQUE: Frontal, lateral and oblique views of the right knee Comparisons: None FINDINGS: Bone mineralization is normal. No acute or healed fractures. There is degenerative change at the knee greatest in the medial compartment. Soft tissues are unremarkable. IMPRESSION: No acute osseous abnormality. Electronically signed by: Philomena Dunham MD (07/29/2020 4:31 PM) [id number]
[2020-07-29] MEDS ORDERED: CEPH-264 PO (16:46)
== END 2020-07-29 17:04 | disposition home or self-care (01) ==
LOC: ER 14:55
DX: S52.021B Displaced fracture of olecranon process without intraarticular extension of right ulna, initial encounter for open fracture type I or II (principal); S51.011A Laceration without foreign body of right elbow, initial encounter; S80.01XA Contusion of right knee, initial encounter; S09.90XA Unspecified injury of head, initial encounter; R51 Headache; M54.2 Cervicalgia; G93.89 Other specified disorders of brain; E78.00 Pure hypercholesterolemia, unspecified; I11.0 Hypertensive heart disease with heart failure; I50.9 Heart failure, unspecified; J44.9 Chronic obstructive pulmonary disease, unspecified; I25.2 Old myocardial infarction; Z86.73 Personal history of transient ischemic attack (TIA), and cerebral infarction without residual deficits; Z87.891 Personal history of nicotine dependence; Z91.041 Radiographic dye allergy status; Z88.1 Allergy status to other antibiotic agents; Z88.2 Allergy status to sulfonamides; Z88.5 Allergy status to narcotic agent; Z88.8 Allergy status to other drugs, medicaments and biological substances; W18.09XA Striking against other object with subsequent fall, initial encounter; Y93.89 Activity, other specified; Y99.8 Other external cause status; Y92.041 Bathroom in boarding-house as the place of occurrence of the external cause
CPT/HCPCS: 12001; 70450; 72125; 73080; 73562; 99285; J3490; A4565

== ENCOUNTER → 2020-08-02 | Outpatient (CLI) | payer OTHER ==
[2020-07-29 15:10] VITALS: BP 149/80
[~2020-08-02] MED LIST changes: +CEPH-264 PO
[2020-08-02 10:59] LABS: CREATININE 0.8 mg/dL (0.6-1.0); GFR 86.6; POTASSIUM 4.7 mmol/L (3.5-5.1)
== END | disposition home or self-care (01) ==
LOC: LAB 09:44
PROVIDERS: ATTEND Internal Medicine Cardiovascular Disease
DX: I10 Essential (primary) hypertension (principal)
CPT/HCPCS: 36415; 80048

== ENCOUNTER → 2021-03-23 | Outpatient (CLI) | payer OTHER ==
[2021-03-23 12:08] LABS: BASO # 0.1 x10^3/uL (0.0-0.2); BASO % 1 % (0-3); EOS # 0.1 x10^3/uL (0.0-0.7); EOS % 1 % (0-3); HEMATOCRIT 30.4 % (36.0-47.0); HEMOGLOBIN 10.1 g/dL (12.0-15.5); LYMPH # 0.8 x10^3/uL (1.0-4.8); LYMPH % 12 % (24-48); MEAN CORPUSCULAR HEMOGLOBIN 25 pg (25-35); MEAN CORPUSCULAR HGB CONC 33 g/dL (31-37); MEAN CORPUSCULAR VOLUME 77 fL (79-100); MONO # 0.7 x10^3/uL (0.0-1.1); MONO % 12 % (0-9); NEUT # 4.5 x10^3/uL (1.8-7.7); NEUT % 74 % (31-73); PLATELET COUNT 458 x10^3/uL (140-400); RED BLOOD COUNT 3.97 x10^6/uL (3.50-5.40); RED CELL DISTRIBUTION WIDTH 21.4 % (11.5-14.5); WHITE BLOOD COUNT 6.1 x10^3/uL (4.0-11.0)
[2021-03-23 12:17] LABS: ALBUMIN 3.7 g/dL (3.4-5.0); CREATININE 0.9 mg/dL (0.6-1.0); GFR 75.3; TOTAL BILIRUBIN 0.4 mg/dL (0.2-1.0); TOTAL PROTEIN 7.5 g/dL (6.4-8.2)
[2021-03-23 12:18] LABS: CHOLESTEROL/HDL RATIO 2.5
[2021-03-23 13:46] LABS: PLT ESTIMATE INCREASED (ADEQUATE)
[2021-03-23 13:47] LABS: ANISOCYTOSIS MOD
[2021-03-23 13:48] LABS: HYPOCHROMIA SLIGHT; OVALOCYTES FEW; POLYCHROMASIA SLIGHT; SCHISTOCYTES OCC; SPHEROCYTES OCC
== END ==
LOC: LAB 11:18
PROVIDERS: ATTEND Internal Medicine Hematology & Oncology
DX: D45 Polycythemia vera (principal)
CPT/HCPCS: 36415; 80053; 80061; 85025

== ENCOUNTER 2021-08-09 18:44 | Inpatient (IN) | payer OTHER ==
[~2021-08-09] VITALS: Ht 165.1 cm; Wt 89.0 kg
[~2021-08-09 18:44] MED LIST changes: -OMEP40CA45 PO; +OMEP40CA7 PO
--- NOTE | 2021-08-09 19:01 | PHYS DOC ---
Past Medical History Past Medical History: Asthma, CHF, COPD, High Cholesterol, Hypertension, [place], Pneumonia, Stroke, Other Additional Past Medical Histor: EMPHYSEMA Past Surgical History: Hysterectomy, Knee Replacement, Tonsillectomy, Other Additional Past Surgical Histo: ICD,carotid,trach,hernia repair,lypoma removals,L ANKLE & KNEE FUSIONS Smoking Status: Former Smoker Alcohol Use: None Drug Use: None General Adult EDM: Chief Complaint: CHEST PAIN HPI: HPI: 70-year-old female with a history of CAD, CHF presents the emergency department complaining of 2 episodes of chest pain, one happening last night and one run happening about an hour ago. She reports that she took nitroglycerin after the chest pain occurred which helped her chest pain and she states is the only thing that has helped her chest pain to this point. She reports that the chest pain is a "hardness "in her chest that does not radiate and is not affected by anything. Chest pain is intermittent. The patient denies radiation of pain, sweating, shortness of air, palpitations or dizziness. She further denies any fever, cough, diarrhea, nausea, vomiting Review of Systems: Review of Systems: Review of systems otherwise negative except for what was mentioned in the HPI Heart Score: C/O Chest Pain: Yes HEART Score for Chest Pain: HEART Score for Chest Pain Response (Comments) Value History Moderately Suspicious 1 ECG Normal 0 Age > 65 2 Risk Factors >3 Risk Factors or Hx CAD 2 Troponin >1-<3x Normal Limit 1 Total 6 Allergies: Allergies: Allergies Coded Allergies Type Severity Reaction Last Updated Verified JU Inhibitors Allergy Severe ANAPHYLAXIS 09/13/16 Yes Iodine and Iodide Containing Produc Allergy Severe PT STATES CPR FOLLOWING IODINE INJECTION AT [facility] 12/24/18 Yes levofloxacin Allergy Severe ANAPHYLAXIS 09/13/16 Yes Sulfa (Sulfonamide Antibiotics) Allergy Intermediate RASH 09/13/16 Yes celecoxib Allergy Intermediate ANAPHYLAXIS 10/16/19 Yes digoxin Allergy Intermediate 01/31/17 Yes doxycycline Allergy Intermediate RASH 09/13/16 Yes hydrochlorothiazide Allergy Intermediate 01/31/17 Yes hydrocodone Allergy Intermediate 01/31/17 Yes lisinopril Allergy Intermediate 01/31/17 Yes nortriptyline Allergy Intermediate STOMACH UPSET 12/24/18 Yes oxycodone Allergy Intermediate ITCHING ONLY WHEN TAKING HIGH DOSES 10/16/19 Yes pentazocine Allergy Intermediate RASH 09/13/16 Yes Physical Exam: PE: Constitutional: No acute distress, non-toxic appearance. HENT: Atraumatic, bilateral external ears normal, nose normal. Eyes: PERRLA, EOMI, conjunctiva normal, no discharge. Neck: Normal range of motion, supple, no stridor. Cardiovascular: Heart rate regular rhythm. 2+ radial pulses Lungs & Thorax: No respiratory distress, symmetrical expansion. Bilateral breath sounds clear to auscultation Abdomen: Soft, no tenderness Skin: Warm, dry. Extremities: No tenderness, no cyanosis, ROM intact, no edema. Neurologic: Alert and oriented X 3, normal motor function, normal sensory function, no focal deficits noted. GCS 15. Psychologic: Affect normal, judgment normal, mood normal. Current Patient Data: Labs: Laboratory Tests Test 08/09/21 19:38 White Blood Count 9.1 x10^3/uL (4.0-11.0) Red Blood Count 5.68 x10^6/uL (3.50-5.40) Hemoglobin 11.2 g/dL (12.0-15.5) Hematocrit 35.6 % (36.0-47.0) Mean Corpuscular Volume 63 fL (79-100) Mean Corpuscular Hemoglobin 20 pg (25-35) Mean Corpuscular Hemoglobin Concent 31 g/dL (31-37) Red Cell Distribution Width 22.9 % (11.5-14.5) Platelet Count 553 x10^3/uL (140-400) Neutrophils (%) (Auto) 79 % (31-73) Lymphocytes (%) (Auto) 10 % (24-48) Monocytes (%) (Auto) 9 % (0-9) Eosinophils (%) (Auto) 2 % (0-3) Basophils (%) (Auto) 0 % (0-3) Neutrophils # (Auto) 7.2 x10^3/uL (1.8-7.7) Lymphocytes # (Auto) 0.9 x10^3/uL (1.0-4.8) Monocytes # (Auto) 0.8 x10^3/uL (0.0-1.1) Eosinophils # (Auto) 0.2 x10^3/uL (0.0-0.7) Basophils # (Auto) 0.0 x10^3/uL (0.0-0.2) Sodium Level 139 mmol/L (136-145) Potassium Level 3.7 mmol/L (3.5-5.1) Chloride Level 102 mmol/L (98-107) Carbon Dioxide Level 31 mmol/L (21-32) Anion Gap 6 (6-14) Blood Urea Nitrogen 15 mg/dL (7-20) Creatinine 1.1 mg/dL (0.6-1.0) Estimated GFR (Cockcroft-Gault) 59.8 Glucose Level 94 mg/dL (70-99) Calcium Level 9.4 mg/dL (8.5-10.1) Troponin I Quantitative 0.073 ng/mL (0.000-0.055) HB-Lov-F-Type Natriuretic Peptide 838 pg/mL (0-124) SARS-CoV-2 Antigen (Rapid) Negative (NEGATIVE) Vital Signs: Vital Signs Date Time Temp Pulse Resp B/P (MAP) Pulse Ox O2 Delivery O2 Flow Rate FiO2 08/09/21 19:25 98.9 78 12 158/90 (112) 98 Room Air 98.9 EKG: EK: Normal sinus rhythm rate of 85, no ST-T wave changes, no ectopic beats, normal axis, normal [place], QRS, and QTc intervals. Impression: Normal EKG. interpreted by me, Flo Westfall D.O. Radiology/Procedures: Radiology/Procedures: XR CHEST 1V History: Reason: CHEST PAIN / Spl. Instructions: / History: Comparison: September 13, 2016 Findings: Mild interstitial prominence. No pleural effusion. No pneumothorax. Enlarged cardiac size, unchanged. Left-sided ICD, unchanged. Postop changes overlying the left upper chest. Impression: 1. Mild interstitial prominence, may relate to chronic interstitial changes although can be seen with mild pulmonary edema. 2. Cardiomegaly, unchanged. Electronically signed by: Delfino Vela DO (08/09/2021 8:04 PM) Course & Med Decision Making: Course & Med Decision Making Patient with heart score 6, slightly elevated troponin. Will admit to the hospital and trend troponins. Patient did not have chest pain at the time of evaluation. Patient amenable to admission and looks well clinically at this time. Departure Departure Impression: Primary Impression: Chest pain Disposition: ADMITTED INPATIENT Admitting Physician: ALE Bailey) Condition: STABLE Referrals: CONNIE CARABALLO MD (PCP) FLO WESTFALL DO Aug 09, 2021 19:01
[2021-08-09 19:50] LABS: BASO % 0 % (0-3); EOS # 0.2 x10^3/uL (0.0-0.7); EOS % 2 % (0-3); HEMATOCRIT 35.6 % (36.0-47.0); HEMOGLOBIN 11.2 g/dL (12.0-15.5); LYMPH # 0.9 x10^3/uL (1.0-4.8); LYMPH % 10 % (24-48); MEAN CORPUSCULAR HEMOGLOBIN 20 pg (25-35); MEAN CORPUSCULAR HGB CONC 31 g/dL (31-37); MEAN CORPUSCULAR VOLUME 63 fL (79-100); MONO # 0.8 x10^3/uL (0.0-1.1); MONO % 9 % (0-9); NEUT # 7.2 x10^3/uL (1.8-7.7); NEUT % 79 % (31-73); PLATELET COUNT 553 x10^3/uL (140-400); RED BLOOD COUNT 5.68 x10^6/uL (3.50-5.40); RED CELL DISTRIBUTION WIDTH 22.9 % (11.5-14.5); WHITE BLOOD COUNT 9.1 x10^3/uL (4.0-11.0)
[2021-08-09 19:58] LABS: CALCIUM 9.4 mg/dL (8.5-10.1); CREATININE 1.1 mg/dL (0.6-1.0); GFR 59.8; POTASSIUM 3.7 mmol/L (3.5-5.1)
--- NOTE | 2021-08-09 20:06 | RAD ---
XR CHEST 1V History: Reason: CHEST PAIN / Spl. Instructions: / History: Comparison: September 13, 2016 Findings: Mild interstitial prominence. No pleural effusion. No pneumothorax. Enlarged cardiac size, unchanged. Left-sided ICD, unchanged. Postop changes overlying the left upper chest. Impression: 1. Mild interstitial prominence, may relate to chronic interstitial changes although can be seen wit h mild pulmonary edema. 2. Cardiomegaly, unchanged. Electronically signed by: Delfino Vela DO (08/09/2021 8:04 PM) [facility]
[2021-08-09 20:11] LABS: PLT ESTIMATE INCREASED (ADEQUATE)
[2021-08-09 20:18] LABS: ANISOCYTOSIS MOD; HYPOCHROMIA MOD; MICROCYTOSIS MARKED; POIKILOCYTOSIS SLIGHT
[2021-08-09] MEDS ORDERED: NITROGLYCERIN SUBLINGUAL 0.4 MG BOTTLE OF 25. SL PRN (21:00)
[2021-08-09] MEDS ORDERED: ACETAMINOPHEN 325 MG TABLET. PO PRN (21:00)
[2021-08-09] MEDS ORDERED: ONDANSETRON PF 4 MG/2 ML VIAL. IVP PRN (21:00)
[2021-08-09] MEDS ORDERED: CYCLOBENZAPRINE 10 MG TABLET. PO ONE (22:30)
[2021-08-09 23:00] VITALS: BP 146/71
[2021-08-09] MEDS ORDERED: ASPIRIN 325 MG TABLET PO ONE (23:00)
[2021-08-10] MEDS ORDERED: METO25TA2 PO (00:08)
[2021-08-10] MEDS ORDERED: CYCL1DRO EACHEYE (00:08)
[2021-08-10] MEDS ORDERED: ASPI-886 PO (00:08)
[2021-08-10] MEDS ORDERED: TIZA4TAB2 PO (00:08)
[2021-08-10] MEDS ORDERED: POLY17PO29 PO (00:08)
[2021-08-10] MEDS ORDERED: LOSA25TA4 PO (00:08)
[2021-08-10] MEDS ORDERED: ACET325T9 PO (00:08)
[2021-08-10 03:00] VITALS: BP 128/72
[2021-08-10 03:02] LABS: BASO # 0.1 x10^3/uL (0.0-0.2); BASO % 1 % (0-3); EOS # 0.1 x10^3/uL (0.0-0.7); EOS % 1 % (0-3); HEMATOCRIT 33.8 % (36.0-47.0); HEMOGLOBIN 10.7 g/dL (12.0-15.5); LYMPH # 0.9 x10^3/uL (1.0-4.8); LYMPH % 13 % (24-48); MEAN CORPUSCULAR HEMOGLOBIN 20 pg (25-35); MEAN CORPUSCULAR HGB CONC 32 g/dL (31-37); MEAN CORPUSCULAR VOLUME 63 fL (79-100); MONO # 0.7 x10^3/uL (0.0-1.1); MONO % 10 % (0-9); NEUT # 5.6 x10^3/uL (1.8-7.7); NEUT % 75 % (31-73); PLATELET COUNT 509 x10^3/uL (140-400); RED BLOOD COUNT 5.41 x10^6/uL (3.50-5.40); RED CELL DISTRIBUTION WIDTH 22.1 % (11.5-14.5); WHITE BLOOD COUNT 7.5 x10^3/uL (4.0-11.0)
[2021-08-10 03:11] LABS: CALCIUM 8.9 mg/dL (8.5-10.1); CREATININE 1.2 mg/dL (0.6-1.0); GFR 54.1
[2021-08-10 07:11] VITALS: BP 156/72
--- NOTE | 2021-08-10 07:47 | PDOC1 ---
History and Physical Date of Service: DOS: DATE: 08/10/21 TIME: 07:41 Chief Complaint: Chief Complain: Chest pain History of Present Illness: HPI: History obtained from chart review, and discussion with the ED physician and the patient Patient is a 70-year-old female with past medical history of CAD, dyslipidemia, hypertension, stroke, emphysema who complains of chest pain that have been last night while she was sleeping. She describes the pain as dull like pressure that occurred suddenly while she was sleeping and woke up her up from sleep as well. She took a nitroglycerin after the pain occurred which did help her pain and she did also report some dizziness before and after her episodes. There is no radiation and she does not endorse any other symptoms. The pain will last less than 5 minutes mady quickly. Denies any diaphoresis, shortness of breath, palpitations, syncope, diarrhea or dysuria or cough or nausea vomiting. Past Medical/Surgical History: PMH/PSH: Past Medical History: Asthma, CHF, COPD, High Cholesterol, Hypertension, [place], Pneumonia, Stroke, EMPHYSEMA Past Surgical History: Hysterectomy, Knee Replacement, Tonsillectomy, ICD,carotid,trach,hernia repair,lypoma removals,L ANKLE & KNEE FUSIONS Allergies: Allergies: Coded Allergies: JU Inhibitors (Verified Allergy, Severe, ANAPHYLAXIS, 09/13/16) Iodine and Iodide Containing Produc (Verified Allergy, Severe, PT STATES CPR FOLLOWING IODINE INJECTION AT [facility], 12/24/18) levofloxacin (Verified Allergy, Severe, ANAPHYLAXIS, 09/13/16) Sulfa (Sulfonamide Antibiotics) (Verified Allergy, Intermediate, RASH, 09/13/16) celecoxib (Verified Allergy, Intermediate, ANAPHYLAXIS, 10/16/19) digoxin (Verified Allergy, Intermediate, 01/31/17) doxycycline (Verified Allergy, Intermediate, RASH, 09/13/16) hydrochlorothiazide (Verified Allergy, Intermediate, 01/31/17) hydrocodone (Verified Allergy, Intermediate, 01/31/17) lisinopril (Verified Allergy, Intermediate, 01/31/17) nortriptyline (Verified Allergy, Intermediate, STOMACH UPSET, 12/24/18) oxycodone (Verified Allergy, Intermediate, ITCHING ONLY WHEN TAKING HIGH DOSES, 10/16/19) pentazocine (Verified Allergy, Intermediate, RASH, 09/13/16) Family History: Family History: Reviewed with no relevant findings, except for breast cancer in the family Social History: Social History: Smoking Status: Former Smoker Alcohol Use: None Drug Use: None Current Medications: Current Medications Current Medications Ondansetron HCl (Zofran) 4 mg PRN Q8HRS PRN IVP NAUSEA/VOMITING 1st choice; Start 08/09/21 at 21:00; Stop 08/10/21 at 20:59 Acetaminophen (Tylenol) 650 mg PRN Q4HRS PRN PO FEVER > 100.3'F Last administered on 08/09/21at 22:49; Start 08/09/21 at 21:00; Stop 08/10/21 at 20:59 Nitroglycerin (Nitrostat) 0.4 mg PRN Q5MIN PRN SL CHEST PAIN; Start 08/09/21 at 21:00; Stop 08/10/21 at 20:59 Cyclobenzaprine HCl (Flexeril) 10 mg 1X ONCE PO Last administered on 08/09/21at 22:49; Start 08/09/21 at 22:30; Stop 08/09/21 at 22:31; Status DC Aspirin (Charo Aspirin) 325 mg 1X ONCE PO Last administered on 08/09/21at 22:49; Start 08/09/21 at 23:00; Stop 08/09/21 at 23:01; Status DC Active Scripts Active Cyclobenzaprine Hcl 10 Mg Tablet 10 Mg PO TID PRN PRN Reported Tylenol (Acetaminophen) 325 Mg Tablet 325 Mg PO PRN Q6HRS PRN Tizanidine Hcl 4 Mg Tablet 1 Tab PO PRN QHS PRN Miralax (Polyethylene Glycol 3350) 17 Gm Powd.pack 1 Pkt PO PRN DAILY PRN Toprol Xl (Metoprolol Succinate) 25 Mg Tab.er.24h 25 Mg PO DAILY Losartan Potassium 25 Mg Tablet 25 Mg PO QHS Restasis (Cyclosporine) 1 Each Droperette 1 Drop EACHEYE BID Aspirin Ec (Aspirin) 81 Mg Tablet.dr 81 Mg PO DAILY Sucralfate 1 Gm Tablet 1 Gm PO BID Ventolin Hfa Inhaler (Albuterol Sulfate) 18 Gm Hfa.aer.ad 2 Puff INH Q4HRS PRN Spironolactone 25 Mg Tablet 0.5 Tab PO DAILY Ranexa (Ranolazine) 1,000 Mg Tab.er.12h 1 Tab PO BID 30 Days Omeprazole 40 Mg Capsule.dr 1 Cap PO DAILY Zetia (Ezetimibe) 10 Mg Tablet 1 Tab PO DAILY 30 Days Jakafi (Ruxolitinib Phosphate) 10 Mg Tablet 1 Tab PO BID 30 Days Atorvastatin Calcium 40 Mg Tablet 80 Mg PO DAILY Symbicort 160-4.5 Mcg Inhaler (Budesonide/Formoterol Fumarate) 10.2 Gm Hfa.aer.ad 10.2 Gm IH BID Oxybutynin Chloride 5 Mg Tablet 5 Mg PO BID Nitrostat (Nitroglycerin) 0.4 Mg Tab.subl 0.4 Mg SL ROS: Review of Systems Review of System REVIEW OF SYSTEMS: GENERAL: Denies weakness SKIN: No bruising, hair changes or rashes. EYES: No blurred, double or loss of vision. NOSE AND THROAT: No history of nosebleeds, hoarseness or sore throat. HEART: Positive for chest pain LUNGS: Denies cough, hemoptysis, wheezing or shortness of breath. GASTROINTESTINAL: Denies changes in appetite, nausea, vomiting, diarrhea or constipation. GENITOURINARY: No history of frequency, urgency, hesitancy or nocturia. NEUROLOGIC: Denies history of numbness, tingling, or tremor. PSYCHIATRIC: No history of panic, anxiety or depression. ENDOCRINE: No history of heat or cold intolerance, polyuria or polydipsia. EXTREMITIES: Denies joint pain, pain on walking or stiffness. Physical Exam: Vital Signs: Vital Signs Date Time Temp Pulse Resp B/P (MAP) Pulse Ox O2 Delivery O2 Flow Rate FiO2 08/10/21 07:11 98.0 72 18 156/72 (100) 100 Nasal Cannula 2.0 98.0 Physcial Exam: General: Well developed, well nourished, no acute distress, well appearing HEENT: Pupils equally round and reactive to light, EOMI, no discharge, normal conjunctiva Neck: Supple, no nuchal rigidity, no JVD, trachea midline, no tenderness Cardiac: RRR, no murmurs, no gallops, no rubs Chest/Lungs: CTAB, no wheeze, no rhonchi, no crackles Abdomen: soft, non-distended, no guarding, no peritoneal signs, non-tender Back: No tenderness Extremities: no edema, pulses intact, non-tender,capillary refill <3 sec bilateral upper and lower extremities, Neuro: Alert and oriented x 4, no focal deficits, normal speech Labs: Labs: Laboratory Tests Test 08/09/21 19:38 08/10/21 01:30 White Blood Count 9.1 x10^3/uL (4.0-11.0) 7.5 x10^3/uL (4.0-11.0) Red Blood Count 5.68 x10^6/uL (3.50-5.40) 5.41 x10^6/uL (3.50-5.40) Hemoglobin 11.2 g/dL (12.0-15.5) 10.7 g/dL (12.0-15.5) Hematocrit 35.6 % (36.0-47.0) 33.8 % (36.0-47.0) Mean Corpuscular Volume 63 fL (79-100) 63 fL (79-100) Mean Corpuscular Hemoglobin 20 pg (25-35) 20 pg (25-35) Mean Corpuscular Hemoglobin Concent 31 g/dL (31-37) 32 g/dL (31-37) Red Cell Distribution Width 22.9 % (11.5-14.5) 22.1 % (11.5-14.5) Platelet Count 553 x10^3/uL (140-400) 509 x10^3/uL (140-400) Neutrophils (%) (Auto) 79 % (31-73) 75 % (31-73) Lymphocytes (%) (Auto) 10 % (24-48) 13 % (24-48) Monocytes (%) (Auto) 9 % (0-9) 10 % (0-9) Eosinophils (%) (Auto) 2 % (0-3) 1 % (0-3) Basophils (%) (Auto) 0 % (0-3) 1 % (0-3) Neutrophils # (Auto) 7.2 x10^3/uL (1.8-7.7) 5.6 x10^3/uL (1.8-7.7) Lymphocytes # (Auto) 0.9 x10^3/uL (1.0-4.8) 0.9 x10^3/uL (1.0-4.8) Monocytes # (Auto) 0.8 x10^3/uL (0.0-1.1) 0.7 x10^3/uL (0.0-1.1) Eosinophils # (Auto) 0.2 x10^3/uL (0.0-0.7) 0.1 x10^3/uL (0.0-0.7) Basophils # (Auto) 0.0 x10^3/uL (0.0-0.2) 0.1 x10^3/uL (0.0-0.2) Platelet Estimate Increased (ADEQUATE) Hypochromasia Mod Poikilocytosis Slight Anisocytosis Mod Microcytosis Marked Sodium Level 139 mmol/L (136-145) 141 mmol/L (136-145) Potassium Level 3.7 mmol/L (3.5-5.1) 4.0 mmol/L (3.5-5.1) Chloride Level 102 mmol/L (98-107) 103 mmol/L (98-107) Carbon Dioxide Level 31 mmol/L (21-32) 32 mmol/L (21-32) Anion Gap 6 (6-14) 6 (6-14) Blood Urea Nitrogen 15 mg/dL (7-20) 15 mg/dL (7-20) Creatinine 1.1 mg/dL (0.6-1.0) 1.2 mg/dL (0.6-1.0) Estimated GFR (Cockcroft-Gault) 59.8 54.1 Glucose Level 94 mg/dL (70-99) 103 mg/dL (70-99) Calcium Level 9.4 mg/dL (8.5-10.1) 8.9 mg/dL (8.5-10.1) Troponin I Quantitative 0.073 ng/mL (0.000-0.055) 0.088 ng/mL (0.000-0.055) EY-Ixx-R-Type Natriuretic Peptide 838 pg/mL (0-124) SARS-CoV-2 Antigen (Rapid) Negative (NEGATIVE) Laboratory Tests Test 08/09/21 19:38 08/10/21 01:30 White Blood Count 9.1 x10^3/uL (4.0-11.0) 7.5 x10^3/uL (4.0-11.0) Red Blood Count 5.68 x10^6/uL (3.50-5.40) 5.41 x10^6/uL (3.50-5.40) Hemoglobin 11.2 g/dL (12.0-15.5) 10.7 g/dL (12.0-15.5) Hematocrit 35.6 % (36.0-47.0) 33.8 % (36.0-47.0) Mean Corpuscular Volume 63 fL (79-100) 63 fL (79-100) Mean Corpuscular Hemoglobin 20 pg (25-35) 20 pg (25-35) Mean Corpuscular Hemoglobin Concent 31 g/dL (31-37) 32 g/dL (31-37) Red Cell Distribution Width 22.9 % (11.5-14.5) 22.1 % (11.5-14.5) Platelet Count 553 x10^3/uL (140-400) 509 x10^3/uL (140-400) Neutrophils (%) (Auto) 79 % (31-73) 75 % (31-73) Lymphocytes (%) (Auto) 10 % (24-48) 13 % (24-48) Monocytes (%) (Auto) 9 % (0-9) 10 % (0-9) Eosinophils (%) (Auto) 2 % (0-3) 1 % (0-3) Basophils (%) (Auto) 0 % (0-3) 1 % (0-3) Neutrophils # (Auto) 7.2 x10^3/uL (1.8-7.7) 5.6 x10^3/uL (1.8-7.7) Lymphocytes # (Auto) 0.9 x10^3/uL (1.0-4.8) 0.9 x10^3/uL (1.0-4.8) Monocytes # (Auto) 0.8 x10^3/uL (0.0-1.1) 0.7 x10^3/uL (0.0-1.1) Eosinophils # (Auto) 0.2 x10^3/uL (0.0-0.7) 0.1 x10^3/uL (0.0-0.7) Basophils # (Auto) 0.0 x10^3/uL (0.0-0.2) 0.1 x10^3/uL (0.0-0.2) Platelet Estimate Increased (ADEQUATE) Hypochromasia Mod Poikilocytosis Slight Anisocytosis Mod Microcytosis Marked Sodium Level 139 mmol/L (136-145) 141 mmol/L (136-145) Potassium Level 3.7 mmol/L (3.5-5.1) 4.0 mmol/L (3.5-5.1) Chloride Level 102 mmol/L (98-107) 103 mmol/L (98-107) Carbon Dioxide Level 31 mmol/L (21-32) 32 mmol/L (21-32) Anion Gap 6 (6-14) 6 (6-14) Blood Urea Nitrogen 15 mg/dL (7-20) 15 mg/dL (7-20) Creatinine 1.1 mg/dL (0.6-1.0) 1.2 mg/dL (0.6-1.0) Estimated GFR (Cockcroft-Gault) 59.8 54.1 Glucose Level 94 mg/dL (70-99) 103 mg/dL (70-99) Calcium Level 9.4 mg/dL (8.5-10.1) 8.9 mg/dL (8.5-10.1) Troponin I Quantitative 0.073 ng/mL (0.000-0.055) 0.088 ng/mL (0.000-0.055) UJ-Fje-C-Type Natriuretic Peptide 838 pg/mL (0-124) SARS-CoV-2 Antigen (Rapid) Negative (NEGATIVE) Images: Images PROCEDURE: PORTABLE CHEST 1V XR CHEST 1V History: Reason: CHEST PAIN / Spl. Instructions: / History: Comparison: September 13, 2016 Findings: Mild interstitial prominence. No pleural effusion. No pneumothorax. Enlarged cardiac size, unchanged. Left-sided ICD, unchanged. Postop changes overlying the left upper chest. Impression: 1. Mild interstitial prominence, may relate to chronic interstitial changes al though can be seen with mild pulmonary edema. 2. Cardiomegaly, unchanged Assessment/Plan Assessment/Plan Chest pain concerning for unstable angina/NSTEMI, most likely costochondritis/musculoskeletal Elevated BNP MAGNOLIA due to vasomotor nephropathy Microcytic anemia, iron deficiency anemia Thrombocytosis History of CHF History of COPD History of hypertension History of dyslipidemia History of stroke Currently on ruxolitinib for likely myelofibrosis Admit to hospitalist service for further management Pending ferritin and iron panel and FOBT Pending lipid panel Heart score of 6 EKG showing Troponin of 0.073 and 0.088 Continue aspirin, consider Plavix if intermediate risk will defer this to cardiology Cardiology consulted for predischarge stress testing or left heart cath Continue nitroglycerin as needed for pain Continue beta-amie if blood pressures allow Continue high intensity statins IV morphine as needed Consider Lovenox Maintain O2 sats between 88 to 95% Trend troponins Repeat EKG in the a.m. Continue telemetry monitoring Monitor for electrolyte abnormalities Avoid NSAIDs Justifications for Admission Other Justification MONA MEJIA MD Aug 10, 2021 07:47
[2021-08-10 10:06] VITALS: BP 123/63
[2021-08-10 10:45] LABS: CHOLESTEROL/HDL RATIO 2.4
--- NOTE | 2021-08-10 10:54 | NUR ---
SS following for discharge planning. SS reviewed pt chart and discussed with pt RN. Pt is from home and is currently requiring oxygen at two liters nasal canula. COVID19 negative. Cardiology consulted. SS will continue to follow for discharge planning.
--- NOTE | 2021-08-10 12:11 | PDOC2 ---
JOE HAMILTON MUSEUM EXHIBIT TECHNICIAN 08/10/21 1211: CARDIAC CONSULT DATE OF CONSULT Date of Consult DATE: 08/10/21 TIME: 11:24 REASON FOR CONSULT Reason for Consult: Chest pain REFERRING PHYSICIAN Referring Physician: Khoi SOURCE Source: Chart review, Patient HISTORY OF PRESENT ILLNESS HISTORY OF PRESENT ILLNESS This is a pleasant 70 yo female admitted for complains of chest pain. Reports that this is not the same when she had her SC. Reports this woke her up at night and feeling dull achy mid chest with no diaphoresis. Also lastely having some nausea and have some sour tasting in her mouth but no vomiting. She has hx of GERD and PUD. She uses O2 continuously 2-3 LPM. Positive for orthopnea and PND. She took 1 NTG and actually better right now. Again her discomfort is reproducible. She does check her BP at home regularly and did not check it when she started having chest pain. No palpitations. No recent falls or injury. PAST MEDICAL HISTORY Cardiovascular: CAD, CHF, HTN, Hyperlipidemia, Other (ICM) Pulmonary: Asthma, COPD CENTRAL NERVOUS SYSTEM: Carpal Tunnel Syndrome, CVA, Migraine, Periperal neuropathy GI: GERD, Peptic Ulcer disease Heme/Onc: Anemia NOS, Other (polycythemia vera) Psych: Anxiety Musculoskeletal: Osteoarthritis Rheumatologic: Gout ENT: Other (dry eye syndrome) Renal/: No pertinent hx Endocrine: No pertinent hx PAST SURGICAL HISTORY Past Surgical History: Pacemaker (ICD), Arthroscopy (left ankle), Total knee replacement (left ), Tonsillectomy, Hysterectomy, Other (Carpal tunnel repair/ PCI/stents, right carotid endarterectomy; subclavian artery stenosis with revascularization. ) FAMILY HISTORY Family History: Heart Disease SOCIAL HISTORY Smoke: Quit ALCOHOL: none Drugs: None Lives: with Family CURRENT MEDICATIONS CURRENT MEDICATIONS Current Medications Medications (Trade) Dose Ordered Sig/Junior Route PRN Reason Start Time Stop Time Status Last Admin Dose Admin Acetaminophen (Tylenol) 650 mg PRN Q4HRS PRN PO FEVER > 100.3'F 08/09/21 21:00 08/10/21 20:59 08/09/21 22:49 Cyclobenzaprine HCl (Flexeril) 10 mg 1X ONCE PO 08/09/21 22:30 08/09/21 22:31 DC 08/09/21 22:49 Aspirin (Charo Aspirin) 325 mg 1X ONCE PO 08/09/21 23:00 08/09/21 23:01 DC 08/09/21 22:49 ALLERGIES ALLERGIES: Coded Allergies: JU Inhibitors (Verified Allergy, Severe, ANAPHYLAXIS, 09/13/16) Iodine and Iodide Containing Produc (Verified Allergy, Severe, PT STATES CPR FOLLOWING IODINE INJECTION AT [facility], 12/24/18) levofloxacin (Verified Allergy, Severe, ANAPHYLAXIS, 09/13/16) Sulfa (Sulfonamide Antibiotics) (Verified Allergy, Intermediate, RASH, ) celecoxib (Verified Allergy, Intermediate, ANAPHYLAXIS, 10/16/19) digoxin (Verified Allergy, Intermediate, 01/31/17) doxycycline (Verified Allergy, Intermediate, RASH, 09/13/16) hydrochlorothiazide (Verified Allergy, Intermediate, 01/31/17) hydrocodone (Verified Allergy, Intermediate, 01/31/17) lisinopril (Verified Allergy, Intermediate, 01/31/17) nortriptyline (Verified Allergy, Intermediate, STOMACH UPSET, 12/24/18) oxycodone (Verified Allergy, Intermediate, ITCHING ONLY WHEN TAKING HIGH DOSES, 10/16/19) pentazocine (Verified Allergy, Intermediate, RASH, 09/13/16) ROS Review of System 14 point ROS evaluated with pertinent positives noted per HPI PHYSICAL EXAM General: Alert, Oriented X3, Cooperative, No acute distress HEENT: Atraumatic, Mucous membr. moist/pink Lungs: Other (diminished) Heart: Regular rate (SR), Normal S1, Normal S2, Other (distant heart sounds) Abdomen: Soft, No tenderness Extremities: No cyanosis, Other (2+ bilateral LE pitting edema) Skin: No breakdown, No significant lesion Neuro: Normal speech, Sensation intact Psych/Mental Status: Mental status NL, Mood NL MUSCULOSKELETAL: Osteoarthritic changes both hands VITALS/I&O VITALS/I&O: Vital Signs Date Time Temp Pulse Resp B/P (MAP) Pulse Ox O2 Delivery O2 Flow Rate FiO2 08/10/21 10:06 98.2 72 18 123/63 (83) 99 Nasal Cannula 2.0 98.2 I & O 08/09/21 08/09/21 08/10/21 15:00 23:00 07:00 Intake Total 0 ml Balance 0 ml LABS Lab: Laboratory Tests Test 08/09/21 19:38 08/10/21 01:30 08/10/21 10:09 White Blood Count 9.1 x10^3/uL (4.0-11.0) 7.5 x10^3/uL (4.0-11.0) Red Blood Count 5.68 x10^6/uL (3.50-5.40) H 5.41 x10^6/uL (3.50-5.40) H Hemoglobin 11.2 g/dL (12.0-15.5) L 10.7 g/dL (12.0-15.5) L Hematocrit 35.6 % (36.0-47.0) L 33.8 % (36.0-47.0) L Mean Corpuscular Volume 63 fL (79-100) L 63 fL (79-100) L Mean Corpuscular Hemoglobin 20 pg (25-35) L 20 pg (25-35) L Mean Corpuscular Hemoglobin Concent 31 g/dL (31-37) 32 g/dL (31-37) Red Cell Distribution Width 22.9 % (11.5-14.5) H 22.1 % (11.5-14.5) H Platelet Count 553 x10^3/uL (140-400) H 509 x10^3/uL (140-400) H Neutrophils (%) (Auto) 79 % (31-73) H 75 % (31-73) H Lymphocytes (%) (Auto) 10 % (24-48) L 13 % (24-48) L Monocytes (%) (Auto) 9 % (0-9) 10 % (0-9) H Eosinophils (%) (Auto) 2 % (0-3) 1 % (0-3) Basophils (%) (Auto) 0 % (0-3) 1 % (0-3) Neutrophils # (Auto) 7.2 x10^3/uL (1.8-7.7) 5.6 x10^3/uL (1.8-7.7) Lymphocytes # (Auto) 0.9 x10^3/uL (1.0-4.8) L 0.9 x10^3/uL (1.0-4.8) L Monocytes # (Auto) 0.8 x10^3/uL (0.0-1.1) 0.7 x10^3/uL (0.0-1.1) Eosinophils # (Auto) 0.2 x10^3/uL (0.0-0.7) 0.1 x10^3/uL (0.0-0.7) Basophils # (Auto) 0.0 x10^3/uL (0.0-0.2) 0.1 x10^3/uL (0.0-0.2) Platelet Estimate Increased (ADEQUATE) Hypochromasia Mod Poikilocytosis Slight Anisocytosis Mod Microcytosis Marked Sodium Level 139 mmol/L (136-145) 141 mmol/L (136-145) Potassium Level 3.7 mmol/L (3.5-5.1) 4.0 mmol/L (3.5-5.1) Chloride Level 102 mmol/L (98-107) 103 mmol/L (98-107) Carbon Dioxide Level 31 mmol/L (21-32) 32 mmol/L (21-32) Anion Gap 6 (6-14) 6 (6-14) Blood Urea Nitrogen 15 mg/dL (7-20) 15 mg/dL (7-20) Creatinine 1.1 mg/dL (0.6-1.0) H 1.2 mg/dL (0.6-1.0) H Estimated GFR (Cockcroft-Gault) 59.8 54.1 Glucose Level 94 mg/dL (70-99) 103 mg/dL (70-99) H Calcium Level 9.4 mg/dL (8.5-10.1) 8.9 mg/dL (8.5-10.1) Troponin I Quantitative 0.073 ng/mL (0.000-0.055) 0.088 ng/mL (0.000-0.055) 0.086 ng/mL (0.000-0.055) EQ-Ffg-L-Type Natriuretic Peptide 838 pg/mL (0-124) H SARS-CoV-2 Antigen (Rapid) Negative (NEGATIVE) Iron Level 16 ug/dL (50-170) L Total Iron Binding Capacity 363 ug/dL (250-450) Iron Saturation 4 % (15-34) L Ferritin 11 ng/mL (8-252) Triglycerides Level 49 mg/dL (0-150) Cholesterol Level 125 mg/dL (0-200) LDL Cholesterol, Calculated 62 mg/dL (0-100) VLDL Cholesterol, Calculated 10 mg/dL (0-40) Non-HDL Cholesterol Calculated 72 mg/dL (0-129) HDL Cholesterol 53 mg/dL (40-60) Cholesterol/HDL Ratio 2.4 Laboratory Tests 08/09/21 19:38 08/10/21 01:30 Laboratory Tests 08/09/21 19:38 08/10/21 01:30 ECHOCARDIOGRAM ECHOCARDIOGRAM 12/11/2020 [facility] 1. Normal left ventricle size. Slightly reduced function with anterior, lateral, and inferior wall motion abnormalities. Ejection fraction ~45%. Moderate diastolic dysfunction with elevated filling pressure. 2. Mild mitral regurgitation. 3. Elevated pulmonary artery pressure. PA systolic pressure=58 mm Hg (normal <40 mm Hg). 4. Preserved right ventricular ejection fraction. Mild tricuspid regurgitation. 5. Normal central venous pressure. ASSESSMENT/PLAN ASSESSMENT/PLAN 1. Atypical mid chest pain: reproducible with palpation 2. CAD: past stents 3. ICM 4. AICD in situ: reported [facility]. 5. Acute on chronic systolic CHF: recent EF at 45% mild 6. HTN: controlled 7. HLP 8. Hx of of CVA 9. Hx of right CEA 10. Polycythemia vera: seen by hemon 11. Mild troponin elevation: No acute changes to EKG SR. Peaked at 0.088. Doubt ACS. contributing factors possibly from labile BP episodes vs arrhythmias with associated CHF 12. COPD with chronic O2 use: unchanged needs 2-3 LPM continuous 13. Hx of GERD and PUID Recommendations 1. Continue ASA and antianginals and secondary prevention measures. Discussed routine HBPM 2. Limited TTE. If no significant changes then outpt MPI per Dr. Acharya at [facility] cardiology 3. Continue lasix therapy, IV dose today 4. Will interrogate device if possible If no further changes then may DC this evening 5. Discussed workup and she would prefer Dr. Acharya to do ischemic workup on her and would like to have stress test. Talked to Aiyana Monique at cardiology LYNETTE HORVATH MD 08/10/21 4832: CARDIAC CONSULT ASSESSMENT/PLAN ASSESSMENT/PLAN Patient seen and examined I agree with our nurse practitioner assessment and plan. Atypical mid chest pain: reproducible with palpation. Echo with unchanged LV systolic function. Outpatient stress testing through her primary scallop dredger as above. CAD: past stents Ischemic cardiomyopathy. AICD in situ: reported [facility]. Feeling significantly better. Followed at [facility]. Acute on chronic systolic CHF: recent EF at 45%. Updated echocardiogram at approximately 50% ejection fraction. HTN: controlled HLP. Continue present medications. Hx of of CVA Hx of right CEA Mild troponin elevation: No acute changes to EKG SR. Peaked at 0.088. Doubt ACS. contributing factors possibly from labile BP episodes vs arrhythmias with associated CHF COPD with chronic O2 use: unchanged needs 2-3 LPM continuous JOE HAMILTON APRN Aug 10, 2021 12:11 LYNETTE HORVATH MD Aug 10, 2021 15:42
[2021-08-10] MEDS ORDERED: FUROSEMIDE 40 MG/4 ML VIAL. IVP ONE (12:15)
[2021-08-10] MEDS ORDERED: CYCLOBENZAPRINE 10 MG TABLET. PO PRN (12:45)
--- NOTE | 2021-08-10 13:31 | CARD ---
MR#: [id number] Date of Study: 08/10/2021 Ordering Physician: JOE HAMILTON, Referring Physician: JOE HAMILTON Tech: Lynn Brown BERTHA APPROVED REPORT EXAM: Two-dimensional and M-mode echocardiogram with Doppler and color Doppler. Other Information Quality : Technically LimitedHR: 75bpm Rhythm : NSR INDICATION RISK FACTORS Hypertension Obesity Hyperlipidemia Diabetes Tricuspid Valve TR P. [id number] Peak Gr.33mmHg LEFT VENTRICLE The left ventricle is normal size. There is normal left ventricular wall thickness. The systolic func tion is at the lower limits of normal. Left ventricular ejection fraction is estimated at 50%. Ther e is mild anterior hypokinesis. RIGHT VENTRICLE The right ventricle is borderline dilated. There is normal right ventricular wall thickness. The righ t ventricular systolic function is normal. ATRIA The left atrium size is normal. The right atrium is borderline dilated. The interatrial septum is int act with no evidence for an atrial septal defect or patent foramen ovale as noted on 2-D or Doppler i maging. AORTIC VALVE The aortic valve is normal in structure and function. Doppler and Color Flow revealed no significant aortic regurgitation. There is no significant aortic valvular stenosis. MITRAL VALVE The mitral valve is normal in structure and function. There is no evidence of mitral valve prolapse. There is no mitral valve stenosis. Doppler and Color-flow revealed trace mitral regurgitation. TRICUSPID VALVE Doppler and Color Flow revealed mild tricuspid regurgitation. Estimated PAP 35-40 mmHg. There is no t ricuspid valve stenosis. GREAT VESSELS The aortic root is normal in size. The IVC is normal in size and collapses >50% with inspiration. PERICARDIAL EFFUSION There is no evidence of significant pericardial effusion. Critical Notification Critical Value: No <Conclusion> The left ventricle is normal size. The systolic function is at the lower limits of normal. Left ventricular ejection fraction is estimated at 50%. There is mild anterior hypokinesis. Doppler and Color-flow revealed trace mitral regurgitation. Doppler and Color Flow revealed mild tricuspid regurgitation. Estimated PAP 35-40 mmHg. Signed by : Tyler Walsh MD Electronically Approved : 08/10/2021 13:30:39
[2021-08-10] MEDS: ASPIRIN ENTERIC COATED 81 MG TABLET.DR. PO SCH (13:41)
[2021-08-10] MEDS: RANOLAZINE 500 MG TAB.ER.12H PO SCH ×2 (13:41→21:08)
[2021-08-10] MEDS: EZETIMIBE 10 MG TABLET. PO SCH (13:41)
[2021-08-10] MEDS: ATORVASTATIN CALCIUM 40 MG TABLET. PO SCH (13:42)
[2021-08-10] MEDS: METOPROLOL SUCC 24HR ER 25 MG TAB.ER.24H. PO SCH (13:43)
[2021-08-10] MEDS: SPIRONOLACTONE 25 MG TABLET PO SCH (13:43)
[2021-08-10] MEDS: OXYBUTYNIN CHLORIDE 5 MG TABLET PO SCH ×2 (13:45→21:09)
[2021-08-10] MEDS ORDERED: IRON SUCROSE COMPLEX 200 MG in IV NORMAL SALINE 100ML 100 ML IV ONE (14:00)
[2021-08-10 14:57] VITALS: BP 133/63
[2021-08-10 16:16] LABS: FECAL OB PT NEGATIVE (NEG)
--- NOTE | 2021-08-10 17:29 | EKG ---
[facility] [address] [place] [address] Test Date: 2021-08-09 Test Time: 18:54:04 Pat Name: EMERY VOGT Department: Room: Gender: F Reading Teacher: : 1950 Requested By: FLO CABRAL Order Number: [id number] Reading MD: Measurements Intervals [place] Rate: 85 P: 41 TX: 172 QRS: 26 QRSD: 120 T: 69 QT: 384 QTc: 457 Interpretive Statements SINUS RHYTHM LEFT ATRIAL ABNORMALITY T ABNORMALITY IN HIGH LATERAL LEADS ABNORMAL ECG RI6.02 No previous ECG available for comparison
[2021-08-10 19:05] VITALS: BP 114/63
[2021-08-10] MEDS ORDERED: diphenhydrAMINE HCL 25 MG CAPSULE PO PRN (20:15)
[2021-08-10] MEDS ORDERED: LOSARTAN POTASSIUM 25 MG TABLET. PO SCH (21:00)
[2021-08-10] MEDS: RUXOLITINIB PHOSPHATE PO SCH (21:16)
--- NOTE | 2021-08-10 21:17 | NUR ---
Medication Jakafi non administered as not available. Patient states Dr. Robles doesn't want her to take until she comes to see him.
[2021-08-10 23:15] VITALS: BP 139/66
[2021-08-11 03:00] VITALS: BP 157/82
[2021-08-11 07:00] VITALS: BP 166/90
[2021-08-11] MEDS ORDERED: PANTOPRAZOLE 40 MG TABLET.DR. PO SCH (07:30)
[2021-08-11] MEDS: RANOLAZINE 500 MG TAB.ER.12H PO SCH (08:35)
[2021-08-11] MEDS: ATORVASTATIN CALCIUM 40 MG TABLET. PO SCH (08:35)
[2021-08-11] MEDS: SPIRONOLACTONE 25 MG TABLET PO SCH (08:35)
[2021-08-11] MEDS: OXYBUTYNIN CHLORIDE 5 MG TABLET PO SCH (08:35)
[2021-08-11] MEDS: METOPROLOL SUCC 24HR ER 25 MG TAB.ER.24H. PO SCH (08:36)
[2021-08-11] MEDS: ASPIRIN ENTERIC COATED 81 MG TABLET.DR. PO SCH (08:36)
[2021-08-11] MEDS: EZETIMIBE 10 MG TABLET. PO SCH (08:36)
--- NOTE | 2021-08-11 08:50 | DISCH ---
DISCHARGE INSTRUCTIONS Condition on Discharge Condition on Discharge: Stable Activity After Discharge Activity Instructions for Disc: Activity as tolerated Lifting Instructions after Dis: Do not lift >10 pounds Exercise Instruction after Dis: Walk 15 min, 3 x per day Driving Instructions after Dis: Do not drive today Weight Bearing Status after Di: As tolerated Diet after Discharge Diet after Discharge: Cardiac Diet Texture: Regular Follow-Up Follow up with: PCP within 2 weeks of discharge Follow Up With: Cardiology as needed MONA MEJIA MD Aug 11, 2021 08:50
[2021-08-11] MEDS: RUXOLITINIB PHOSPHATE PO SCH (09:00)
[2021-08-11] MEDS ORDERED: ASPIRIN ENTERIC COATED 81 MG TABLET.DR. PO SCH (09:00)
[2021-08-11] MEDS ORDERED: POLYETHYLENE GLYCOL 3350 17 GM PACKET. PO SCH ×2 (09:00)
[2021-08-11 11:00] VITALS: BP 109/70
--- NOTE | 2021-08-17 21:37 | PDOC3 ---
[facility]-Discharge Summary Date of Admission: Date of Admission: Aug 10, 2021 Date of Discharge: Date of Discharge: Aug 11, 2021 Discharge Diagnosis: Discharge Diagnosis: Chest pain concerning for unstable angina/NSTEMI, most likely costochondritis/musculoskeletal Elevated BNP MAGNOLIA due to vasomotor nephropathy Microcytic anemia, iron deficiency anemia Thrombocytosis History of CHF History of COPD History of hypertension History of dyslipidemia History of stroke Currently on ruxolitinib for likely myelofibrosis Consults: Consults: cardiology Recommendations 1. Continue ASA and antianginals and secondary prevention measures. Discussed routine HBPM 2. Limited TTE. If no significant changes then outpt MPI per Dr. Acharya at [facility] cardiology 3. Continue lasix therapy, IV dose today 4. Will interrogate device if possible If no further changes then may DC this evening 5. Discussed workup and she would prefer Dr. Acharya to do ischemic workup on her and would like to have stress test. Talked to Aiyana Monique at cardiology LYNETTE HORVATH MD 08/10/21 1542: CARDIAC CONSULT ASSESSMENT/PLAN ASSESSMENT/PLAN Patient seen and examined I agree with our nurse practitioner assessment and plan. Atypical mid chest pain: reproducible with palpation. Echo with unchanged LV systolic function. Outpatient stress testing through her primary tool and die supervisor as above. CAD: past stents Ischemic cardiomyopathy. AICD in situ: reported [facility]. Feeling significantly better. Followed at [facility]. Acute on chronic systolic CHF: recent EF at 45%. Updated echocardiogram at approximately 50% ejection fraction. HTN: controlled HLP. Continue present medications. Hx of of CVA Hx of right CEA Mild troponin elevation: No acute changes to EKG SR. Peaked at 0.088. Doubt ACS. contributing factors possibly from labile BP episodes vs arrhythmias with associated CHF COPD with chronic O2 use: unchanged needs 2-3 LPM continuous Hospital Course: Hospital Course: 70-year-old female with past medical history of CAD, dyslipidemia, hypertension, stroke, emphysema who complains of chest pain that have been last night while she was sleeping. She describes the pain as dull like pressure that occurred s uddenly while she was sleeping and woke up her up from sleep as well. She took a nitroglycerin after the pain occurred which did help her pain and she did also report some dizziness before and after her episodes. There is no radiation and she does not endorse any other symptoms. The pain will last less than 5 minutes mady quickly. Denies any diaphoresis, shortness of breath, palpitations, syncope, diarrhea or dysuria or cough or nausea vomiting. By day of discharge, pt was clinically stable, chest pain free and ready for discharge. Rest of hospital course was uneventful Disposition: Disposition/Orders: D/C to Home Activity: Activity: Resume previous activity Diet: Diet: Cardiac Medications: Home Meds Active Scripts Cyclobenzaprine Hcl (CYCLOBENZAPRINE HCL) 10 Mg Tablet, 10 MG PO TID PRN PRN for BREAKTHROUGH PAIN, #30 TAB Prov:LILIAM GIL MD 10/18/19 Reported Medications Acetaminophen (TYLENOL) 325 Mg Tablet, 325 MG PO PRN Q6HRS PRN for MILD PAIN / TEMP > 100.3'F, TAB 08/10/21 Tizanidine Hcl (TIZANIDINE HCL) 4 Mg Tablet, 1 TAB PO PRN QHS PRN for MUSCLE PAIN, #30 TAB 08/10/21 Polyethylene Glycol 3350 (MIRALAX) 17 Gm Powd.pack, 1 PKT PO PRN DAILY PRN for CONSTIPATION, PKT 08/10/21 Metoprolol Succinate (TOPROL XL) 25 Mg Tab.er.24h, 25 MG PO DAILY for FOR HYPERTENSION, #30 TAB 0 Refills 08/10/21 Losartan Potassium (Losartan Potassium) 25 Mg Tablet, 25 MG PO QHS for HTN, TAB 08/10/21 Cyclosporine (RESTASIS) 1 Each Droperette, 1 DROP EACHEYE BID for dry eye, #60 VIAL 3 Refills 08/10/21 Aspirin (ASPIRIN EC) 81 Mg Tablet.dr, 81 MG PO DAILY for CAD, TAB.SR 08/10/21 Sucralfate (SUCRALFATE) 1 Gm Tablet, 1 GM PO BID for Ulcers, TAB 10/16/19 Albuterol Sulfate (VENTOLIN HFA INHALER) 18 Gm Hfa.aer.ad, 2 PUFF INH Q4HRS PRN for SHORTNESS OF BREATH, INHALER 0 Refills 10/16/19 Spironolactone (SPIRONOLACTONE) 25 Mg Tablet, 0.5 TAB PO DAILY for water pill, #90 TAB 1 Refill 10/16/19 Ranolazine (RANEXA) 1,000 Mg Tab.er.12h, 1 TAB PO BID for chest pain for 30 Days, #60 TAB 0 Refills 10/16/19 Omeprazole (OMEPRAZOLE) 40 Mg Capsule.dr, 1 CAP PO DAILY for stomach, #30 CAP 3 Refills 10/16/19 Ezetimibe (ZETIA) 10 Mg Tablet, 1 TAB PO DAILY for unknown for 30 Days, #30 TAB 0 Refills 10/16/19 Ruxolitinib Phosphate (JAKAFI) 10 Mg Tablet, 1 TAB PO BID for platelets for 30 Days, #60 TAB 0 Refills 10/16/19 Atorvastatin Calcium (ATORVASTATIN CALCIUM) 40 Mg Tablet, 80 MG PO DAILY for FOR CHOLESTEROL, #30 TAB 0 Refills 10/16/19 Budesonide/Formoterol Fumarate (SYMBICORT 160-4.5 MCG INHALER) 10.2 Gm Hfa.aer.ad, 10.2 GM IH BID 03/03/14 Oxybutynin Chloride (OXYBUTYNIN CHLORIDE) 5 Mg Tablet, 5 MG PO BID for overactive bladder 03/03/14 Nitroglycerin (NITROSTAT) 0.4 Mg Tab.subl, 0.4 MG SL 03/03/14 Scheduled Aspirin (Aspirin Ec), 81 MG PO DAILY, (Reported) Atorvastatin Calcium (Atorvastatin Calcium), 80 MG PO DAILY, (Reported) Budesonide/Formoterol Fumarate (Symbicort 160-4.5 Mcg Inhaler), 10.2 GM IH BID, (Reported) Cyclosporine (Restasis), 1 DROP EACHEYE BID, (Reported) Ezetimibe (Zetia), 1 TAB PO DAILY, (Reported) Losartan Potassium (Losartan Potassium), 25 MG PO QHS, (Reported) Metoprolol Succinate (Toprol Xl), 25 MG PO DAILY, (Reported) Omeprazole (Omeprazole), 1 CAP PO DAILY, (Reported) Oxybutynin Chloride (Oxybutynin Chloride), 5 MG PO BID, (Reported) Ranolazine (Ranexa), 1 TAB PO BID, (Reported) Ruxolitinib Phosphate (Jakafi), 1 TAB PO BID, (Reported) Spironolactone (Spironolactone), 0.5 TAB PO DAILY, (Reported) Sucralfate (Sucralfate), 1 GM PO BID, (Reported) Scheduled PRN Acetaminophen (Tylenol), 325 MG PO PRN Q6HRS PRN for MILD PAIN / TEMP > 100.3'F, (Reported) Albuterol Sulfate (Ventolin Hfa Inhaler), 2 PUFF INH Q4HRS PRN for SHORTNESS OF BREATH, (Reported) Cyclobenzaprine Hcl (Cyclobenzaprine Hcl), 10 MG PO TID PRN PRN for BREAKTHROUGH PAIN Polyethylene Glycol 3350 (Miralax), 1 PKT PO PRN DAILY PRN for CONSTIPATION, (Reported) Tizanidine Hcl (Tizanidine Hcl), 1 TAB PO PRN QHS PRN for MUSCLE PAIN, (Reported) Miscellaneous Medications Nitroglycerin (Nitrostat), 0.4 MG SL, (Reported) Total Time: Total Time: Total time spent was 32 minutes in preparing scripts, discharge planning with SW and RN, and preparing this discharge summary. Patient seen and examined on day of discharge. Justicifation of Admission Dx: Justifications for Admission: Justification of Admission Dx: N/A MONA MEJIA MD Aug 17, 2021 21:37
== END 2021-08-11 12:06 | disposition home or self-care (01) | DRG 205 ==
LOC: ER 18:44 → 6 SOUTH 20:11
PROVIDERS: ADMIT Student in an Organized Health Care Education/Training Program; ATTEND Student in an Organized Health Care Education/Training Program
DX: M94.0 Chondrocostal junction syndrome [Tietze] (principal); N17.0 Acute kidney failure with tubular necrosis; I50.23 Acute on chronic systolic (congestive) heart failure; E78.00 Pure hypercholesterolemia, unspecified; E78.5 Hyperlipidemia, unspecified; I11.0 Hypertensive heart disease with heart failure; I25.10 Atherosclerotic heart disease of native coronary artery without angina pectoris; Z96.652 Presence of left artificial knee joint; J43.9 Emphysema, unspecified; D50.9 Iron deficiency anemia, unspecified; D47.3 Essential (hemorrhagic) thrombocythemia; I25.5 Ischemic cardiomyopathy; F41.9 Anxiety disorder, unspecified; G43.909 Migraine, unspecified, not intractable, without status migrainosus; G62.9 Polyneuropathy, unspecified; H04.129 Dry eye syndrome of unspecified lacrimal gland; K21.9 Gastro-esophageal reflux disease without esophagitis; M19.90 Unspecified osteoarthritis, unspecified site; D45 Polycythemia vera; M10.9 Gout, unspecified; Z99.81 Dependence on supplemental oxygen; Z95.810 Presence of automatic (implantable) cardiac defibrillator; Z90.710 Acquired absence of both cervix and uterus; Z87.891 Personal history of nicotine dependence; Z87.11 Personal history of peptic ulcer disease; Z86.73 Personal history of transient ischemic attack (TIA), and cerebral infarction without residual deficits; Z80.3 Family history of malignant neoplasm of breast; Z88.2 Allergy status to sulfonamides; Z88.8 Allergy status to other drugs, medicaments and biological substances; Z88.6 Allergy status to analgesic agent; Z91.041 Radiographic dye allergy status; Z20.822 Contact with and (suspected) exposure to COVID-19
CPT/HCPCS: 36415; 71045; 80048; 80061; 82274; 82728; 83540; 83550; 83880; 84484; 85025; 87426; 93005; 93308; J1756; J1940; U0003; U0005; 99285-25; G0378; Q0163

== ENCOUNTER 2021-09-04 12:49 | Emergency (ER) | payer OTHER ==
[~2021-09-04] VITALS: Ht 165.1 cm; Wt 95.6 kg
[~2021-09-04 12:49] MED LIST changes: +ACET325T9 PO; +ASPI-886 PO; +CYCL1DRO EACHEYE; +LOSA25TA4 PO; +METO25TA2 PO; +POLY17PO29 PO; +TIZA4TAB2 PO
--- NOTE | 2021-09-04 13:14 | ED.ADGEN ---
Past Medical History Past Medical History: Asthma, CHF, COPD, High Cholesterol, Hypertension, RI, Pneumonia, Stroke, Other Additional Past Medical Histor: EMPHYSEMA Past Surgical History: No Surgical History Additional Past Surgical Histo: ICD,carotid,trach,hernia repair,lypoma remov als,L ANKLE & KNEE FUSIONS Smoking Status: Former Smoker Alcohol Use: None Drug Use: None General Adult EDM: Chief Complaint: MECHANICAL FALL HPI: HPI: Patient is a 70-year-old female who arrives ambulatory with assistance of a walker seeking evaluation after sustaining a head injury just prior to arrival. Patient reports she she tripped over her own feet as she was walking upstairs. Patient states she fell backwards and then hit her head at the back. Patient states now she has a headache. Despite this she denies any prodromal symptoms. She further denies any change in her level of consciousness, vomiting or s hortness of air. Additionally the patient had 2 falls over the weekend however she reports these falls occurred in the same manner and she states 1 time time her legs give out from under her. She denies any history of recent illness otherwise. She further denies any neck stiffness, pain or neurological change otherwise. She is awake, alert and nontoxic-appearing. She is neurologically intact Review of Systems: Review of Systems: Constitutional: Denies fever or chills. [] Eyes: Denies change in visual acuity. [] HENT: Denies nasal congestion or sore throat. [] Respiratory: Denies cough or shortness of breath. [] Cardiovascular: Denies chest pain or edema. [] GI: Denies abdominal pain, nausea, vomiting, bloody stools or diarrhea. [] : Denies dysuria. [] Musculoskeletal: Denies back pain or joint pain. [] Integument: Denies rash. [] Neurologic: Reports headache. Denies focal weakness or sensory changes. [] Endocrine: Denies polyuria or polydipsia. [] Lymphatic: Denies swollen glands. [] Psychiatric: Denies depression or anxiety. [] Allergies: Allergies: Allergies Coded Allergies Type Severity Reaction Last Updated Verified JU Inhibitors Allergy Severe ANAPHYLAXIS 09/13/16 Yes Iodine and Iodide Containing Produc Allergy Severe PT STATES CPR FOLLOWING IODINE INJECTION AT [facility] 12/24/18 Yes levofloxacin Allergy Severe ANAPHYLAXIS 09/13/16 Yes Sulfa (Sulfonamide Antibiotics) Allergy Intermediate RASH 09/13/16 Yes celecoxib Allergy Intermediate ANAPHYLAXIS 10/16/19 Yes digoxin Allergy Intermediate 01/31/17 Yes doxycycline Allergy Intermediate RASH 09/13/16 Yes hydrochlorothiazide Allergy Intermediate 01/31/17 Yes hydrocodone Allergy Intermediate 01/31/17 Yes lisinopril Allergy Intermediate 01/31/17 Yes nortriptyline Allergy Intermediate STOMACH UPSET 12/24/18 Yes oxycodone Allergy Intermediate ITCHING ONLY WHEN TAKING HIGH DOSES 10/16/19 Yes pentazocine Allergy Intermediate RASH 09/13/16 Yes Physical Exam: PE: Constitutional: Well developed, well nourished, no acute distress, non-toxic appearance. [] HENT: Normocephalic, atraumatic, bilateral external ears normal, oropharynx moist, no oral exudates, nose normal. [] Eyes: PERRLA, EOMI, conjunctiva normal, no discharge. [] Neck: Normal range of motion, no tenderness, supple, no stridor. [] Cardiovascular:Heart rate regular rhythm, no murmur [] Lungs & Thorax: Bilateral breath sounds clear to auscultation [] Abdomen: Bowel sounds normal, soft, no tenderness, no masses, no pulsatile masses. [] Skin: Warm, dry, no erythema, no rash. [] Back: No tenderness, no CVA tenderness. [] Extremities: No tenderness, no cyanosis, no clubbing, ROM intact, no edema. [] Neurologic: Alert and oriented X 3, normal motor function, normal sensory function, no focal deficits noted. [] Psychologic: Affect normal, judgement normal, mood normal. [] Current Patient Data: Vital Signs: Vital Signs Date Time Temp Pulse Resp B/P (MAP) Pulse Ox O2 Delivery O2 Flow Rate FiO2 09/04/21 13:00 98.6 74 20 134/75 (94) 100 Nasal Cannula 3.0 98.6 EKG: EKG: [] Heart Score: C/O Chest Pain: No Risk Factors: Risk Factors: DM, Current or recent (<one month) smoker, HTN, HLP, family history of CAD, obesity. Risk Scores: Score 0 - 3: 2.5% MACE over next 6 weeks - Discharge Home Score 4 - 6: 20.3% MACE over next 6 weeks - Admit for Clinical Observation Score 7 - 10: 72.7% MACE over next 6 weeks - Early Invasive Strategies Radiology/Procedures: Radiology/Procedures: [] Impression: [facility] [address] [place] [address] IMAGING REPORT Signed PATIENT: EMERY VOGTCOUNT: [id number] : 1950 LOCATION: ER AGE: 70 SEX: F EXAM STATUS: REG ER ORD. PHYSICIAN: JOSE MAXWELL DO REASON: Head injury s/p fall today. Hit back of head, pain PROCEDURE: CT HEAD WO CONTRAST PQRS Compliance Statement: One or more of the following individualized dose reduction techniques were utilized for this examination: 1. Automated exposure control 2. Adjustment of the mA and/or kV according to patient size 3. Use of iterative reconstruction technique CT head without contrast 09/04/2021 1:11 PM INDICATION: Head injury status post fall today. Hit back of the head. Pain COMPARISON: CT head 07/29/2020 TECHNIQUE: Multiple axial CT images of the head were obtained from skull base through the vertex without intravenous contrast. FINDINGS: Head: Ventricles, sulci and basal cisterns are within normal limits. There is no hydrocephalus. Carpenter-white matter differentiation is normal. There is no acute intracranial hemorrhage. There is no mass, mass effect or midline shift. Jorge ateral cerebellar infarcts are identified without significant change. There is progressive increase in size of the superior ophthalmic veins bilaterally, left greater than right (series 4, image 10). Visualized portions of the orbits are normal with exception of bilateral lens replacement. Paranasal sinuses are well aerated. Mastoid air cells are well aerated. Scalp and calvaria are normal. IMPRESSION: No acute intracranial hemorrhage. Bilateral cerebellar infarcts appear stable. Progressive increase in size of the superior ophthalmic veins, left greater than right. Etiology is uncertain on this examination. Further evaluation with CTA of the head could be of benefit. Differential considerations would include collateral vascularization from underlying vascular occlusion versus cavernous sinus etiology including carotid cavernous fistula. Electronically signed by: Nohelia Barker MD (09/04/2021 2:32 PM) [id number] DICTATED and SIGNED BY: NOHELIA BARKER MD DATE: 09/04/21 [id number] 0 Course & Med Decision Making: Course & Med Decision Making Pertinent Labs and Imaging studies reviewed. (See chart for details) The patient remains awake, alert and in no acute distress. CT imaging does not reveal any acute intracranial pathology or injury. Radiology interpretation did mention about a possible occlusive process in the ophthalmic veins. I did speak with the patient about possible CT angiography of the head and neck and she informed me that she has an allergic reaction to contrast. Specifically the patient reports that her heart stopped when she was given this. I am not prepared to perform such a procedure given the patient's history of adverse events related to contrast administration. As result have asked that she follow-up with her primary care physician for further study. Should the patient experience any neurological changes to her condition, I have advised she return. I also advised that she return for any shortness of air or mental status changes. The patient understands and has agreed to return as needed. She is nontoxic-appearing and stable for discharge [] Dragon Disclaimer: Dragiraida Disclaimer: This electronic medical record was generated, in whole or in part, using a voice recognition dictation system. Departure Departure Impression: Primary Impression: Closed head injury Additional Impression: Fall Disposition: 01 HOME / SELF CARE / HOMELESS Condition: STABLE Referrals: CONNIE CARABALLO MD (PCP) Patient Instructions: Fall Prevention and Home Safety, Head Injury, Adult Scripts Ondansetron Hcl (ZOFRAN) 4 Mg Tablet 1 TAB PO Q6HRS, #12 TAB Prov: JOSE MAXWELL DO 09/04/21 Problem Qualifiers JOSE MAXWELL DO Sep 04, 2021 13:14
--- NOTE | 2021-09-04 14:34 | RAD ---
PQRS Compliance Statement: One or more of the following individualized dose reduction techniques were utilized for this examinat ion: 1. Automated exposure control 2. Adjustment of the mA and/or kV according to patient size 3. Use of iterative reconstruction technique CT head without contrast 09/04/2021 1:11 PM INDICATION: Head injury status post fall today. Hit back of the head. Pain COMPARISON: CT head 07/29/2020 TECHNIQUE: Multiple axial CT images of the head were obtained from skull base through the vertex with out intravenous contrast. FINDINGS: Head: Ventricles, sulci and basal cisterns are within normal limits. There is no hydrocephalus. Carpenter-white matter differentiation is normal. There is no acute intracranial hemorrhage. There is no mass, mass e ffect or midline shift. Bilateral cerebellar infarcts are identified without significant change. Ther e is progressive increase in size of the superior ophthalmic veins bilaterally, left greater than rig ht (series 4, image 10). Visualized portions of the orbits are normal with exception of bilateral lens replacement. Paranasal sinuses are well aerated. Mastoid air cells are well aerated. Scalp and calvaria are normal. IMPRESSION: No acute intracranial hemorrhage. Bilateral cerebellar infarcts appear stable. Progressive increase in size of the superior ophthalmic veins, left greater than right. Etiology is u ncertain on this examination. Further evaluation with CTA of the head could be of benefit. Differenti al considerations would include collateral vascularization from underlying vascular occlusion versus cavernous sinus etiology including carotid cavernous fistula. Electronically signed by: Veronica Cantor MD (09/04/2021 2:32 PM) [id number]
[2021-09-04] MEDS ORDERED: ONDA4TAB7 PO (14:52)
[2021-09-04] MEDS ORDERED: ACETAMINOPHEN 500 MG TABLET PO ONE (15:15)
== END 2021-09-04 15:20 | disposition home or self-care (01) ==
LOC: ER 12:49
DX: S09.90XA Unspecified injury of head, initial encounter (principal); J44.9 Chronic obstructive pulmonary disease, unspecified; E78.00 Pure hypercholesterolemia, unspecified; I25.2 Old myocardial infarction; Z86.73 Personal history of transient ischemic attack (TIA), and cerebral infarction without residual deficits; I11.0 Hypertensive heart disease with heart failure; I50.9 Heart failure, unspecified; Z87.891 Personal history of nicotine dependence; Z88.5 Allergy status to narcotic agent; Z88.1 Allergy status to other antibiotic agents; Z88.2 Allergy status to sulfonamides; Z88.6 Allergy status to analgesic agent; Z88.8 Allergy status to other drugs, medicaments and biological substances; W22.8XXA Striking against or struck by other objects, initial encounter; Y93.89 Activity, other specified; Y92.89 Other specified places as the place of occurrence of the external cause; Y99.8 Other external cause status
CPT/HCPCS: 70450; 99284-25